=== PATIENT | female | born 1990 | race Caucasian/White ===

== ENCOUNTER → 2017-06-21 09:52 | Observation (INO) ==
[2017-06-20 16:28] LABS: Bilirubin,Urine Negative (Negative); Blood,Urine Negative (Negative); Clarity,Urine Clear (Clear); Color,Urine Yellow (Yellow); Glucose,Urine (UA) 100 mg/dL (Normal); Ketones,Urine Negative (Negative); Leukocyte Esterase,Urine Negative (Negative); Nitrite,Urine Negative (Negative); Protein,Urine Negative (Neg-Trace); Specific Gravity,Urine 1.022 (1.010-1.025); Urobilinogen,Urine Normal (Normal)
[2017-06-20 16:57] LABS: Basophils % 0.2 %; Eosinophils % 0.4 %; Hematocrit 35.7 % (35.3-44.9); Hemoglobin 12.6 g/dL (11.5-15.4); Immature Granulocytes % 0.8 % (0-4); Lymphocytes # 2.1 K/mcL (0.6-4.6); Lymphocytes % 21.2 %; Mean Corpuscular HGB Conc 35.3 g/dL (31.6-35.5); Mean Corpuscular Hemoglobin 32.1 pg (28.0-33.3); Mean Corpuscular Volume 90.8 fL (83.0-100.0); Mean Platelet Volume 10.8 fL (9.4-12.4); Monocytes # 0.5 K/mcL (0.0-1.3); Monocytes % 5.2 %; Neutrophils # 7.1 K/mcL (1.6-8.9); Platelet Count 186 K/mcL (140-400); Red Blood Count 3.93 M/mcL (3.82-4.97); Segmented Neutrophils % 72.2 %
--- NOTE | 2017-06-20 17:10 | OB/GYN History & Physical ---
Date of Encounter: 06/20/17 Time of Encounter: 16:58 Assessment and Plan (1) Headache in Current visit: Yes Status: Acute PIH labs - pending Serial blood pressures - pending, first blood pressure normal Qualifiers: Trimester: second trimester Qualified Code(s): O26.892 - Other specified related conditions, second trimester; R51 - Headache (2) CVA tenderness Current visit: Yes Status: Acute Urine - increased glucose (serum glucose pending) IV fluids - 1 liter LR (3) Vaginal discharge during Current visit: Yes Status: Acute Vaginosis panel pending Qualifiers: Trimester: second trimester Qualified Code(s): O26.892 - Other specified related conditions, second trimester; N89.8 - Other specified noninflammatory disorders of vagina (4) 27 weeks gestation of Current visit: Yes Status: Acute History of Present Illness Chief complaint: Back Pain HPI: Ms. Payne is a 26 year old at 27 weeks and 5 days that presents to labor and delivery triage with c/o vaginal discharge, back pain, and feeling like she has a "sledge hammer in my belly and its pushing everything out". She states positive movement. She admits to intercourse in the past 24 hours. She states she has had a headache for 24 hours and has elevated blood pressure previously in this (no documentation of this in her ) . She also states she felt feverish and had the sweats last night. She also complains that she just "doesn't feel right". Past Med Surg Social Fam HX - Past Medical History Medical history: asthma, other Psychiatric history: anxiety, depression, panic disorder - Social History Smoking Status: Never smoker Smokeless Tobacco Status: No Alcohol use: none Drug use: none - Family History Father Living Status: Still Living Hx Family Cardiac Disorders: Yes Obstetrical History - Pregnancies : 4 Para: 1 Term: 1 : 0 Ab's: 2 Livin Medications and Allergies Ondansetron [Zofran] 8 mg PO Q6HR PRN #15 tablet 10/16/15 [Rx] Albuterol Sulfate [Albuterol Inhaler] 1 puff IH 12/04/15 [History] Buspirone HCl [Buspar] 5 mg PO 12/04/15 [History] Citalopram [CeleXA] 20 mg PO DAILY 12/04/15 [History] Dextroamphetamine/Amphetamine [Adderall Xr 10 mg Capsule] 10 mg PO 12/04/15 [ History] Polymyxn-B/Trimeth Opth Drops [Polytrim Opth Drops] 2 drop RIGHT EYE QID #1 bottle 12/04/15 [Rx] Trazodone HCl [TraZODone] 100 mg PO 12/04/15 [History] Albuterol Sulfate [Proair Hfa] 1 puff IH Q4H #1 inh 01/20/16 [Rx] Azithromycin [Azithromycin 6-Tab Pack] 250 mg PO PER PKG DI #6 tab 01/20/16 [Rx] Benzonatate [Tessalon] 100 mg PO TID #30 capsule 01/20/16 [Rx] Promethazine/Codeine [Phenergan/Codeine] 5 ml PO Q4HR #240 ml 01/20/16 [Rx] Dicyclomine [Bentyl] 20 mg PO QID PRN #20 capsule 04/17/16 [Rx] Diphenoxylate/Atropine [Lomotil 2.5 mg/0.025 mg] 1 tab PO BID PRN #8 tablet 05/12 [Rx] Ondansetron [Zofran] 8 mg PO Q8HR PRN #10 tablet 12/03/16 [Rx] metroNIDAZOLE [Flagyl] 500 mg PO BID #14 tablet 01/29/17 [Rx] 3 Allergy/AdvReac Type Severity Reaction Status Date / Time Amoxicillin [From Augmentin] Allergy Diarrhea Verified 12/03/16 13:53 clavulanic acid Allergy Diarrhea Verified 12/03/16 13:53 [From Augmentin] latex Allergy Rash Verified 01/28/17 20:39 all cillins Allergy Rash Uncoded 12/04/15 07:52 Review of System OB All systems PM: reviewed and no additional remarkable complaints except as stated Exam - Constitutional Constitutional: well developed, well nourished, no acute distress, obese - HEENT HEENT: Normocephaly, Mucus Membranes Moist - Lungs Respiratory exam: CTAB - Cardiovascular Cardiovascular exam: RRR, +S1, +S2 - Breasts Breast: bilateral: normal - Abdomen Abdomen: Present: bowel sounds normal, gravid. Absent: non tender (left CVA tenderness) - Extremities Extremities exam: normal capillary refill, normal inspection, radial pulses palpable and symmetrical Deep Tendon Reflex Grade: 2+ Normal - Vulva Vulva: bilateral: normal - Vagina Vagina: Present: normal moisture - Cervix Dilation: 0 (FT) Effacement: 0 (Thick) Station: -3 - Uterus Uterus exam: Present: normal size, normal contour Results Abnormal lab results Urine Glucose (UA) 100 mg/dL (Normal) H 06/20/17 16:18 All other labs normal. - VTE Reasons for not Prescribing Prophylaxis: Treatment not Indicated - Low risk for VTE
[2017-06-20 17:13] LABS: Alanine Aminotransferase 11 Units/L (0-55); Aspartate Amino Transferase 10 Units/L (5-34); BUN/Creatinine Ratio 11 (6-26); Blood Urea Nitrogen 7 mg/dL (7-20); Lactate Dehydrogenase 160 Units/L (159-327); Uric Acid 4.4 mg/dL (2.6-6.0); eGFR For African Americans > 60 (> 60); eGFR For Non-African Americans > 60 (> 60)
[2017-06-20 17:47] LABS: Trichomonas DNA Not Detected (Not Detect)
[2017-06-20 17:48] LABS: Candida DNA Not Detected (Not Detect); Gardnerella DNA Not Detected (Not Detect)
[2017-06-20 18:10] LABS: Glucose 118 mg/dL (70-99)
[~2017-06-21 09:52] MED LIST: Ringers Solution, Lactated 1,000 ML IVC SCH; Ringers Solution, Lactated 1,000 ML ONE
== END | disposition home or self-care (01) ==
LOC: 1NENULAB
PROVIDERS: ADMIT Obstetrics & Gynecology; ATTEND Obstetrics & Gynecology

== ENCOUNTER → 2017-07-27 22:55 | Observation (INO) ==
[2017-07-27 21:02] LABS: Bilirubin,Urine Negative (Negative); Blood,Urine Negative (Negative); Clarity,Urine Cloudy (Clear); Color,Urine Yellow (Yellow); Glucose,Urine (UA) Normal (Normal); Ketones,Urine Negative (Negative); Leukocyte Esterase,Urine Negative (Negative); Nitrite,Urine Negative (Negative); Protein,Urine Negative (Neg-Trace); Urobilinogen,Urine Normal (Normal)
[2017-07-27 21:04] LABS: Amphetamine Screen,Urine Negative ng/mL (Cutoff=1000); Bacteria,Urine None Seen per hpf (None-Few); Barbiturate Screen,Urine Negative ng/mL (Cutoff=200); Benzodiazepines Screen,Urine Negative ng/mL (Cutoff=200); Cannabinoid Screen,Urine Negative ng/mL (Cutoff = 50); Cocaine Screen,Urine Negative ng/mL (Cutoff= 300); Hyaline Casts,Urine None Seen per lpf (None-Few); Opiate Screen,Urine Negative ng/mL (Cutoff=300); Phencyclidine Screen,Urine Negative ng/mL (Cutoff=25); Squamous Epithelial Cell,Urine Many per lpf (None-Few); WBC,Urine 0-3 per hpf (0-3)
[2017-07-27 21:12] LABS: Calcium Oxalate Crystals,Urine Present
--- NOTE | 2017-07-27 21:25 | OB/GYN Progress Note ---
Date of Encounter: 07/27/17 Time of Encounter: 21:22 - Assessment and Plan (1) 33 weeks gestation of Current Visit: Yes Status: Acute Bolus with 0.9 and obtain CBC. Normal urinalysis. (2) Headache in Current Visit: No Status: Acute Tylenol PO for cephalgia Qualifiers: Trimester: third trimester Qualified Code(s): O26.893 - Other specified related conditions, third trimester; R51 - Headache; R51 - Headache Subjective - Subjective Principal diagnosis: abdominal and suprapubic pain Interval history: 26 year old G4 P 1-0-2-1 at 33 0/7 weeks presents to labor and delivery with complaint of pain starting in her bilateral lower abdomen and radiating to her suprapubic area since after 5:30 pm. She is unable to states a frequency. She was also complaining of pelvic pressure and therefor was checked on arrival with gel. Following her cervical check she felt wet in her vaginal area. She denies any contractions or vaginal bleeding. She reports good movement. She also complains of a headache without visual changes. complicated by GDM> Antepartum ROS: movement normal, no vaginal bleeding Objective - Vital Signs Vital Signs: Intake and Output 07/27/17 07/27/17 07/27/17 07:59 15:59 23:59 Other: Weight 117.9 kg Patient Weight 07/27/17 23:59 Weight 117.9 kg - Exam FHR comments: baseline 132, reactive Uterus: Absent: tenderness Cervical dilation: 0 Cervix effacement: 0 Comments: Sepculum exam: negative pool, negative nitrazine, negative ferning - Labs Labs: Abnormal lab results Urine Clarity Cloudy (Clear) A 07/27/17 20:45 Urine Microscopic RBC 3-5 per hpf (0-3) H 07/27/17 20:45 Ur Squamous Epith Cells Many per lpf (None-Few) H 07/27/17 20:45
[2017-07-27 21:45] LABS: Basophils % 0.2 %; Eosinophils # 0.1 K/mcL (0.0-0.6); Hematocrit 38.2 % (35.3-44.9); Hemoglobin 13.5 g/dL (11.5-15.4); Immature Granulocytes % 0.6 % (0-4); Lymphocytes # 2.4 K/mcL (0.6-4.6); Mean Corpuscular HGB Conc 35.3 g/dL (31.6-35.5); Mean Corpuscular Hemoglobin 32.3 pg (28.0-33.3); Mean Corpuscular Volume 91.4 fL (83.0-100.0); Mean Platelet Volume 11.2 fL (9.4-12.4); Monocytes # 0.6 K/mcL (0.0-1.3); Monocytes % 6.5 %; Neutrophils # 6.4 K/mcL (1.6-8.9); Platelet Count 202 K/mcL (140-400); Red Blood Count 4.18 M/mcL (3.82-4.97); Red Cell Distribution Width 13.3 % (11.5-14.5); Segmented Neutrophils % 66.7 %
[~2017-07-27 22:55] MED LIST changes: +0.9 % Sodium Chloride 1,000 ML ONE; +0.9 % Sodium Chloride 500 ML IVC ONE; +Acetaminophen 325 MG TABLET PO ONE; -Ringers Solution, Lactated 1,000 ML IVC SCH; -Ringers Solution, Lactated 1,000 ML ONE
== END | disposition home or self-care (01) ==
LOC: 1NENULAB
PROVIDERS: ADMIT Obstetrics & Gynecology; ATTEND Obstetrics & Gynecology

== ENCOUNTER 2017-08-26 03:43 | Inpatient (IN) ==
[2017-08-26 02:57] LABS: Basophils % 0.2 %; Eosinophils # 0.1 K/mcL (0.0-0.6); Eosinophils % 0.6 %; Hematocrit 36.4 % (35.3-44.9); Hemoglobin 12.9 g/dL (11.5-15.4); Immature Granulocytes % 0.7 % (0-4); Immature Platelets 9.6 % (1.1-6.1); Lymphocytes # 2.2 K/mcL (0.6-4.6); Lymphocytes % 20.5 %; Mean Corpuscular HGB Conc 35.4 g/dL (31.6-35.5); Mean Corpuscular Hemoglobin 32.5 pg (28.0-33.3); Mean Corpuscular Volume 91.7 fL (83.0-100.0); Mean Platelet Volume 11.7 fL (9.4-12.4); Monocytes # 0.6 K/mcL (0.0-1.3); Monocytes % 5.8 %; Neutrophils # 7.8 K/mcL (1.6-8.9); Platelet Count 181 K/mcL (140-400); Red Blood Count 3.97 M/mcL (3.82-4.97); Red Cell Distribution Width 13.1 % (11.5-14.5); Segmented Neutrophils % 72.2 %
[2017-08-26 03:11] LABS: Alanine Aminotransferase 13 Units/L (0-55); Aspartate Amino Transferase 14 Units/L (5-34); BUN/Creatinine Ratio 16 (6-26); Blood Urea Nitrogen 10 mg/dL (7-20); Lactate Dehydrogenase 189 Units/L (159-327); Uric Acid 5.6 mg/dL (2.6-6.0); eGFR For African Americans > 60 (> 60); eGFR For Non-African Americans > 60 (> 60)
--- NOTE | 2017-08-26 03:36 | OB/GYN History & Physical ---
Date of Encounter: 08/26/17 Time of Encounter: 03:05 Assessment and Plan (1) 37 weeks gestation of Current visit: Yes Status: Acute admitted for delivery (2) SROM (spontaneous rupture of membranes) Current visit: Yes Status: Acute GBS: Negative (3) History of aortic stenosis Current visit: Yes Status: Acute Transfer of care from Midwives to OB physician Dr. Puckett notified (4) Elevated BP without diagnosis of hypertension Current visit: Yes Status: Acute PIH labs drawn (5) Gestational diabetes Current visit: Yes Status: Acute glucose level ordered Qualifiers: Gestational diabetes mellitus control: diet-controlled Trimester: third trimester Qualified Code(s): O24.410 - Gestational diabetes mellitus in , diet controlled History of Present Illness Chief complaint: labor HPI: Ms. Payne is a 27 year old female @ 37w2d presents to labor with complaints of contractions. Patient reports +FM. Denies headache dizziness and blurred vision or epigastric pain. After being on the unit patient reports she felt a "pop" and had a gush of fluid. Speculum exam: + pooling and + FERN test. It was also noted that patient had some elevated BP's. PIH panel and protein creat/ration was ordered. Patient was a patient of the midwives but due to HIGH RISK with history of Aortic Stenosis. Patient was seen by MFM echo complete. Mother cleared to deliver at [facility]. Patient's is also complicated by Gestational diabetes. Blood type: O Negative, Rubella: Immune, Hep B: Nonreactive GBS: Negative. Past Med Surg Social Fam HX - Past Medical History Medical history: asthma, other Psychiatric history: anxiety, depression - Social History Smoking Status: Never smoker Smokeless Tobacco Status: No Alcohol use: none Drug use: none - Family History Father Living Status: Still Living Hx Family Cardiac Disorders: Yes Obstetrical History - Pregnancies : 4 Para: 1 Term: 1 : 0 Ab's: 2 Livin - History/Complications History/Complications: Gestational DM-diet controlled Medications and Allergies Albuterol Sulfate [Proair Hfa] 1 puff IH Q4H #1 inh 01/20/16 [Rx] Vit/Iron Fumarate/FA [ Tablet] 08/26/17 [History] 3 Allergy/AdvReac Type Severity Reaction Status Date / Time Amoxicillin [From Augmentin] Allergy Diarrhea Verified 08/26/17 02:11 clavulanic acid Allergy Diarrhea Verified 08/26/17 02:11 [From Augmentin] latex Allergy Rash Verified 08/26/17 02:11 all cillins Allergy Rash Uncoded 12/04/15 07:52 Review of System OB - Constitutional Constitutional ROS IM: no chills, no fever(s), no headache(s) - Cardiovascular Cardiovascular: no chest pain, no edema, no lightheadedness, no palpitations, no rapid heart rate, no syncope - Respiratory Respiratory: no dyspnea - Gastrointestinal Gastrointestinal: no constipation, no cramping, no diarrhea, no heartburn, no nausea, no vomiting - Genitourinary Genitourinary: vaginal discharge, no abnormal vaginal bleeding, no dysuria, no flank pain, no urinary frequency, no urinary urgency, no vaginal odor, no vaginal pruritis Exam - Constitutional Constitutional: well developed, well nourished, no acute distress - HEENT HEENT: Normocephaly, Mucus Membranes Moist - Neck Neck exam: full ROM, supple - Lungs Respiratory exam: CTAB - Cardiovascular Cardiovascular exam: RRR, +S1, +S2 - Breasts Breast: bilateral: normal - Abdomen Abdomen: Present: bowel sounds normal, gravid, non tender - Extremities Extremities exam: full ROM, normal capillary refill Deep Tendon Reflex Grade: 2+ Normal - Cervix Dilation: 2 (per RN) Effacement: 80 Station: -2 - Comments Comments: FHR 135 bpm moderate variability +15x15 accels no decels noted. Cat. 1 tracing. Contractions 3-4 min apart. Results Result Diagrams: 08/26/17 02:49 Abnormal lab results Immature Plt Fraction 9.6 % (1.1-6.1) H 08/26/17 02:49 All other labs normal. - VTE Reasons for not Prescribing Prophylaxis: Treatment not Indicated - Low risk for VTE
[~2017-08-26 03:43] MED LIST changes: -0.9 % Sodium Chloride 1,000 ML ONE; -0.9 % Sodium Chloride 500 ML IVC ONE; -Acetaminophen 325 MG TABLET PO ONE; +Famotidine 20 MG/2 ML VIAL IVP PRN; +Naloxone 0.4 MG/ML INJ IVP PRN
[2017-08-26] MEDS ORDERED: Ringers Solution, Lactated 1,000 ML IVC SCH (03:45)
[2017-08-26] MEDS ORDERED: *HR* Ropivacaine/PF 0.2% 10 ML AMPUL ONE (05:10)
[2017-08-26] MEDS ORDERED: Epidural Premix (fent/bupiv) 110 ML EP ONE (05:10)
[2017-08-26] MEDS ORDERED: *HR* FentaNYL (PF) 100 MCG/2 ML VIAL ONE (05:10)
--- NOTE | 2017-08-26 05:42 | Anesthesia Evaluation PreOp ---
Date of Encounter: 08/26/17 Time of Encounter: 05:40 - Past History Planned Operation: joan Cardiac History: Other (PFO as a child) Pulmonary History: Asthma PSYCHIATRIC SPECIALIST History: Denies Any Significant HX Other Medical History: Denies Any Significant HX Anesthesia History: No Prior Anesthetic Complications, Past Anesthesia (tonsils , laparoscopy for endometriosis, ovarian cyst resection) : Yes Alcohol Use: none Drug use: none Medications and Allergies Albuterol Sulfate [Proair Hfa] 1 puff IH Q4H #1 inh 01/20/16 [Rx] Vit/Iron Fumarate/FA [ Tablet] 08/26/17 [History] 3 Allergy/AdvReac Type Severity Reaction Status Date / Time Amoxicillin [From Augmentin] Allergy Diarrhea Verified 08/26/17 02:11 clavulanic acid Allergy Diarrhea Verified 08/26/17 02:11 [From Augmentin] latex Allergy Rash Verified 08/26/17 02:11 all cillins Allergy Rash Uncoded 12/04/15 07:52 - Meds/Allergy Pre-op Review Medications Reviewed: Yes Allergies Reviewed: Yes Beta Blockers on Current Med List: No Anesthesia Results - Labs 08/26/17 02:49 08/26/17 02:49 Anesthesia Exam O2 Sat Height 1.7 m Weight 122.5 kg Weight: 122 - HEENT Pupil (Motor): Pupils equal Mallampati: III Teeth: Normal Oral Opening: Greater than 3 - PSYCHIATRIC SPECIALIST LOC: Oriented PSYCHIATRIC SPECIALIST Motor: Normal RUE, Normal LUE, Normal RLE, Normal LLE, Normal Face PSYCHIATRIC SPECIALIST Sensory: Normal: RUE, LUE, RLE, LLE, Face - Cardiac Rhythm: Regular Murmur: None JVD: No Carotid Bruit: No - Pulmonary Breath Sounds: bilateral Clear Respiratory Effort: Symmetrical Anesthesia Assess/Plan ASA Score: 3 Modified Panda Scale for Level of Consciousness: Cooperative, oriented, and tranquil Anesthetic Plan: Regional Monitoring Plan: Standard Monitors
--- NOTE | 2017-08-26 05:51 | Anesthesia Procedures ---
Date of Encounter: 08/26/17 Time of Encounter: 05:50 Procedures: Anesthesia - Epidural/Spinal Patient ID/Chart reviewed: Yes Patient examined: Yes OB Eval: Contractions: Non-stressed pattern Consent Obtained: Yes Supplemental Oxygen: None/Room Air Site Prep: Aseptic Technique Patient position: upright Local Anesthetic: Lidocaine 1% Amount of Local Anesthetic used: 3 Touhy Needle Gauge: 18 Touhy Needle Depth (cm): 8 Catheter Depth at Skin (cm): 15 Test Dose (1.5% Lido + Epi): Volume given (mls): 3 Test Dose Result: Negative Loading Dose: Fentanyl (mcg): 100 Loading Dose: Other: 5cc 0.2% ropivicaine, 3ml nss Loading Dose Administered: Thru Touhy Needle Infusion Rate (mls/hr): [address]: Tegaderm Interspace Used: L2-L3 Loss of Resistance (KAMLA): Yes Blood: No CSF: No Paresthesia: No
[2017-08-26] MEDS ORDERED: *HR* Phenylephrine 10 MG/ML VIAL ONE (05:57)
[2017-08-26] MEDS ORDERED: Chloroprocaine/PF 20 ML VIAL INFILT ONE (05:59)
[2017-08-26] MEDS ORDERED: Clindamycin 900 MG/50 ML 900 MG/50 ML IV.SOLN IVPB ONE (06:00)
[2017-08-26] MEDS ORDERED: *HR* Oxytocin 10 UNIT/ML VIAL IM ONE (06:00)
[2017-08-26] MEDS ORDERED: Ringers Solution, Lactated 1,000 ML ONE (06:19)
[2017-08-26] MEDS ORDERED: *HR* Morphine Sulfate/PF 5 MG/10 ML AMPUL ONE (06:23)
[2017-08-26] MEDS ORDERED: *HR* HYDROmorphone (PF) 1 MG/ML SYRINGE IVP PRN ×2 (06:35→10:12)
[2017-08-26] MEDS ORDERED: *HR* Promethazine 25 MG/ML VIAL IVP PRN (06:35)
--- NOTE | 2017-08-26 07:06 | OB/GYN Procedure Note ---
Section - Date of procedure: 08/26/17 Preop diagnosis: other ( at 37-2/7 weeks, spontaneous rupture membranes, gestational diabetic A1, category 3 strip, bradycardia) Post-op diagnosis: same Procedure: primary low transverse Surgeon: Sebastian Puckett Estimated blood loss (cc): 400 Anesthesiologist: Julius Kinsey Relay Dispatcher: Asif Palencia Anesthesia Type: Epidural section complications: none Disposition: L&D Recovery Room Specimens: Placenta, Cord blood, Cord gasses - (s) Infant A Infant Delivery Date: 08/26/17 Delivery Time: 06:21 Presentation: vertex Position: unknown Route of delivery: other ( section) Gender: Female Viability: Viable Pounds: 5 Ounces: 5 Gram Weight: 2.41 kg Shoulder Dystocia: not encountered Specimens collected: cord blood Placenta: spontaneous Cord: 3 umbilical vessels - Narrative Narrative: Patient is a 27-year-old 4 para 1 at 37-2/7 weeks who presented to labor and delivery complaining of contractions. Patient's blood pressure was slightly elevated in the process of getting blood work on her when she felt a pop and was noted to have spontaneous rupture membranes. Patient was grossly ruptured patient was progressing appropriately became uncomfortable and epidural was placed soon after this had bradycardia. heart tones were down in the 50s so returned back to 100 done without back to 70 to 80s. Patient was only 6 cm and then emergency was called. Procedure: Patient was taken operating room where epidural anesthesia was found be adequate. She was placed in dorsal supine position prepped and draped in usual fashion. Timeout was then obtained. Pfannenstiel incision was made with a scalpel and carried down through the underlying tissue to the fascia was identified. Fascia was nicked in midline and extended laterally with Dave scissors. The superior and inferior edges of the fascia were grasped tented up and dissected off the rectus muscles. Rectus muscles were in midline parietal peritoneum was identified tented up and entered sharply. This was extended superiorly and inferiorly with Metzenbaum scissors. The bladder blade was inserted. Vesicouterine peritoneum was identified tented up and entered sharply. This was extended laterally the bladder flap created digitally. The lower uterine segment was incised with a scalpel extended laterally with digital manipulation. The infant's head was then disengaged from the pelvis. After the incision infant was delivered cord was clamped and cut infant was handed off to waiting pediatric team. Cord blood and gases were collected and placenta was then spontaneously delivered. A self-retaining retractor Wolfgang was placed into the abdomen and then the uterus was cleaned of all clots and debris then the lower segment was closed using 0 Vicryl in a running locking stitch by 2 layer closure. Good hemostasis was noted it was copiously irrigated no active bleeding noted retractor was removed and the fascia was then closed using a #1 stratafix In a running stitch then the subcutaneous tissue was closed using an 0 chromic and then the skin was closed using a 4-0 Vicryl in a subcuticular manner. All needles lap sponge counts were correct 3. We did not do the sponge count oral instrument count at the beginning of the case so x-ray was obtained x-ray revealed nothing in the abdomen. A yosi dressing was then applied to the abdomen and the patient was taken to the recovery room in stable condition. All needles lap sponge counts again were correct she did receive preoperative antibiotics.
[2017-08-26] MEDS ORDERED: Oxytocin 20 units/ LR 1000 mL 20 UNIT/1,000 ML BAG IVC ONE (07:24)
[2017-08-26 08:58] LABS: Amphetamine Screen,Urine Negative ng/mL (Cutoff=1000); Barbiturate Screen,Urine Negative ng/mL (Cutoff=200); Benzodiazepines Screen,Urine Negative ng/mL (Cutoff=200); Cannabinoid Screen,Urine Negative ng/mL (Cutoff = 50); Cocaine Screen,Urine Negative ng/mL (Cutoff= 300); Opiate Screen,Urine Negative ng/mL (Cutoff=300); Phencyclidine Screen,Urine Negative ng/mL (Cutoff=25)
[2017-08-26] MEDS ORDERED: Simethicone 80 MG TAB.CHEW PO PRN (10:07)
[2017-08-26] MEDS ORDERED: Rho Immune Globulin 1,500 UNIT SYRINGE IM ONE (10:07)
[2017-08-26] MEDS ORDERED: Ondansetron 4 MG/2 ML VIAL IVP PRN (10:07)
[2017-08-26] MEDS ORDERED: 0.9 % Sodium Chloride 1,000 ML IVC SCH (10:07)
[2017-08-26] MEDS ORDERED: Sennosides 8.6 MG TABLET PO PRN (10:07)
[2017-08-26] MEDS ORDERED: Metoclopramide 10 MG/2 ML VIAL IVP PRN (10:07)
[2017-08-26] MEDS ORDERED: *HR* OxyCODONE/APAP 10/325 TABLET PO PRN (10:07)
[2017-08-26] MEDS ORDERED: Naloxone 0.4 MG/ML INJ IVP PRN (10:12)
[2017-08-26] MEDS ORDERED: *HR* Morphine 2 MG/ML SYRINGE IVP PRN (10:12)
--- NOTE | 2017-08-26 10:14 | Anesthesia Evaluation Post Op ---
Date of Encounter: 08/26/17 Time of Encounter: 09:50 - Lungs Lungs: Clear Ascult./Percussion - Airway Airway: Non-obstructed - Cardiovascular Regular Rate - Mental Status Mental Status: Alert & Oriented, Answers Appropriately - Pain Pain Scale: 7 Pain Scale used: Numeric (1 - 10) - Nausea Vomiting Nausea Vomiting: Not Present - Hydration Hydration: Ice chips - Discharge PostOp Status: Transfer Patient to floor Attestation: Patient alert and communicative. MOEx4. Meets criteria for floor transfer.
[2017-08-26] MEDS: Oxytocin 20 units/ LR 1000 mL 20 UNIT/1,000 ML BAG IVC SCH (15:51)
[2017-08-26] MEDS: Ibuprofen 600 MG TABLET PO PRN (20:43)
[2017-08-27] MEDS: Oxytocin 20 units/ LR 1000 mL 20 UNIT/1,000 ML BAG IVC SCH (00:11)
[2017-08-27 05:13] LABS: Basophils % 0.1 %; Eosinophils # 0.1 K/mcL (0.0-0.6); Eosinophils % 0.8 %; Hematocrit 32.6 % (35.3-44.9); Immature Granulocytes % 0.7 % (0-4); Lymphocytes # 1.9 K/mcL (0.6-4.6); Lymphocytes % 17.4 %; Mean Corpuscular HGB Conc 34.7 g/dL (31.6-35.5); Mean Corpuscular Hemoglobin 32.2 pg (28.0-33.3); Mean Corpuscular Volume 92.9 fL (83.0-100.0); Mean Platelet Volume 12.1 fL (9.4-12.4); Monocytes # 0.7 K/mcL (0.0-1.3); Monocytes % 6.2 %; Platelet Count 146 K/mcL (140-400); Red Blood Count 3.51 M/mcL (3.82-4.97); Red Cell Distribution Width 13.5 % (11.5-14.5); Segmented Neutrophils % 74.8 %
[2017-08-27 05:14] LABS: Hemoglobin 11.3 g/dL (11.5-15.4)
[2017-08-27] MEDS: Ibuprofen 600 MG TABLET PO PRN ×3 (08:43→22:05)
[2017-08-27] MEDS: Prenatal Vit/FA 1 EACH TABLET PO SCH (08:44)
--- NOTE | 2017-08-27 09:07 | OB/GYN Progress Note ---
Date of Encounter: 08/27/17 Time of Encounter: 09:05 - Assessment and Plan (1) S/P section Current Visit: Yes Status: Acute Meeting all post-op milestones. Continue to monitor. Anticipate discharge home POD 2-3. (2) Mother currently breast-feeding Current Visit: Yes Status: Acute Pt currently pumping. to see pt today. (3) Elevated BP without diagnosis of hypertension Current Visit: Yes Status: Acute BP normal at this time. Continue to monitor. (4) Gestational diabetes Current Visit: Yes Status: Acute Pt will need 2 hour GTT in 6 weeks. Qualifiers: Gestational diabetes mellitus control: diet-controlled Trimester: third trimester Qualified Code(s): O24.410 - Gestational diabetes mellitus in , diet controlled Subjective - Subjective Patient reports: appetite normal, voiding normally, pain well controlled, ambulating normally : in NICU (on oxygen) Objective - Vital Signs Latest vital signs: Vital Signs Temp Pulse Resp BP Pulse Ox 08/27/17 08:32 16 99 08/27/17 08:27 98.2 F 93 16 136/83 98 08/27/17 04:47 16 98 08/27/17 00:39 17 96 08/27/17 00:15 97.8 F 95 16 110/82 95 08/26/17 20:15 98.0 F 101 16 120/75 98 08/26/17 13:00 98.0 F 83 16 122/74 97 08/26/17 12:00 98.7 F 88 16 120/68 98 08/26/17 11:00 98.2 F 88 16 121/70 98 08/26/17 10:30 98.1 F 78 16 127/71 96 08/26/17 10:00 98.0 F 81 16 125/71 96 Intake and Output 08/26/17 08/27/17 08/27/17 23:59 07:59 15:59 Intake Total 1500 / 1500 1000 / 1000 1000 / 1000 Output Total 800 / 800 300 / 300 Balance 700 / 700 1000 / 1000 700 / 700 Intake: IV Fluids 1000 / 1000 1000 / 1000 Pitocin 20 unit In 1,000 ml @ 1000 / 1000 1000 / 1000 125 mls/hr IVC .Q8H ALETHA Rx#: [id number] Oral 500 / 500 1000 / 1000 Output: Urine 300 / 300 Catheter 800 / 800 Other: # Voids 1 Weight 123.462 kg Patient Weight 08/27/17 23:59 Weight 123.462 kg - Exam Lungs: bilateral: normal Chest: Normal S1, Normal S2 Extremities: Present: normal, edema (mild bilaterally) Abdomen: Present: soft Incision: Present: dressed (CANDICE dry and intact) Uterus: Present: firm Fundal Height: 1 (U/1) - Labs Labs: Laboratory Results - last 24 hr 08/26/17 08/27/17 14:50 04:35 WBC 10.8 RBC 3.51 L Hgb 11.3 L D Hct 32.6 L MCV 92.9 MCH 32.2 MCHC 34.7 RDW 13.5 Plt Count 146 MPV 12.1 Immature Gran % 0.7 Seg Neutrophils % 74.8 Lymphocytes % 17.4 Monocytes % 6.2 Eosinophils % 0.8 Basophils % 0.1 Neutrophils # 8.0 Lymphocytes # 1.9 Monocytes # 0.7 Eosinophils # 0.1 Basophils # 0.0 Screen NEGATIVE Baby's Blood Type B RH POSITIVE Mother's Blood Type O RH NEGATIVE Rhogam Indicated YES Rhogam Req for Mother 1
[2017-08-27] MEDS: *HR* OxyCODONE/APAP 5/325 TABLET PO PRN (22:04)
[2017-08-28] MEDS: *HR* OxyCODONE/APAP 5/325 TABLET PO PRN ×4 (06:38→23:06)
[2017-08-28] MEDS: Ibuprofen 600 MG TABLET PO PRN ×2 (06:38→21:42)
[2017-08-28] MEDS: Prenatal Vit/FA 1 EACH TABLET PO SCH (08:26)
--- NOTE | 2017-08-28 09:52 | Discharge Summary ---
Date of Encounter: 08/28/17 Time of Encounter: 09:30 - Discharge Diagnosis (1) S/P section Priority: Primary Status: Acute Comments: Pain well managed on po pain medication, pumping breast milk, in nursery on oxygen, desires discharge to guest status (2) 37 weeks gestation of Priority: Primary Status: Resolved - Discharge Medications Prescriptions: Ibuprofen [Motrin] 600 mg PO Q6HR PRN #60 tablet PRN Reason: Cramping OxyCODONE/APAP 5/325 [Percocet 5/325 MG] 1 each PO Q6HR PRN #20 tablet PRN Reason: Moderate pain 4-6 Breast Pump [BREAST PUMP] 1 each .ROUTE AD #1 each Docusate [Colace] 100 mg PO BID #30 capsule Home Medications: Albuterol Sulfate [Proair Hfa] 1 puff IH Q4H #1 inh 01/20/16 [Rx] Vit/Iron Fumarate/FA [ Tablet] 08/26/17 [History] Breast Pump [BREAST PUMP] 1 each .ROUTE AD #1 each 08/28/17 [Rx] Docusate [Colace] 100 mg PO BID #30 capsule 08/28/17 [Rx] Ibuprofen [Motrin] 600 mg PO Q6HR PRN #60 tablet 08/28/17 [Rx] OxyCODONE/APAP 5/325 [Percocet 5/325 MG] 1 each PO Q6HR PRN #20 tablet 08/28/17 [Rx] Allergies/Adverse Reactions: 3 Allergy/AdvReac Type Severity Reaction Status Date / Time Amoxicillin [From Augmentin] Allergy Diarrhea Verified 08/26/17 02:11 clavulanic acid Allergy Diarrhea Verified 08/26/17 02:11 [From Augmentin] latex Allergy Rash Verified 08/26/17 02:11 all cillins Allergy Rash Uncoded 12/04/15 07:52 Data Procedures and tests throughout hospitalization: Laboratory Tests 08/26/17 08/26/17 08/26/17 02:20 02:49 02:49 WBC 10.8 RBC 3.97 Hgb 12.9 Hct 36.4 MCV 91.7 MCH 32.5 MCHC 35.4 RDW 13.1 Plt Count 181 MPV 11.7 Immature Gran % 0.7 Seg Neutrophils % 72.2 Lymphocytes % 20.5 Monocytes % 5.8 Eosinophils % 0.6 Basophils % 0.2 Neutrophils # 7.8 Lymphocytes # 2.2 Monocytes # 0.6 Eosinophils # 0.1 Basophils # 0.0 Immature Plt Fraction 9.6 H BUN 10 Creatinine 0.64 Est GFR ( Amer) > 60 Est GFR (Non-Af Amer) > 60 BUN/Creatinine Ratio 16 Glucose Uric Acid 5.6 AST 14 ALT 13 Lactate Dehydrogenase 189 Urine Opiates Screen Negative Ur Barbiturates Screen Negative Ur Phencyclidine Scrn Negative Ur Amphetamines Screen Negative U Benzodiazepines Scrn Negative Urine Cocaine Screen Negative U Marijuana (THC) Screen Negative Screen Baby's Blood Type Mother's Blood Type Rhogam Indicated Rhogam Req for Mother 08/26/17 08/26/17 08/27/17 02:49 14:50 04:35 WBC 10.8 RBC 3.51 L Hgb 11.3 L D Hct 32.6 L MCV 92.9 MCH 32.2 MCHC 34.7 RDW 13.5 Plt Count 146 MPV 12.1 Immature Gran % 0.7 Seg Neutrophils % 74.8 Lymphocytes % 17.4 Monocytes % 6.2 Eosinophils % 0.8 Basophils % 0.1 Neutrophils # 8.0 Lymphocytes # 1.9 Monocytes # 0.7 Eosinophils # 0.1 Basophils # 0.0 Immature Plt Fraction BUN Creatinine Est GFR ( Amer) Est GFR (Non-Af Amer) BUN/Creatinine Ratio Glucose 86 Uric Acid AST ALT Lactate Dehydrogenase Urine Opiates Screen Ur Barbiturates Screen Ur Phencyclidine Scrn Ur Amphetamines Screen U Benzodiazepines Scrn Urine Cocaine Screen U Marijuana (THC) Screen Screen NEGATIVE Baby's Blood Type B RH POSITIVE Mother's Blood Type O RH NEGATIVE Rhogam Indicated YES Rhogam Req for Mother 1 - Impressions ITS Impressions KUB X-Ray 08/26/17 00:00 IMPRESSION: No retained foreign bodies are seen to the visualized abdomen. D/ / 08/26/2017 07:26:34 Lasha Anne MD / sheyla Interpreting Provider: Lasha Anne MD Date of admission: 08/26/17 03:43 Primary care physician: José Antonio Palacios MD Discharging clinician: Casey Alvarez Anticipated date of discharge: 08/28/17 - Patient Status Disposition: Home, Self-Care Condition: Good Functional capacity at discharge: independent ambulation Overall status at discharge: patient is progressing back to baseline - Discharge Instructions - Diet and Activity Activity: resume usual activities as tolerated Diet: regular diet Hospital Course Reason for admission: rupture of membranes, IUP at term Delivery: section Episiotomy: none Laceration: none Other procedures: none complications: none Discharge diagnosis: IUP at term delivered baby: female Hospital course: Ms. Payne is a 27 year old female at 37w2d presented to labor with complaints of contractions. Patient reported +FM. Denied headache dizziness and blurred vision or epigastric pain. Was a patient of the midwives but due to HIGH RISK with history of Aortic Stenosis patient was seen by M echo complete. Mother was cleared to deliver at [facility]. Patient's was also complicated by Gestational diabetes. After being on the unit patient reported she felt a "pop" and had a gush of fluid. Speculum exam revealed + pooling and + FERN test. Patient was grossly ruptured and was progressing appropriately but became uncomfortable and epidural was placed soon after she had bradycardia. heart tones were down in the 50s so returned back to 100 done without back to 70 to 80s. Patient was only 6 cm and then emergency was called. Patient was taken operating room where epidural anesthesia was found be adequate. She was placed in dorsal supine position prepped and draped in usual fashion. Timeout was then obtained. Pfannenstiel incision was made with a scalpel and carried down through the underlying tissue to the fascia was identified. Fascia was nicked in midline and extended laterally with Dave scissors. The superior and inferior edges of the fascia were grasped tented up and dissected off the rectus muscles. Rectus muscles were in midline parietal peritoneum was identified tented up and entered sharply. This was extended superiorly and inferiorly with Metzenbaum scissors. The bladder blade was inserted. Vesicouterine peritoneum was identified tented up and entered sharply. This was extended laterally the bladder flap created digitally. The lower uterine segment was incised with a scalpel extended laterally with digital manipulation. The infant's head was then disengaged from the pelvis. After the incision was delivered cord was clamped and cut infant was handed off to waiting pediatric team. Cord blood and gases were collected and placenta was then spontaneously delivered. A self-retaining retractor Wolfgang was placed into the abdomen and then the uterus was cleaned of all clots and debris then the lower segment was closed using 0 Vicryl in a running locking stitch by 2 layer closure. Good hemostasis was noted it was copiously irrigated no active bleeding noted retractor was removed and the fascia was then closed using a #1 stratafix In a running stitch then the subcutaneous tissue was closed using an 0 chromic and then the skin was closed using a 4-0 Vicryl in a subcuticular manner. All needles lap sponge counts were correct 3. We did not do the sponge count oral instrument count at the beginning of the case so x-ray was obtained x-ray revealed nothing in the abdomen. A yosi dressing was then applied to the abdomen and the patient was taken to the recovery room in stable condition. All needles lap sponge counts again were correct she did receive preoperative antibiotics. When seen today, patient says she is doing well and is in good mood. Her baby is currently in the nursery and is on oxygen. She has been using the breast- pump to feed her baby due to difficulty latching on and in nursery. She says her vaginal bleeding is light and has been improving since the delivery. She rates her abdominal cramping at about a 5/10. She has been able to void and have a bowel movement. She has been able to ambulate independently. She denies any headaches, vision changes, nausea, vomiting, chest, fever, or chills. Patient does admit to some shortness of breath but she has a history of asthma. She is also complaining of a new onset swelling in both her legs. She says it gets worse when she walks or stands for a while. She was encouraged to keep walking. We will monitor her swelling. She has a follow-up appointment with Dr. Puckett on 09/10/17. - Date of procedure: 08/26/17 Preop diagnosis: other ( at 37-2/7 weeks, spontaneous rupture membranes, gestational diabetic A1, category 3 strip, bradycardia) Post-op diagnosis: same Procedure: primary low transverse Surgeon: Sebastian Puckett Estimated blood loss (cc): 400 Anesthesiologist: Julius Kinsey Validation Scientist: Asif Palencia Anesthesia Type: Epidural section complications: none Disposition: L&D Recovery Room Specimens: Placenta, Cord blood, Cord gasses - (s) Infant A Infant Delivery Date: 08/26/17 Delivery Time: 06:21 Presentation: vertex Position: unknown Route of delivery: other ( section) Gender: Female Viability: Viable Pounds: 5 Ounces: 5 Gram Weight: 2.41 kg Shoulder Dystocia: not encountered Specimens collected: cord blood Placenta: spontaneous Cord: 3 umbilical vessels Time Attestation: Total time spent providing and/or coordinating discharge services: Time Spent: Less than 30 minutes - VTE Reasons for not Prescribing Prophylaxis: Treatment not Indicated - Low risk for VTE Documentation of Mechanical Device: Intermittent pneumatic compression device Exam - Constitutional Vitals: Temp Pulse Resp BP Pulse Ox 97.8 F 84 16 122/80 98 08/28/17 09:12 08/28/17 09:12 08/28/17 09:12 08/28/17 09:12 08/28/17 04:19 General appearance IM: A&O X 3, pleasant, no acute distress, answers questions appropriately - Respiratory Respiratory exam: Present: CTAB. Absent: rales, rhonchi, wheezes - Cardiovascular Cardiovascular exam IM: Present: RRR, +S1, +S2 - GI/Abdominal GI/Abdominal exam IM: normal bowel sounds, soft, tenderness Incision: normal, dry, dressed - Uterine Tone: Firm Uterus Position: At Umbilicus - Extremities Exam Extremities exam IM: Present: calf tenderness (Bilateral. Right worse than left. swelling equal bilaterally, no warmth noted. ), full ROM, normal capillary refill, pedal edema (+1 bilateral pitting edema), tenderness ( Tenderness in both legs and feet. ) - Neurological Exam Neurological exam: reflexes normal, no focal deficits
[2017-08-29] MEDS: *HR* OxyCODONE/APAP 5/325 TABLET PO PRN ×2 (06:12→09:42)
[2017-08-29] MEDS: Ibuprofen 600 MG TABLET PO PRN (06:12)
[2017-08-29 09:17] VITALS: BP 143/90
[2017-08-29] MEDS: Prenatal Vit/FA 1 EACH TABLET PO SCH (09:41)
--- NOTE | 2017-08-29 10:04 | Discharge Summary ---
Date of Encounter: 08/29/17 Time of Encounter: 10:02 - Discharge Diagnosis (1) Elevated BP without diagnosis of hypertension Priority: Secondary Status: Acute Comments: Continue routine monitoring of vital signs. (2) Breast feeding status of mother Priority: Secondary Status: Acute Comments: support prn (3) S/P section Priority: Primary Status: Acute Comments: Routine care Discharge home today - Discharge Medications Prescriptions: Ibuprofen [Motrin] 600 mg PO Q6HR PRN #60 tablet PRN Reason: Cramping OxyCODONE/APAP 5/325 [Percocet 5/325 MG] 1 each PO Q6HR PRN #20 tablet PRN Reason: Moderate pain 4-6 Breast Pump [BREAST PUMP] 1 each .ROUTE AD #1 each Docusate [Colace] 100 mg PO BID #30 capsule Home Medications: Albuterol Sulfate [Proair Hfa] 1 puff IH Q4H #1 inh 01/20/16 [Rx] Vit/Iron Fumarate/FA [ Tablet] 08/26/17 [History] Breast Pump [BREAST PUMP] 1 each .ROUTE AD #1 each 08/28/17 [Rx] Docusate [Colace] 100 mg PO BID #30 capsule 08/28/17 [Rx] Ibuprofen [Motrin] 600 mg PO Q6HR PRN #60 tablet 08/28/17 [Rx] OxyCODONE/APAP 5/325 [Percocet 5/325 MG] 1 each PO Q6HR PRN #20 tablet 08/28/17 [Rx] Allergies/Adverse Reactions: 3 Allergy/AdvReac Type Severity Reaction Status Date / Time Amoxicillin [From Augmentin] Allergy Diarrhea Verified 08/26/17 02:11 clavulanic acid Allergy Diarrhea Verified 08/26/17 02:11 [From Augmentin] latex Allergy Rash Verified 08/26/17 02:11 all cillins Allergy Rash Uncoded 12/04/15 07:52 Data Procedures and tests throughout hospitalization: Laboratory Tests 08/26/17 08/26/17 08/26/17 02:20 02:49 02:49 WBC 10.8 RBC 3.97 Hgb 12.9 Hct 36.4 MCV 91.7 MCH 32.5 MCHC 35.4 RDW 13.1 Plt Count 181 MPV 11.7 Immature Gran % 0.7 Seg Neutrophils % 72.2 Lymphocytes % 20.5 Monocytes % 5.8 Eosinophils % 0.6 Basophils % 0.2 Neutrophils # 7.8 Lymphocytes # 2.2 Monocytes # 0.6 Eosinophils # 0.1 Basophils # 0.0 Immature Plt Fraction 9.6 H BUN 10 Creatinine 0.64 Est GFR ( Amer) > 60 Est GFR (Non-Af Amer) > 60 BUN/Creatinine Ratio 16 Glucose Uric Acid 5.6 AST 14 ALT 13 Lactate Dehydrogenase 189 Urine Opiates Screen Negative Ur Barbiturates Screen Negative Ur Phencyclidine Scrn Negative Ur Amphetamines Screen Negative U Benzodiazepines Scrn Negative Urine Cocaine Screen Negative U Marijuana (THC) Screen Negative Screen Baby's Blood Type Mother's Blood Type Rhogam Indicated Rhogam Req for Mother 08/26/17 08/26/17 08/27/17 02:49 14:50 04:35 WBC 10.8 RBC 3.51 L Hgb 11.3 L D Hct 32.6 L MCV 92.9 MCH 32.2 MCHC 34.7 RDW 13.5 Plt Count 146 MPV 12.1 Immature Gran % 0.7 Seg Neutrophils % 74.8 Lymphocytes % 17.4 Monocytes % 6.2 Eosinophils % 0.8 Basophils % 0.1 Neutrophils # 8.0 Lymphocytes # 1.9 Monocytes # 0.7 Eosinophils # 0.1 Basophils # 0.0 Immature Plt Fraction BUN Creatinine Est GFR ( Amer) Est GFR (Non-Af Amer) BUN/Creatinine Ratio Glucose 86 Uric Acid AST ALT Lactate Dehydrogenase Urine Opiates Screen Ur Barbiturates Screen Ur Phencyclidine Scrn Ur Amphetamines Screen U Benzodiazepines Scrn Urine Cocaine Screen U Marijuana (THC) Screen Screen NEGATIVE Baby's Blood Type B RH POSITIVE Mother's Blood Type O RH NEGATIVE Rhogam Indicated YES Rhogam Req for Mother 1 - Impressions ITS Impressions KUB X-Ray 08/26/17 00:00 IMPRESSION: No retained foreign bodies are seen to the visualized abdomen. D/ / 08/26/2017 07:26:34 Lasha Anne MD / sheyla Interpreting Provider: Lasha Anne MD Date of admission: 08/26/17 03:43 Primary care physician: José Antonio Palacios MD Discharging clinician: Miriam Pedroza Anticipated date of discharge: 08/29/17 - Patient Status Disposition: Home, Self-Care Condition: Good Functional capacity at discharge: independent ambulation - Discharge Instructions Follow Up With: José Antonio Palacios MD [Primary Care Provider] - Sebastian Puckett DO [Partnered Physician] - - Diet and Activity Activity: resume usual activities as tolerated Diet: regular diet Hospital Course Reason for admission: rupture of membranes Delivery: section Episiotomy: none Laceration: none Other procedures: none complications: none Discharge diagnosis: IUP at term delivered baby: female Time Attestation: Total time spent providing and/or coordinating discharge services: Time Spent: Less than 30 minutes - VTE Reasons for not Prescribing Prophylaxis: Treatment not Indicated - Low risk for VTE Documentation of Mechanical Device: Intermittent pneumatic compression device Exam - Constitutional Vitals: Temp Pulse Resp BP Pulse Ox 98.0 F 97 18 143/90 100 08/29/17 07:30 08/29/17 07:30 08/29/17 07:30 08/29/17 07:30 08/28/17 21:45 General appearance IM: A&O X 3, pleasant, no acute distress, answers questions appropriately - Respiratory Respiratory exam: Present: CTAB - Cardiovascular Cardiovascular exam IM: Present: RRR, +S1, +S2 - GI/Abdominal GI/Abdominal exam IM: normal bowel sounds, soft Incision: dressed (CANDICE dressing in place) - Rectal Rectal exam: deferred - Uterine Tone: Firm Uterus Position: 1 Finger Below Umbilicus, Midline - Extremities Exam Extremities exam IM: Present: full ROM, normal capillary refill, normal inspection - Neurological Exam Neurological exam: alert, oriented X3
== END 2017-08-29 10:22 | disposition home or self-care (01) | DRG 765 ==
LOC: 1NENULAB → 1NENUOBS 10:33
PROVIDERS: ADMIT Advanced Practice Midwife; ATTEND Advanced Practice Midwife

== ENCOUNTER 2017-08-31 14:32 | Inpatient (IN) ==
[2017-08-31] MEDS ORDERED: Piperacillin/Tazobactam 3.375 GM in D5% in Water (Mini-Bag+) 100 ML IVPB ONE (15:05)
[2017-08-31] MEDS ORDERED: 0.9 % Sodium Chloride 1,000 ML IVC ONE (15:05)
[2017-08-31] MEDS ORDERED: Vancomycin 1,750 MG in D5% in Water 250 ML IVPB ONE (15:05)
[2017-08-31] MEDS ORDERED: Ipratropium/Albuterol Neb 3 ML IH ONE (15:10)
[2017-08-31] MEDS ORDERED: Levofloxacin 750 MG/150 ML 750 MG/150 ML BAG IVPB ONE (15:11)
[2017-08-31] MEDS ORDERED: MetroNIDAZOLE 500 MG/100 ML 500 MG/100 ML BAG IVPB ONE (15:11)
[2017-08-31] MEDS ORDERED: Vancomycin 1,750 MG in D5% in Water 500 ML IVPB ONE (15:14)
[2017-08-31] MEDS ORDERED: Piperacillin/Tazobactam 3.375 GM in D5% in Water 50 ML IVPB ONE (15:17)
[2017-08-31 15:18] LABS: Basophils % 0.1 %; Eosinophils % 0.3 %; Hematocrit 33.9 % (35.3-44.9); Hemoglobin 11.9 g/dL (11.5-15.4); Immature Granulocytes % 0.7 % (0-4); Lymphocytes # 0.6 K/mcL (0.6-4.6); Lymphocytes % 5.8 %; Mean Corpuscular HGB Conc 35.1 g/dL (31.6-35.5); Mean Corpuscular Hemoglobin 32.2 pg (28.0-33.3); Mean Corpuscular Volume 91.9 fL (83.0-100.0); Monocytes # 0.4 K/mcL (0.0-1.3); Monocytes % 4.6 %; Neutrophils # 8.4 K/mcL (1.6-8.9); Platelet Count 205 K/mcL (140-400); Red Blood Count 3.69 M/mcL (3.82-4.97); Red Cell Distribution Width 12.8 % (11.5-14.5); Segmented Neutrophils % 88.5 %
[2017-08-31 15:24] LABS: INR 1.1; Prothrombin Time 12.4 Seconds (9.4-12.1)
--- NOTE | 2017-08-31 15:24 | Emergency Department Note ---
Disposition Clinical Impression: Pleural effusion, Elevated troponin I level, Exertional dyspnea Disposition: Admitted As Inpatient Condition: Fair Time of Disposition: 17:43 General Adult HPI - General Chief complaint: ED Wound/Laceration Stated complaint: Incision infection, fever, PAU Time Seen by Provider: 08/31/17 14:57 Source: patient, family Limitations: no limitations Nursing Notes Reviewed: Yes Vital Signs Reviewed: Yes - History of Present Illness HPI Narrative: Vannessa Payne is a 27yo F in room 21 with pmhx of asthma who presents to ED today with complaint of incisional abdominal pain and SOB. She recently underwent an emergent on 08/26/17 and has a wound vac in place. She states yesterday she started having burning pain at incision site that has gotten progressively worse and been constant. She also complains of drainage at edges of wound vac. She states the SOB came on today and is worse when she is up moving or laying flat. She also complains of subjective f/c, nausea, and burning pain with urination. She denies any history of blood clots and says the swelling in her legs is dependent and worse in the evening. Denies any chest pain, problems with BMs. Patient states she has had a prior heart attack secondary to stress induced. Onset (ago): day(s) Location: abdomen Radiation: non-radiation Pain Severity: severe Pain Scale: 9 Quality: aching Consistency: constant Improves with: nothing Worsens with: nothing Associated symptoms: Reports: fever/chills, nausea/vomiting, shortness of breath Treatments Prior to Arrival: none - Related Data Home Medications Medication Instructions Recorded Confirmed Vit/Iron Fumarate/FA 1 tab PO DAILY 08/26/17 08/31/17 [ Tablet] Albuterol Sulfate [Proair Hfa] 2 puff IH Q4H PRN 08/31/17 08/31/17 Previous Rx's Medication Instructions Recorded Ibuprofen [Motrin] 600 mg PO Q6HR PRN #60 tablet 08/28/17 OxyCODONE/APAP 5/325 [Percocet 1 each PO Q6HR PRN #20 tablet 08/28/17 5/325 MG] Allergies Allergy/AdvReac Type Severity Reaction Status Date / Time Amoxicillin [From Augmentin] Allergy Diarrhea Verified 08/31/17 14:46 clavulanic acid Allergy Diarrhea Verified 08/31/17 14:46 [From Augmentin] latex Allergy Rash Verified 08/31/17 14:46 all cillins Allergy Rash Uncoded 12/04/15 07:52 All systems ED: reviewed and negative except as stated. Past Medical History - Past Medical History Attestation: Yes The following information was validated with the patient. Source: patient Medical history: Reports: asthma, other Psychiatric history: Reports: anxiety, depression [facility] history: Reports: endometriosis - Social History Smoking Status: Never smoker Smokeless Tobacco Status: No Alcohol use: Reports: none Drug use: Reports: none Physical Exam - General Limitations: no limitations General appearance: alert, other - Head Head exam: atraumatic, normocephalic, normal inspection - Eye Eye exam: Present: normal appearance, EOMI - ENT ENT exam: normal exam, normal oropharynx, mucous membranes moist - Neck Neck exam: Present: normal inspection, full ROM, trachea midline - Chest Chest inspection: Present: normal inspection, symmetric chest wall rise - Respiratory Respiratory exam: Present: normal lung sounds bilaterally - Cardiovascular Cardiovascular exam: Present: normal rhythm, tachycardia - Abdominal Exam Abdominal exam: Present: soft, tenderness, diminished bowel sounds Abdominal tenderness: Present: suprapubic, diffuse, severe - Extremities Exam Extremities exam: Present: normal inspection, full ROM, pedal edema (2+). Absent: tenderness - Back Exam Back exam: Present: normal inspection, full ROM. Absent: tenderness - Neurological Exam Neurological exam: Present: alert, oriented X3 - Psychiatric Psychiatric exam: Present: normal affect, normal mood - Skin Skin exam: Present: warm, dry, intact, normal color Course Course Narrative: Patient seen and examined. Generalized abdominal pain over the region of her C- section. She has a wound VAC in place. No surrounding erythema around the wound VAC. I do not appreciate any leakage of fluid around it. She is very tender to palpation. Patient is tachycardic in the 130s and feels short of breath. Her lung sounds are clear bilaterally though she states her difficulty breathing is worse with exertion and worse when laying down. No prior history of heart problems. Concern for possible pulmonary embolus. We will get sepsis/ critical care workup, CTA of the chest to rule out pulmonary embolus, CT with IV contrast of the abdomen and pelvis to evaluate surgical area. We will go ahead and start vancomycin, Levaquin, Flagyl. We will give a liter of IV fluids as her blood pressure is 98 over 60s. - Reevaluation(s) Reevaluation #1: Lab called with a critical troponin of 0.24. Patient CTA scan shows bilateral pleural effusions. No pulmonary embolus. The patient's fluids had already finished secondary to us initially working her up for possible sepsis. Her lab work does not show any signs of a leukocytosis and she is afebrile here. Since she appears to be more fluid overloaded, we will give her a dose of 40 mg IV Lasix. I discussed the case with dropper tank storage Dr. Fields who will consult on the patient tomorrow. States they will do an echocardiogram tomorrow to assess for possible cardiomyopathy. States this can cause an elevation in the troponin. We will also go ahead and give a dose of aspirin. Patient's abdominal CT just shows normal postoperative changes. No signs of an intra- abdominal abscess. I discussed with [facility] Dr. Puckett who states they can consult if the hospitalist would like them to. Will admit to hospitalist for concern for congestive heart failure/post cardiomyopathy/elevated troponin. Awaiting call back. Time: 17:24 Vital Signs Temperature 98.4 F 08/31/17 14:41 Pulse Rate 136 08/31/17 14:41 Respiratory Rate 22 08/31/17 14:41 Blood Pressure 95/57 08/31/17 14:41 O2 Sat by Pulse Oximetry 95 08/31/17 14:41 Temperature 98.4 F 08/31/17 14:41 Pulse Rate 107 08/31/17 17:56 Respiratory Rate 18 08/31/17 17:56 Blood Pressure 137/87 08/31/17 17:56 O2 Sat by Pulse Oximetry 96 08/31/17 17:56 Oxygen Delivery Oxygen Delivery Nasal Cannula Medical Decision Making - Medical Records Medical records reviewed: Yes I reviewed the patient's medical records. - Lab Data Lab results reviewed: Yes I reviewed the patient's lab results. Result diagrams: 08/31/17 14:55 08/31/17 14:55 Lab Results 08/31/17 08/31/17 08/31/17 Range/Units 14:55 14:55 14:55 WBC 9.5 (4.3-11.1) K/mcL RBC 3.69 L (3.82-4.97) M/mcL Hgb 11.9 (11.5-15.4) g/dL Hct 33.9 L (35.3-44.9) % MCV 91.9 (83.0-100.0) fL MCH 32.2 (28.0-33.3) pg MCHC 35.1 (31.6-35.5) g/dL RDW 12.8 (11.5-14.5) % Plt Count 205 (140-400) K/mcL MPV 11.0 (9.4-12.4) fL Immature Gran % 0.7 (0-4) % Seg Neutrophils % 88.5 % Lymphocytes % 5.8 % Monocytes % 4.6 % Eosinophils % 0.3 % Basophils % 0.1 % Neutrophils # 8.4 (1.6-8.9) K/mcL Lymphocytes # 0.6 (0.6-4.6) K/mcL Monocytes # 0.4 (0.0-1.3) K/mcL Eosinophils # 0.0 (0.0-0.6) K/mcL Basophils # 0.0 (0.0-0.2) K/mcL PT 12.4 H (9.4-12.1) Seconds INR 1.1 APTT 21.1 L (26.0-36.0) Seconds VBG pH (7.32-7.42) pH Units VBG pCO2 (41-51) mmHg VBG pO2 (25-50) mmHg VBG HCO3 (21-27) mEq/L Sodium 138 (136-145) mEq/L Potassium 3.9 (3.5-4.5) mEq/L Chloride 107 (98-109) mEq/L Carbon Dioxide 19 (19-29) mEq/L BUN 14 (7-20) mg/dL Creatinine 0.68 (0.57-1.11) mg/dL Est GFR ( Amer) > 60 (> 60) Est GFR (Non-Af Amer) > 60 (> 60) BUN/Creatinine Ratio 21 (6-26) Glucose 90 (70-99) mg/dL Calculated Osmolality 286 (280-300) Lactic Acid (0.5-2.2) mmol/L Calcium 8.1 L (8.6-10.8) mg/dL Phosphorus 3.2 (2.3-4.7) mg/dL Magnesium 1.6 (1.6-2.6) mg/dL Total Bilirubin 0.7 (0.2-1.2) mg/dL Direct Bilirubin 0.3 (0.0-0.5) mg/dL Indirect Bilirubin 0.4 (0.0-1.2) mg/dL AST 22 (5-34) Units/L ALT 20 (0-55) Units/L Alkaline Phosphatase 112 (38-126) Units/L Troponin I (0-0.03) ng/mL B-Natriuretic Peptide (0-100) pg/mL Serum Total Protein 5.8 L (6.0-8.3) g/dL Albumin 2.6 L (3.5-5.0) g/dL Globulin 3.2 (2.4-3.5) g/dL Albumin/Globulin Ratio 0.8 L (1.1-2.2) Urine Color (Yellow) Urine Clarity (Clear) Urine pH (5.0-8.0) pH Units Ur Specific [place] (1.010-1.025) Urine Protein (Neg-Trace) mg/dL Urine Glucose (UA) (Normal) mg/dL Urine Ketones (Negative) mg/dL Urine Blood (Negative) Urine Nitrite (Negative) Urine Bilirubin (Negative) Urine Urobilinogen (Normal) mg/dL Ur Leukocyte Esterase (Negative) Urine Microscopic RBC (0-3) per hpf Urine Microscopic WBC (0-3) per hpf Ur Squamous Epith Cells (None-Few) per lpf Ur Renal Epithelial Cell (None-Few) per hpf Urine Bacteria (None-Few) per hpf Urine Mucus (Few) Ur Culture Indicated? (NO) 08/31/17 08/31/17 08/31/17 Range/Units 14:55 14:55 14:55 WBC (4.3-11.1) K/mcL RBC (3.82-4.97) M/mcL Hgb (11.5-15.4) g/dL Hct (35.3-44.9) % MCV (83.0-100.0) fL MCH (28.0-33.3) pg MCHC (31.6-35.5) g/dL RDW (11.5-14.5) % Plt Count (140-400) K/mcL MPV (9.4-12.4) fL Immature Gran % (0-4) % Seg Neutrophils % % Lymphocytes % % Monocytes % % Eosinophils % % Basophils % % Neutrophils # (1.6-8.9) K/mcL Lymphocytes # (0.6-4.6) K/mcL Monocytes # (0.0-1.3) K/mcL Eosinophils # (0.0-0.6) K/mcL Basophils # (0.0-0.2) K/mcL PT (9.4-12.1) Seconds INR APTT (26.0-36.0) Seconds VBG pH (7.32-7.42) pH Units VBG pCO2 (41-51) mmHg VBG pO2 (25-50) mmHg VBG HCO3 (21-27) mEq/L Sodium (136-145) mEq/L Potassium (3.5-4.5) mEq/L Chloride (98-109) mEq/L Carbon Dioxide (19-29) mEq/L BUN (7-20) mg/dL Creatinine (0.57-1.11) mg/dL Est GFR ( Amer) (> 60) Est GFR (Non-Af Amer) (> 60) BUN/Creatinine Ratio (6-26) Glucose (70-99) mg/dL Calculated Osmolality (280-300) Lactic Acid 1.0 (0.5-2.2) mmol/L Calcium (8.6-10.8) mg/dL Phosphorus (2.3-4.7) mg/dL Magnesium (1.6-2.6) mg/dL Total Bilirubin (0.2-1.2) mg/dL Direct Bilirubin (0.0-0.5) mg/dL Indirect Bilirubin (0.0-1.2) mg/dL AST (5-34) Units/L ALT (0-55) Units/L Alkaline Phosphatase (38-126) Units/L Troponin I 0.24 H* (0-0.03) ng/mL B-Natriuretic Peptide 157 H (0-100) pg/mL Serum Total Protein (6.0-8.3) g/dL Albumin (3.5-5.0) g/dL Globulin (2.4-3.5) g/dL Albumin/Globulin Ratio (1.1-2.2) Urine Color (Yellow) Urine Clarity (Clear) Urine pH (5.0-8.0) pH Units Ur Specific [place] (1.010-1.025) Urine Protein (Neg-Trace) mg/dL Urine Glucose (UA) (Normal) mg/dL Urine Ketones (Negative) mg/dL Urine Blood (Negative) Urine Nitrite (Negative) Urine Bilirubin (Negative) Urine Urobilinogen (Normal) mg/dL Ur Leukocyte Esterase (Negative) Urine Microscopic RBC (0-3) per hpf Urine Microscopic WBC (0-3) per hpf Ur Squamous Epith Cells (None-Few) per lpf Ur Renal Epithelial Cell (None-Few) per hpf Urine Bacteria (None-Few) per hpf Urine Mucus (Few) Ur Culture Indicated? (NO) 08/31/17 08/31/17 Range/Units 15:15 15:54 WBC (4.3-11.1) K/mcL RBC (3.82-4.97) M/mcL Hgb (11.5-15.4) g/dL Hct (35.3-44.9) % MCV (83.0-100.0) fL MCH (28.0-33.3) pg MCHC (31.6-35.5) g/dL RDW (11.5-14.5) % Plt Count (140-400) K/mcL MPV (9.4-12.4) fL Immature Gran % (0-4) % Seg Neutrophils % % Lymphocytes % % Monocytes % % Eosinophils % % Basophils % % Neutrophils # (1.6-8.9) K/mcL Lymphocytes # (0.6-4.6) K/mcL Monocytes # (0.0-1.3) K/mcL Eosinophils # (0.0-0.6) K/mcL Basophils # (0.0-0.2) K/mcL PT (9.4-12.1) Seconds INR APTT (26.0-36.0) Seconds VBG pH 7.37 (7.32-7.42) pH Units VBG pCO2 39 L (41-51) mmHg VBG pO2 64 H (25-50) mmHg VBG HCO3 22 (21-27) mEq/L Sodium (136-145) mEq/L Potassium (3.5-4.5) mEq/L Chloride (98-109) mEq/L Carbon Dioxide (19-29) mEq/L BUN (7-20) mg/dL Creatinine (0.57-1.11) mg/dL Est GFR ( Amer) (> 60) Est GFR (Non-Af Amer) (> 60) BUN/Creatinine Ratio (6-26) Glucose (70-99) mg/dL Calculated Osmolality (280-300) Lactic Acid (0.5-2.2) mmol/L Calcium (8.6-10.8) mg/dL Phosphorus (2.3-4.7) mg/dL Magnesium (1.6-2.6) mg/dL Total Bilirubin (0.2-1.2) mg/dL Direct Bilirubin (0.0-0.5) mg/dL Indirect Bilirubin (0.0-1.2) mg/dL AST (5-34) Units/L ALT (0-55) Units/L Alkaline Phosphatase (38-126) Units/L Troponin I (0-0.03) ng/mL B-Natriuretic Peptide (0-100) pg/mL Serum Total Protein (6.0-8.3) g/dL Albumin (3.5-5.0) g/dL Globulin (2.4-3.5) g/dL Albumin/Globulin Ratio (1.1-2.2) Urine Color Dark Yellow (Yellow) Urine Clarity Clear (Clear) Urine pH 7.0 (5.0-8.0) pH Units Ur Specific [place] > 1.030 H (1.010-1.025) Urine Protein 100 H (Neg-Trace) mg/dL Urine Glucose (UA) Normal (Normal) mg/dL Urine Ketones 80 H (Negative) mg/dL Urine Blood Negative (Negative) Urine Nitrite Negative (Negative) Urine Bilirubin Small H (Negative) Urine Urobilinogen Normal (Normal) mg/dL Ur Leukocyte Esterase Negative (Negative) Urine Microscopic RBC 3-5 H (0-3) per hpf Urine Microscopic WBC 5-15 H (0-3) per hpf Ur Squamous Epith Cells Many H (None-Few) per lpf Ur Renal Epithelial Cell Few (None-Few) per hpf Urine Bacteria Few (None-Few) per hpf Urine Mucus Many H (Few) Ur Culture Indicated? NO (NO) - Radiology Data Radiology results reviewed: Yes I reviewed the patient's radiology results. Abdomen/Pelvis CT 08/31/17 15:07 IMPRESSION: Postsurgical changes in the anterior lower abdominal wall and pelvis. Tiny bilateral pleural effusions well as bilateral lower lung interlobular septal thickening. Correlation for mild edema is recommended. D/ / Swapan Dixon Cha, MD / Swapna Dixon Cha, MD Interpreting Provider: Swapna Dixon Cha, MD Chest CTA 08/31/17 15:07 IMPRESSION: 1. No evidence of pulmonary embolus. 2. Mild pulmonary edema with trace layering bilateral pleural effusions. Superimposed atypical infection is conceivable if the patient has fever or leukocytosis. D/ / Lasha Garrett MD / Lasha Garrett MD Interpreting Provider: Lasha Garrett MD - EKG Data EKG #1 EKG attestation: Yes I reviewed and interpreted this EKG. EKG results narrative: EKG done at 1528 shows sinus tachycardia with a rate of [address] elevation or depression. Normal axis. Unchanged from prior EKG done 2012. Critical Care Time Critical Care Time: Yes Total Critical Care Time: 35 Attestation: Care time 35 minutes. Attestation Statement - Attestation Attestation: Patient was seen with resident physician. I reviewed the history, physical, assessment and plan, and agree with the findings. I also personally evaluated this patient and had [id number] time with this patient. 27-year-old female presents to the emergency department with chief complaint of abdominal pain and fevers. Patient is about 5-6 days status post was relatively speaking uncomplicated. She has a wound VAC in place. She said that 2 things happened relatively recently 1 is the abdominal pain that she had went from being postoperative pain and feeling more like a burning or searing sensation this occurred in the last day simultaneously the patient noticed that she has had increased shortness of breath worse than what her asthma has been, and also some dysuria and fevers. On examination vital signs demonstrate tachycardia with some mild hypotension which resolved spontaneously while in the emergency department. ENT shows no acute abnormalities. Chest patient has diffuse wheezing worse on the left than on the right. Heart was regular rhythm but tachycardic. Abdomen is tender around the incision with no guarding or rigidity. There is no obvious signs of cellulitic changes. Extremities patient has 2+ edema in the lower extremities bilaterally which she says is improved from her . Neurologically there are no focal neurologic deficits. ED course patient essentially sepsis criteria when she came in to see us. We aggressively started hydration and other therapies. The other concern was for possible PE or other emboli and or abdominal abscess. A thorough workup to look for all of the potential causes of her fever and tachycardia and shortness of breath were started. Her troponin came back positive. CT scan of the chest did not reveal PE but possible atypical pneumonia with some CHF. CT scan of the abdomen did not reveal any abscess or acute pathology other than postsurgical changes. We discussed the case with cardiology. Patient was started on antibiotic therapy. We spoke with the hospitalist service as well as [facility] to coordinate care. Patient will be admitted to the hospitalist service for additional evaluation and treatment. Patient will be admitted to the hospital for further evaluation and treatment. Critical care time 35 minutes.
[2017-08-31 15:27] LABS: Activated Partial Thrombo Time 21.1 Seconds (26.0-36.0)
[2017-08-31 15:28] LABS: Bilirubin,Urine Small (Negative); Blood,Urine Negative (Negative); Clarity,Urine Clear (Clear); Color,Urine Dark Yellow (Yellow); Glucose,Urine (UA) Normal (Normal); Ketones,Urine 80 mg/dL (Negative); Leukocyte Esterase,Urine Negative (Negative); Nitrite,Urine Negative (Negative); Protein,Urine 100 mg/dL (Neg-Trace); Specific Gravity,Urine > 1.030 (1.010-1.025); Urobilinogen,Urine Normal (Normal)
[2017-08-31 15:31] LABS: Squamous Epithelial Cell,Urine Many per lpf (None-Few)
[2017-08-31 15:33] LABS: Alanine Aminotransferase 20 Units/L (0-55); Albumin 2.6 g/dL (3.5-5.0); Albumin/Globulin Ratio 0.8 (1.1-2.2); Alkaline Phosphatase 112 Units/L (38-126); Aspartate Amino Transferase 22 Units/L (5-34); BUN/Creatinine Ratio 21 (6-26); Bilirubin,Direct 0.3 mg/dL (0.0-0.5); Bilirubin,Indirect 0.4 mg/dL (0.0-1.2); Bilirubin,Total 0.7 mg/dL (0.2-1.2); Blood Urea Nitrogen 14 mg/dL (7-20); Calcium 8.1 mg/dL (8.6-10.8); Carbon Dioxide 19 mEq/L (19-29); Chloride 107 mEq/L (98-109); Globulin 3.2 g/dL (2.4-3.5); Glucose 90 mg/dL (70-99); Magnesium 1.6 mg/dL (1.6-2.6); Osmolality,Calculated 286 (280-300); Phosphorous 3.2 mg/dL (2.3-4.7); Potassium 3.9 mEq/L (3.5-4.5); Sodium 138 mEq/L (136-145); Total Protein 5.8 g/dL (6.0-8.3); eGFR For African Americans > 60 (> 60); eGFR For Non-African Americans > 60 (> 60)
[2017-08-31] MEDS ORDERED: *HR* Heparin 5,000 UNIT/ML VIAL IVP PRN ×2 (15:41)
[2017-08-31] MEDS ORDERED: *HR* Heparin 5,000 UNIT/ML VIAL IVP ONE (15:41)
[2017-08-31 15:45] LABS: Mucus,Urine Many (Few)
[2017-08-31] MEDS ORDERED: Heparin 25,000 UNIT/500 ML D5W 25,000 UNIT/500 ML MLS IVC SCH (15:45)
[2017-08-31 15:46] LABS: Renal Epithelial Cells,Urine Few per hpf (None-Few)
[2017-08-31 15:48] LABS: Bacteria,Urine Few per hpf (None-Few)
[2017-08-31 15:58] LABS: VBG HCO3 22 mEq/L (21-27); VBG PCO2 39 mmHg (41-51); VBG PH 7.37 pH Units (7.32-7.42); VBG PO2 64 mmHg (25-50)
[2017-08-31] MEDS ORDERED: Furosemide 40 MG/4 ML VIAL IVP ONE (16:41)
[2017-08-31] MEDS ORDERED: Ondansetron 4 MG/2 ML VIAL IVP ONE ×2 (16:52→17:25)
[2017-08-31] MEDS ORDERED: *HR* HYDROmorphone (PF) 1 MG/ML SYRINGE IVP ONE ×2 (16:52→17:25)
[2017-08-31] MEDS ORDERED: Aspirin 81 MG TAB.CHEW PO STA (17:07)
[2017-08-31] MEDS ORDERED: Naloxone 0.4 MG/ML INJ IVP PRN (20:00)
[2017-08-31] MEDS ORDERED: Ondansetron 4 MG/2 ML VIAL IVP PRN (20:00)
[2017-08-31] MEDS ORDERED: Acetaminophen 325 MG TABLET PO PRN (20:00)
[2017-08-31] MEDS ORDERED: Ibuprofen 400 MG TABLET PO PRN (20:00)
--- NOTE | 2017-08-31 20:47 | Internal Med History&Physical ---
Date of Encounter: 08/31/17 Time of Encounter: 19:30 Assessment and Plan (1) cardiomyopathy Current visit: Yes Status: Suspected 1. Will start beta saleem -- low dose. 2. Will diurese with IV lasix and place on fluid restriction of 1500 ml per day. 3. Will trend troponins, EKG's, and order ECHO for the morning. 4. Consult Cardiology for assistance in work-up and long-term management. 5. Mother encouraged to continue breast pumping but to dispose of breast milk for now. (2) Wound infection following section, Current visit: Yes Status: Acute 1. Will place on IV Vancomycin, Flagyl, and Levaquin to cover hospital acquired valente and /GI valente. 2. Blood cultures drawn in ER. 3. Consult OB and ID to assist in evaluation and management. I spoke with OB ( Dr. Lavern rodas). (3) Asthma Current visit: Yes Status: Chronic 1. Continue home MDI as needed. 2. Oxygen as needed. 3. No active wheezing presently. Qualifiers: Asthma severity: mild Asthma persistence: intermittent Asthma complication type: uncomplicated Qualified Code(s): J45.20 - Mild intermittent asthma, uncomplicated (4) DVT prophylaxis Current visit: Yes Status: Acute 1. Heparin SQ. Internal Medicine - H&P: HPI Chief complaint: SOB; wound drainage Admitted From: Emergency Dept Plans for Post Hospital Care: Home History of present illness: Ms. Payne is a 27 year old female who presents with a 2 day history of SOB, increasing LE edema, subjective fevers, and chills. She is 5 days post- and delivered by . She was just discharged 2 days ago from OB. She has a Wound Vac to her wound and notes that she has some purulent material draining from her wound. She had some vague chest pain as well prior to admission. Work-up in ER included a CTA chest -- negative for PE but did show vascular congestion and pleural effusion. She denies any problems during and, other than obesity, denies any chronic health issues. Presently, she is breathing more easily now after having received some Lasix in the ER. She denies any chest pain presently. Patient is breast feeding and pumping her breasts for milk now. I advised her for now to "pump and dump" her breast milk (not to feed her baby the breast milk) until we can decipher her condition and the safety of breast feeding with the medications we prescribe. I informed her and her that I'm concerned she has CHF from post- cardiomyopathy but that remains to be confirmed by ECHO and cardiology consultation. I'm also concerned about wound infection and/or systemic respiratory infection. Therefore, for the safety of her baby, I advised them to continue breast pumping, but to dispose of the current breast milk for now. Hopefully, in the next few days, she can safely breast feed her baby. Past Med Surg Social Fam HX - Past Medical History Attestation: Yes The following information was validated with the patient. Source: patient, old records reviewed Medical history: asthma Psychiatric history: anxiety, depression - Past Surgical History Surgical History: (5 days ago) - Social History Smoking Status: Never smoker Smokeless Tobacco Status: No Alcohol use: none Drug use: none Current living situation: Home, With Family Activity Level: Independent ambulation - Family History Father Living Status: Still Living Hx Family Cardiac Disorders: Yes (no CHF) Mother Hx Family Cardiac Disorders: No (no CHF) Internal Medicine - H&P: Meds Vit/Iron Fumarate/FA [ Tablet] 1 tab PO DAILY 08/26/17 [History ] Ibuprofen [Motrin] 600 mg PO Q6HR PRN #60 tablet 08/28/17 [Rx] OxyCODONE/APAP 5/325 [Percocet 5/325 MG] 1 each PO Q6HR PRN #20 tablet 08/28/17 [Rx] Albuterol Sulfate [Proair Hfa] 2 puff IH Q4H PRN 08/31/17 [History] 3 Allergy/AdvReac Type Severity Reaction Status Date / Time Amoxicillin [From Augmentin] Allergy Diarrhea Verified 08/31/17 14:46 clavulanic acid Allergy Diarrhea Verified 08/31/17 14:46 [From Augmentin] latex Allergy Rash Verified 08/31/17 14:46 all cillins Allergy Rash Uncoded 12/04/15 07:52 - Constitutional Constitutional: chills, fever(s), no night sweats - EENT Eyes: no blurry vision, no change in vision Ears: no ear pain, no tinnitus Nose, mouth and throat: nasal congestion, post-nasal drip, no sinus pressure, no sore throat - Cardiovascular Cardiovascular ROS IM: chest pain, dyspnea, dyspnea on exertion, edema, orthopnea, paroxysmal nocturnal dyspnea, no diaphoresis, no lightheadedness, no syncope - Respiratory Respiratory: cough, dyspnea, chest congestion, no hemoptysis, no excessive phlegm production, no change in phlegm color - Gastrointestinal Gastrointestinal: no abdominal pain, no dyspepsia, no hematemesis, no hematochezia, no melena, no vomiting - Genitourinary Genitourinary: no dysuria, no flank pain, no hematuria - Musculoskeletal Musculoskeletal ROS IM: no arthralgias, no back pain - Integumentary Integumentary IM: no rash, no jaundice Additional comments: wound vac in place on wound -- notes some purulent discharge - Neurological Neurological ROS: no confusion, no focal weakness, no frequent falls, no headache(s) - Psychiatric Psychiatric: no anxiety, no depression - Endocrine Endocrine IM: no polydipsia, no polyuria - Hematologic/Lymphatic Hematologic/Lymphatic: no easy bruising, no lymphadenopathy - Allergic/Immunologic Allergic/Immunologic: no GI upset with certain foods - Constitutional Vitals: Temp Pulse Resp BP Pulse Ox 98 F 102 22 120/75 99 08/31/17 19:00 08/31/17 19:00 08/31/17 19:00 08/31/17 19:00 08/31/17 19:00 General appearance: Present: cooperative, A&O X 3, morbidly obese, pleasant, no acute distress, answers questions appropriately - Head Head exam: Present: atraumatic, normal inspection - Eye Eye exam: Present: EOMI, normal appearance, PERRL. Absent: scleral icterus Pupils: Present: normal accommodation - ENT ENT exam: Present: mucous membranes moist, normal exam, normal oropharynx - Neck Neck exam general surgery: Present: full ROM, supple. Absent: lymphadenopathy, tenderness, nuchal rigidity, thyromegaly - Expanded Neck Exam Neck exam: Present: carotid bruit - Respiratory Respiratory exam: Present: accessory muscle use (mild), decreased breath sounds (both bases), rales, respiratory distress (mild ), rhonchi. Absent: chest wall tenderness, CTAB, prolonged expiratory phase, wheezes - Cardiovascular Cardiovascular exam: Present: distant heart sounds, RRR, +S1, +S2, tachycardia ( HR 102). Absent: diastolic murmur, JVD, systolic murmur - GI/Abdominal GI/Abdominal exam: Present: normal bowel sounds, soft, no peritoneal signs. Absent: guarding, hepatomegaly, rebound, splenomegaly, tenderness Additional comments: unable to visualize/inspect wound - Extremities Exam Extremities exam: Present: normal capillary refill, pedal edema (2+ ), warm, radial pulses palpable and symmetrical. Absent: calf tenderness, tenderness - Back Exam Back exam: Absent: CVA tenderness (L), CVA tenderness (R) - Neurological Exam Neurological exam: Present: alert, CN II-XII intact, oriented X3, no focal deficits - Psychiatric Psychiatric exam: Present: normal affect, normal mood - Skin Skin exam: Present: dry, warm. Absent: rash Internal Med - H&P Results - Labs CBC & Chem 7: 08/31/17 14:55 08/31/17 14:55 - EKG Data -: EKG Interpreted by Myself EKG shows normal: sinus rhythm Rate: tachycardia - EKG Data Prior EKG available for review: yes EKG comments: 08/31/17 21:14 Sinus tachycardia; otherwise no acute changes - Diagnostic Studies CT scan - chest Status: image reviewed by me (No PE; pulmonary edema)
--- NOTE | 2017-08-31 20:59 | OB/GYN Consult Note ---
Date of Encounter: 09/01/17 Time of Encounter: 20:35 Assessment and Plan (1) Wound infection following section, Current Visit: Yes Status: Acute Abdominal incision site dressed and dry. No visible signs of drainage, bleeding , or pus from dressing. Patient is afebrile. WBC count within normal range. Borderline tachycardia (HR 102). - On IV Vancomycin, Levaquin, and Flagyl. - Blood cultures pending. (2) Chest pain Current Visit: Yes Status: Acute Atypical chest pain symptoms. EKG in ER showed sinus tachy with no acute ST elevation or depression. Chest CTA shows no signs of pulmonary embolus. - Suspected cardiomyopathy. Cardiology consulted for assistance. - Per primary manage team, patient will be on a low dose beta saleem, IV lasix , and fluid restrictions. - Troponins will be trended and planned echo tomorrow. Qualifiers: Chest pain type: unspecified Qualified Code(s): R07.9 - Chest pain, unspecified (3) Elevated troponin level Current Visit: Yes Status: Acute History of Present Illness Consult date: 08/31/17 Requesting physician: Glen Morales Reason for consult: other (Post- wound assessment) Chief complaint: Abdominal pain/shortness of breath/chest pain History of present illness: Patient is a 27 YO female with a PMH of a congenital heart disease that presented 37 2/7 weeks gestation on 08/26/17 for labor and delivery. She had an emergent done that day due to bradycardia. She is currently POD# 5. Patient presented today to the ER complaining of incisional abdominal pain that started yesterday. She is also complaining of SOB which started yesterday evening. She states that it occurs while at laying down, sitting, or walking. She is also complaining of chest pain that started this morning. She describes it being located on her L side, constant, pressure like with radiation to left arm along with numbness/tingling. She rates it as a 3/10 in pain scale and says that she was able to sleep through the pain a few times throughout the day. She was given ASA in the ER, which she says helped with the pain. She admits to nausea earlier today while sitting up, but denies any vomiting. She admits to palpitations, OLGUIN, and vision blurriness. She still has some vaginal bleeding, but it has been light. She admits to some dysuria, but she denies any fever. Denies diarrhea. Chest CTA done in the ER showed no signs of PE, but did show bilateral pleural effusions. Pelvic CT showed post-surgical changes in the anterior lower abdominal wall and pelvis. She had an elevated troponin of 0.24 in the ER. She was started on Lasix due to being fluid overloaded. She was also started on vancomycin, levaquin, and flagyl in the ER. Past Med Surg Social Fam HX - Past Medical History Medical history: asthma, other Psychiatric history: anxiety, depression - Social History Smoking Status: Never smoker Smokeless Tobacco Status: No Alcohol use: none Drug use: none - Family History Father Living Status: Still Living Hx Family Cardiac Disorders: Yes Mother Adopted: No Twin of Family Member: Yes, Identical Living Status: Age at : 37 Cause of : spinal meningitis Hx Family Cardiac Disorders: Yes (grandfather) Hx Family Respiratory Disorders: Yes (copd grandmother) Hx Family Cancer: Yes (aunts, breast cancer) Hx Family GI Disorders: No Hx Family Genitourinary Disorders: No Hx Family Endocrine Disorder: No Hx Family Musculoskeletal Disorders: No Hx Family Neuromuscular Disorders: No Hx Family Neurologic Disorders: No Hx Family HEENT Disorders: No Hx Family Autoimmune Disorders: No Hx Family Reproductive Disorders: No Hx Family Psychosocial Disorders: No Hx Family Medical Disorders: No Medications and Allergies Vit/Iron Fumarate/FA [ Tablet] 1 tab PO DAILY 08/26/17 [History ] Ibuprofen [Motrin] 600 mg PO Q6HR PRN #60 tablet 08/28/17 [Rx] OxyCODONE/APAP 5/325 [Percocet 5/325 MG] 1 each PO Q6HR PRN #20 tablet 08/28/17 [Rx] Albuterol Sulfate [Proair Hfa] 2 puff IH Q4H PRN 08/31/17 [History] 3 Allergy/AdvReac Type Severity Reaction Status Date / Time Amoxicillin [From Augmentin] Allergy Diarrhea Verified 08/31/17 14:46 clavulanic acid Allergy Diarrhea Verified 08/31/17 14:46 [From Augmentin] latex Allergy Rash Verified 08/31/17 14:46 all cillins Allergy Rash Uncoded 12/04/15 07:52 Exam - Vital Signs Vital signs: Initial Vital Signs Temp Pulse Resp BP Pulse Ox 98.4 F 136 22 95/57 95 08/31/17 14:41 08/31/17 14:41 08/31/17 14:41 08/31/17 14:41 08/31/17 14:41 - Constitutional Constitutional: well developed, well nourished, obese - Lungs Respiratory exam: CTAB - Cardiovascular Cardiovascular exam: RRR, +S1, +S2 - Abdomen Abdomen: Present: bowel sounds normal, diffuse tenderness (Moderate tenderness with light palpation. ). Absent: guarding noted - Extremities Extremities exam: normal capillary refill, pedal edema (+1 B/L pitting edema ), tenderness (B/L lower extremity tenderness. R worse than L. ), radial pulses palpable and symmetrical - Comments Comments: Abdomen: Abdominal incision site was dressed and dry. No signs of drainage or bleeding from dressing. Results Result Diagrams: 09/01/17 04:22 09/01/17 04:22 Abnormal lab results RBC 3.69 M/mcL (3.82-4.97) L 08/31/17 14:55 Hct 33.9 % (35.3-44.9) L 08/31/17 14:55 PT 12.4 Seconds (9.4-12.1) H 08/31/17 14:55 APTT 21.1 Seconds (26.0-36.0) L 08/31/17 14:55 VBG pCO2 39 mmHg (41-51) L 08/31/17 15:54 VBG pO2 64 mmHg (25-50) H 08/31/17 15:54 Calcium 8.1 mg/dL (8.6-10.8) L 08/31/17 14:55 Troponin I 0.24 ng/mL (0-0.03) H* 08/31/17 14:55 B-Natriuretic Peptide 157 pg/mL (0-100) H 08/31/17 14:55 Serum Total Protein 5.8 g/dL (6.0-8.3) L 08/31/17 14:55 Albumin 2.6 g/dL (3.5-5.0) L 08/31/17 14:55 Albumin/Globulin Ratio 0.8 (1.1-2.2) L 08/31/17 14:55 Ur Specific [place] > 1.030 (1.010-1.025) H 08/31/17 15:15 Urine Protein 100 mg/dL (Neg-Trace) H 08/31/17 15:15 Urine Ketones 80 mg/dL (Negative) H 08/31/17 15:15 Urine Bilirubin Small (Negative) H 08/31/17 15:15 Urine Microscopic RBC 3-5 per hpf (0-3) H 08/31/17 15:15 Urine Microscopic WBC 5-15 per hpf (0-3) H 08/31/17 15:15 Ur Squamous Epith Cells Many per lpf (None-Few) H 08/31/17 15:15 Urine Mucus Many (Few) H 08/31/17 15:15 All other labs normal. Consult Discharge Plan - Plan Referrals: [facility] – [place],José Antonio Quiroz MD [Primary Care Provider] - - Attending Attestation I examined this patient and my medical decision-making was reviewed with the Resident Physician. I agree with the documented findings, disposition and treatment plan as described except to the extent set forth below. Gabriele Puckett DO
[2017-08-31] MEDS: *HR* OxyCODONE/APAP 5/325 TABLET PO PRN (22:32)
[2017-08-31] MEDS: *HR* Heparin 5,000 UNIT/ML VIAL SQ SCH (22:33)
[2017-08-31] MEDS: MetroNIDAZOLE 500 MG/100 ML 500 MG/100 ML BAG IVPB SCH (22:35)
[2017-08-31] MEDS: Vancomycin 1,750 MG in D5% in Water 500 ML IVPB SCH (22:35)
[2017-09-01 05:00] LABS: Basophils % 0.1 %; Eosinophils % 0.4 %; Hematocrit 31.6 % (35.3-44.9); Hemoglobin 10.7 g/dL (11.5-15.4); Immature Granulocytes % 0.7 % (0-4); Lymphocytes % 10.5 %; Mean Corpuscular HGB Conc 33.9 g/dL (31.6-35.5); Mean Corpuscular Hemoglobin 31.8 pg (28.0-33.3); Mean Platelet Volume 10.9 fL (9.4-12.4); Monocytes # 0.7 K/mcL (0.0-1.3); Monocytes % 7.4 %; Nucleated Red Blood Cells 0.2 /100 WBC (0); Platelet Count 207 K/mcL (140-400); Red Blood Count 3.36 M/mcL (3.82-4.97); Red Cell Distribution Width 12.9 % (11.5-14.5); Segmented Neutrophils % 80.9 %
[2017-09-01 05:07] LABS: INR 1.3; Prothrombin Time 14.6 Seconds (9.4-12.1)
[2017-09-01 05:10] LABS: Activated Partial Thrombo Time 26.3 Seconds (26.0-36.0)
[2017-09-01] MEDS: *HR* OxyCODONE/APAP 5/325 TABLET PO PRN ×3 (05:11→22:02)
[2017-09-01] MEDS: *HR* Heparin 5,000 UNIT/ML VIAL SQ SCH ×3 (05:12→21:24)
[2017-09-01] MEDS: MetroNIDAZOLE 500 MG/100 ML 500 MG/100 ML BAG IVPB SCH ×3 (05:12→21:22)
[2017-09-01 05:20] LABS: Alanine Aminotransferase 17 Units/L (0-55); Albumin/Globulin Ratio 0.5 (1.1-2.2); Alkaline Phosphatase 99 Units/L (38-126); Aspartate Amino Transferase 16 Units/L (5-34); BUN/Creatinine Ratio 17 (6-26); Bilirubin,Total 0.5 mg/dL (0.2-1.2); Blood Urea Nitrogen 12 mg/dL (7-20); Carbon Dioxide 22 mEq/L (19-29); Chloride 107 mEq/L (98-109); Chol/HDL Ratio 5.7 (0-4.9); Cholesterol 195 mg/dL (< 200); Globulin 3.7 g/dL (2.4-3.5); Glucose 101 mg/dL (70-99); HDL Cholesterol 34 mg/dL (40-59); LDL Cholesterol,Calculated 128 mg/dL (0-99); Magnesium 1.4 mg/dL (1.6-2.6); Osmolality,Calculated 290 (280-300); Potassium 3.6 mEq/L (3.5-4.5); Sodium 140 mEq/L (136-145); Total Protein 5.7 g/dL (6.0-8.3); Triglycerides 167 mg/dL (< 150); eGFR For African Americans > 60 (> 60); eGFR For Non-African Americans > 60 (> 60)
[2017-09-01] MEDS: Aspirin 81 MG TAB.CHEW PO SCH (09:36)
[2017-09-01] MEDS: Furosemide 40 MG/4 ML VIAL IVP SCH ×2 (09:37→16:15)
[2017-09-01] MEDS: Vancomycin 1,750 MG in D5% in Water 500 ML IVPB SCH ×2 (09:39→21:23)
--- NOTE | 2017-09-01 09:40 | Cardiology Consult Note ---
Date of Encounter: 09/01/17 Time of Encounter: 09:33 Assessment and Plan (1) Pulmonary edema Current Visit: Yes Status: Acute Possible mild pulmonary edema seen on CT. Also c/o SOB, orthopnea, and BLE edema since 08/26/17. Concern for possible induced CMP. TTE pending. TTE 06/2017- EF 60-65%, mild IA. Agree with IV lasix. Low sodium diet. Strict I&O and daily weight. Qualifiers: Qualified Code(s): J81.0 - Acute pulmonary edema (2) Elevated troponin I level Current Visit: Yes Status: Acute Mild troponin elevation in the setting of pulmonary edema. Likely demand ischemia. Check TTE. EKG with no acute ST changes. Further recommendation to follow. Discussion w patient/family: The assessment and plan as outlined above was discussed with the patient and/or family members who expressed understanding and agreement. All questions were answered. Thank you for involving us in the care of your patient. Please call with any questions. History of Present Illness Consult date: 09/01/17 Requesting physician: Glen Morales Consult reason: Possible new cardiomyopathy Chief complaint: SOB, BLE edema. History of present illness: Ms. Payne is a 27 year old female with a history of recent and c- section on 08/26/17, HTN during , gestational diabetes, and congenital heart defect who presented with incisional pain, increasing SOB, fever and chills over the past 4 days. She c/o BLE edema up to her thighs and orthopnea. Admits to mild chest tightness. Admits to non-productive cough. She is diagnosed with incisional wound infection. Cardiology consulted for concern for induced CMP. She reports history of heart murmur since she was a child and she has yearly echocardiogram. She previously saw [facility] to establish for h/o congenital heart defect, possible VSD repair as an . 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 TTE completed in June 2017 showed EF 60-65%, mild pulmonic regurgitation, no PFO. Past Med Surg Social Fam HX - Past Medical History Medical history: asthma, hypertension, other (congenital heart defect) Psychiatric history: anxiety, depression - Past Surgical History Surgical History: (5 days ago) - Social History Smoking Status: Never smoker Smokeless Tobacco Status: No Alcohol use: none Drug use: none - Family History Father Living Status: Still Living Hx Family Cardiac Disorders: Yes Mother Adopted: No Twin of Family Member: Yes, Identical Living Status: Age at : 37 Cause of : spinal meningitis Hx Family Cardiac Disorders: Yes (grandfather) Hx Family Respiratory Disorders: Yes (copd grandmother) Hx Family Cancer: Yes (aunts, breast cancer) Hx Family GI Disorders: No Hx Family Genitourinary Disorders: No Hx Family Endocrine Disorder: No Hx Family Musculoskeletal Disorders: No Hx Family Neuromuscular Disorders: No Hx Family Neurologic Disorders: No Hx Family HEENT Disorders: No Hx Family Autoimmune Disorders: No Hx Family Reproductive Disorders: No Hx Family Psychosocial Disorders: No Hx Family Medical Disorders: No Medications and Allergies Vit/Iron Fumarate/FA [ Tablet] 1 tab PO DAILY 08/26/17 [History ] Ibuprofen [Motrin] 600 mg PO Q6HR PRN #60 tablet 08/28/17 [Rx] OxyCODONE/APAP 5/325 [Percocet 5/325 MG] 1 each PO Q6HR PRN #20 tablet 08/28/17 [Rx] Albuterol Sulfate [Proair Hfa] 2 puff IH Q4H PRN 08/31/17 [History] 3 Allergy/AdvReac Type Severity Reaction Status Date / Time Amoxicillin [From Augmentin] Allergy Diarrhea Verified 08/31/17 14:46 clavulanic acid Allergy Diarrhea Verified 08/31/17 14:46 [From Augmentin] latex Allergy Rash Verified 08/31/17 14:46 all cillins Allergy Rash Uncoded 12/04/15 07:52 All Systems Review: A 10-system review of systems was performed and is negative for pertinent findings except as documented above in the HPI. Physical Examination Vital Signs, Last 4 Hours Temp Pulse Resp BP Pulse Ox 09/01/17 07:00 98.1 F 126 16 129/75 98 09/01/17 05:46 98.8 F 119 22 125/81 95 General: Conversant, No Apparent Distress HEENT: Atraumatic, Normocephaly, Mucus Membranes Moist Neck: No JVD, Normal carotid pulses Cardiac: Reg Rate and Rhythm, Normal S1 and S2, No Murmur Lungs: Normal Breath Sounds, No Wheeze, Rales, Rhonchi, Other (Respirations labored) Neuro: Alert and responsive, No focal deficits noted Abdomen: Soft, Non-Tender Skin: No rashes noted on visualized skin Musculoskeletal: No Chest Wall Tenderness Extremities: No Clubbing, No Cyanosis, Normal Pulses, Other (!= BLE up to her knees) Results 09/01/17 04:22 09/01/17 04:22 Lab Results 08/31/17 09/01/17 09/01/17 21:49 04:22 04:22 WBC 9.9 Hgb 10.7 L Hct 31.6 L Plt Count 207 INR APTT Sodium Potassium Chloride Carbon Dioxide BUN Creatinine Glucose Calcium Magnesium Total Bilirubin AST ALT Alkaline Phosphatase Troponin I 0.17 H* 0.13 H* TSH 09/01/17 09/01/17 09/01/17 04:22 04:22 04:22 WBC Hgb Hct Plt Count INR 1.3 APTT 26.3 Sodium 140 Potassium 3.6 Chloride 107 Carbon Dioxide 22 BUN 12 Creatinine 0.71 Glucose 101 H Calcium 8.0 L Magnesium 1.4 L Total Bilirubin 0.5 AST 16 ALT 17 Alkaline Phosphatase 99 Troponin I TSH 0.607 - Imaging and Cardiology Echo: report reviewed - EKG Interpretation EKG results cardiology: personally reviewed (sinus tachycardia) Consult Discharge Plan - Plan Referrals: José Antonio Palacios MD [Primary Care Provider] -
--- NOTE | 2017-09-01 09:45 | OB/GYN Consult Note ---
Date of Encounter: 09/01/17 Time of Encounter: 09:42 Assessment and Plan (1) Wound infection following section, Current Visit: Yes Status: Acute Abdominal incision site dressed and dry, CANDICE drain in place. No visible signs of drainage, erythema, induration, or crepitance. -No leukocytosis, Tachycardia resolved. -Day 2 of IV Vanc, flagyl, and levquin. -FU blood cultures (2) Chest pain Current Visit: Yes Status: Acute Follow cardiology recommendations and primary team management. -suspected cardiomyopathy with resultant troponin leak. -Per primary team, continue treatment with beta saleem, IV lasix, and fluid restrictions. -FU echo scheduled for today. Qualifiers: Chest pain type: unspecified Qualified Code(s): R07.9 - Chest pain, unspecified History of Present Illness Consult date: 09/01/17 Requesting physician: Glen Morales Reason for consult: other (Post- wound assessment) Chief complaint: Abdominal Pain/SOB/CP History of present illness: Ms. Payne is a 27 yo female POD#6 section. Ms. Payne presented to labor and delivery at 37 2/7 weeks gestation on 08-26-2017 for labor and delivery. Patient received an emergent for bradycardia. Patient presented with abdominal pain around her incision in addition to dull , radiating chest pain as well as shortness of breath and bilateral pedal edema. Patient has a history of congenital heart disease and surgical repair as an . Patient was admitted to medicine after being found to have positive troponins. Her abdominopelvic CT scan showed abdominal changes consisent with recent surgery. She was found to have bilateral pleural effusions. A CTA of her chest was negative for PE. OBGYN was consulted for management of potential c- section wound. Broad spectrum antibiotics were ordered after obtaining blood cultures. Past Med Surg Social Fam HX - Past Medical History Medical history: asthma, other (congenital heart disease as an infant) Psychiatric history: anxiety, depression - Past Surgical History Surgical History: (5 days ago) - Social History Smoking Status: Never smoker Smokeless Tobacco Status: No Alcohol use: none Drug use: none - Family History Father Living Status: Still Living Hx Family Cardiac Disorders: Yes Mother Adopted: No Twin of Family Member: Yes, Identical Living Status: Age at : 37 Cause of : spinal meningitis Hx Family Cardiac Disorders: Yes (grandfather) Hx Family Respiratory Disorders: Yes (copd grandmother) Hx Family Cancer: Yes (aunts, breast cancer) Hx Family GI Disorders: No Hx Family Genitourinary Disorders: No Hx Family Endocrine Disorder: No Hx Family Musculoskeletal Disorders: No Hx Family Neuromuscular Disorders: No Hx Family Neurologic Disorders: No Hx Family HEENT Disorders: No Hx Family Autoimmune Disorders: No Hx Family Reproductive Disorders: No Hx Family Psychosocial Disorders: No Hx Family Medical Disorders: No Medications and Allergies Vit/Iron Fumarate/FA [ Tablet] 1 tab PO DAILY 08/26/17 [History ] Ibuprofen [Motrin] 600 mg PO Q6HR PRN #60 tablet 08/28/17 [Rx] OxyCODONE/APAP 5/325 [Percocet 5/325 MG] 1 each PO Q6HR PRN #20 tablet 08/28/17 [Rx] Albuterol Sulfate [Proair Hfa] 2 puff IH Q4H PRN 08/31/17 [History] 3 Allergy/AdvReac Type Severity Reaction Status Date / Time Amoxicillin [From Augmentin] Allergy Diarrhea Verified 08/31/17 14:46 clavulanic acid Allergy Diarrhea Verified 08/31/17 14:46 [From Augmentin] latex Allergy Rash Verified 08/31/17 14:46 all cillins Allergy Rash Uncoded 12/04/15 07:52 Review of Systems All Systems: reviewed and no additional remarkable complaints except as stated Constitutional: chills, fever(s), no headache(s) Nose, mouth and throat: as per HPI Cardiovascular: as per HPI, dyspnea, leg edema (bilateral 1+), no chest pain, no palpitations Respiratory: as per HPI, dyspnea, no cough, no wheezing, no stridor, no chest congestion, no excessive phlegm production Gastrointestinal: abdominal pain (surrounding the area of surgical incision), no change in bowel habits Genitourinary Female: as per HPI Musculoskeletal: as per HPI Exam - Vital Signs Vital signs: Initial Vital Signs Temp Pulse Resp BP Pulse Ox 98.4 F 136 22 95/57 95 08/31/17 14:41 08/31/17 14:41 08/31/17 14:41 08/31/17 14:41 08/31/17 14:41 - Constitutional Constitutional: well developed, no acute distress, obese - HEENT HEENT: Mucus Membranes Moist - Lungs Respiratory exam: CTAB - Cardiovascular Cardiovascular exam: +S1, +S2, +S4 - Abdomen Abdomen: Present: bowel sounds normal (with mild TTP surrounding surgical incision. No erythema, induration, crepitance, or streaking noted around CANDICE drain.) - Extremities Extremities exam: normal capillary refill, pedal edema (1+ bilaterally), radial pulses palpable and symmetrical - Comments Comments: PICOT dressing remains in place over incision without redness and drainage Results Result Diagrams: 09/01/17 04:22 09/01/17 04:22 Abnormal lab results RBC 3.36 M/mcL (3.82-4.97) L 09/01/17 04:22 Hgb 10.7 g/dL (11.5-15.4) L 09/01/17 04:22 Hct 31.6 % (35.3-44.9) L 09/01/17 04:22 Nucleated RBCs/100 WBC 0.2 /100 WBC (0) H 09/01/17 04:22 PT 14.6 Seconds (9.4-12.1) H 09/01/17 04:22 VBG pCO2 39 mmHg (41-51) L 08/31/17 15:54 VBG pO2 64 mmHg (25-50) H 08/31/17 15:54 Glucose 101 mg/dL (70-99) H 09/01/17 04:22 Calcium 8.0 mg/dL (8.6-10.8) L 09/01/17 04:22 Magnesium 1.4 mg/dL (1.6-2.6) L 09/01/17 04:22 Troponin I 0.13 ng/mL (0-0.03) H* 09/01/17 04:22 B-Natriuretic Peptide 157 pg/mL (0-100) H 08/31/17 14:55 Serum Total Protein 5.7 g/dL (6.0-8.3) L 09/01/17 04:22 Albumin 2.0 g/dL (3.5-5.0) L D 09/01/17 04:22 Globulin 3.7 g/dL (2.4-3.5) H 09/01/17 04:22 Albumin/Globulin Ratio 0.5 (1.1-2.2) L 09/01/17 04:22 Triglycerides 167 mg/dL (< 150) H 09/01/17 04:22 LDL Cholesterol, Calc 128 mg/dL (0-99) H 09/01/17 04:22 VLDL Cholesterol, Calc 33 mg/dL (< 31) H 09/01/17 04:22 HDL Cholesterol 34 mg/dL (40-59) L 09/01/17 04:22 Cholesterol/HDL Ratio 5.7 (0-4.9) H 09/01/17 04:22 Ur Specific [place] > 1.030 (1.010-1.025) H 08/31/17 15:15 Urine Protein 100 mg/dL (Neg-Trace) H 08/31/17 15:15 Urine Ketones 80 mg/dL (Negative) H 08/31/17 15:15 Urine Bilirubin Small (Negative) H 08/31/17 15:15 Urine Microscopic RBC 3-5 per hpf (0-3) H 08/31/17 15:15 Urine Microscopic WBC 5-15 per hpf (0-3) H 08/31/17 15:15 Ur Squamous Epith Cells Many per lpf (None-Few) H 08/31/17 15:15 Urine Mucus Many (Few) H 08/31/17 15:15 All other labs normal. Consult Discharge Plan - Plan Referrals: José Antonio Palacios MD [Primary Care Provider] -
--- NOTE | 2017-09-01 11:39 | Internal Med Progress Note ---
<Feroz Iraheta - Last Filed: 09/01/17 13:51> Date of Encounter: 09/01/17 Time of Encounter: 08:45 - Assessment and plan (1) cardiomyopathy Current Visit: Yes Status: Suspected Assessment and plan: Patient had 6 days ago and had been developing shortness of breath with walking, orthopnea, and chest heaviness over the couple days prior to presentation to the hospital. Patient reports she has history of stress- induced cardiomyopathy and also has an unknown congenital heart defect. Concerned that the degree patient anemia, Rales, pulmonary edema seen on chest x -ray, and orthopnea patient has cardiomyopathy. Patient has had consistent tachycardia since admission, concerned this is not necessarily related entirely to cardiomyopathy Could possibly represent compensatory mechanism for infection. Will treat infection as below. We will continue to monitor closely Echo has been ordered wafer results and reassess Cardiology consult appreciated recommendations for continuing management/care PHARMACY OPERATIONS COORDINATOR has been consulted and appreciate recommendations for daily management/ care Continue IV Lasix Continue to monitor electrolytes daily labs (2) Wound infection following section, Current Visit: Yes Status: Acute Assessment and plan: Patient had 6 days ago. Patient noted burning sensation as well as purulent drainage around sites of wound VAC today prior to presentation to the hospital. Patient started on Vancomycin, Flagyl, and Levaquin at admission. PHARMACY OPERATIONS COORDINATOR consulted and appreciate recommendations Continue empiric antibiotics for now, plan to de-escalate in future if improvement in patient's status seen Concern for elevated heart rate represents reaction to infection, will refer results of echocardiogram and reassess (3) Breast feeding status of mother Current Visit: No Status: Acute Assessment and plan: Patient currently breast-feeding but to "pump and dump" her milk at the time of admission. This was due to concern of the various medications that she will be receiving while inpatient as well as until further assessment of her heart. Recommend continued pumping of breastmilk, but not feeding it to her (4) Asthma Current Visit: Yes Status: Chronic Assessment and plan: Currently stable Continue home albuterol Qualifiers: Asthma severity: mild Asthma persistence: intermittent Asthma complication type: uncomplicated Qualified Code(s): J45.20 - Mild intermittent asthma, uncomplicated (5) DVT prophylaxis Current Visit: Yes Status: Acute Assessment and plan: 5000 units heparin subcutaneous 3 times a day - Subjective Interval history: Patient reports she is continuing to have orthopnea and chest heaviness, but is not have any concerns/complaints while sitting. She denies fever/chills and nausea/vomiting. She reports having continued pain around the site of her C- section and currently has negative pressure dressing placed. - Constitutional Vitals: Temp Pulse Resp BP Pulse Ox 98.1 F 126 16 129/75 98 09/01/17 07:00 09/01/17 07:00 09/01/17 07:00 09/01/17 07:00 09/01/17 07:00 General appearance: Present: cooperative, A&O X 3, morbidly obese, pleasant, no acute distress, answers questions appropriately Exam: General: Cooperative, pleasant, no acute distress, alert and oriented 3, answers questions appropriately HEENT: Normocephalic, atraumatic, Conjunctiva pink, sclera anicteric, oral mucosa moist, no orophargeal erythema or exudates Respiratory: No accessory muscle usage, slight bibasilar rales on auscultation Cardiovascular: Tachycardia, S1 and S2 present, no murmurs/rubs/gallops/clicks appreciated GI/abdominal: Nondistended, tenderness in lower abdomen around site of C- section dressing, soft, normal bowel sounds, no peritoneal signs Extremities: No calf tenderness, noncyanotic, 1-2+ pedal edema up to the knee, warm, lower extremity pulses palpable and symmetrical Neurological: Alert and oriented 3, no facial droop, no focal deficits Skin: Dry, intact, normal color Internal Medicine: Result - Labs CBC & Chem 7: 09/01/17 04:22 09/01/17 04:22 Labs: Short CBC 09/01/17 Range/Units 04:22 WBC 9.9 (4.3-11.1) K/mcL Hgb 10.7 L (11.5-15.4) g/dL Hct 31.6 L (35.3-44.9) % Plt Count 207 (140-400) K/mcL Neutrophils # 8.0 (1.6-8.9) K/mcL BMP 09/01/17 04:22 Sodium 140 Potassium 3.6 Chloride 107 Carbon Dioxide 22 BUN 12 Creatinine 0.71 Glucose 101 H Calcium 8.0 L Cardiac Enzymes 08/31/17 09/01/17 Range/Units 21:49 04:22 Troponin I 0.17 H* 0.13 H* (0-0.03) ng/mL Liver Function 09/01/17 Range/Units 04:22 Total Bilirubin 0.5 (0.2-1.2) mg/dL AST 16 (5-34) Units/L ALT 17 (0-55) Units/L Alkaline Phosphatase 99 (38-126) Units/L Albumin 2.0 L D (3.5-5.0) g/dL - ABG Interpretation ABG results: PT/INR, D-dimer PT 14.6 Seconds (9.4-12.1) H 09/01/17 04:22 Consult Discharge Plan - Plan [facility]: [facility] [place] [Primary Care Provider] - <Cam Valles - Last Filed: 09/01/17 18:25> Date of Encounter: 09/01/17 - Assessment and plan (1) Sepsis Current Visit: Yes Status: Acute Assessment and plan: Pt remains tachycardic. Cultures negative thus far. Ultrasound ordered. Qualifiers: Sepsis type: sepsis due to unspecified organism Qualified Code(s): A41.9 - Sepsis, unspecified organism (2) cardiomyopathy Current Visit: Yes Status: Suspected (3) Morbid obesity with BMI of 40.0-44.9, adult Current Visit: Yes Status: Chronic - Constitutional Vitals: Temp Pulse Resp BP Pulse Ox 98.1 F 106 15 141/80 96 09/01/17 07:00 09/01/17 15:00 09/01/17 15:00 09/01/17 15:00 09/01/17 15:00 Internal Medicine: Result - Labs CBC & Chem 7: 09/01/17 04:22 09/01/17 04:22 Labs: Short CBC 09/01/17 Range/Units 04:22 WBC 9.9 (4.3-11.1) K/mcL Hgb 10.7 L (11.5-15.4) g/dL Hct 31.6 L (35.3-44.9) % Plt Count 207 (140-400) K/mcL Neutrophils # 8.0 (1.6-8.9) K/mcL BMP 09/01/17 04:22 Sodium 140 Potassium 3.6 Chloride 107 Carbon Dioxide 22 BUN 12 Creatinine 0.71 Glucose 101 H Calcium 8.0 L Cardiac Enzymes 08/31/17 09/01/17 Range/Units 21:49 04:22 Troponin I 0.17 H* 0.13 H* (0-0.03) ng/mL Liver Function 09/01/17 Range/Units 04:22 Total Bilirubin 0.5 (0.2-1.2) mg/dL AST 16 (5-34) Units/L ALT 17 (0-55) Units/L Alkaline Phosphatase 99 (38-126) Units/L Albumin 2.0 L D (3.5-5.0) g/dL - ABG Interpretation ABG results: PT/INR, D-dimer PT 14.6 Seconds (9.4-12.1) H 09/01/17 04:22 - Impressions Impressions Echocardiogram 09/01/17 13:00 Impressions: LVEF 60-65%. Sinus tachycardia. Normal left ventricular diastolic function. RV is not well evaluated. No significant valvular dysfunction. No pulmonary hypertension. Left Ventricular Wall Motion: Rest Echo Findings All wall segments showed normal motion. Findings: Study Quality * Technically somewhat challenging exam - angulated views. ECG Findings * Sinus tachycardia. Left Ventricle * Normal left ventricular diastolic function. * LVEF 60-65%. * Normal LV size and wall thickness. Right Ventricle * RV is not well evaluated. Left Atrium * Normal left atrial size. Right Atrium * Normal right atrial size. Aortic Valve * No aortic regurgitation. * Trileaflet aortic valve. * No aortic stenosis. Mitral Valve * Normal mitral valve structure. * No mitral regurgitation. * No mitral stenosis. Tricuspid Valve * Tricuspid valve not well visualized. * Trace tricuspid regurgitation. Pulmonic Valve * Pulmonic valve is not well visualized. * No pulmonic stenosis. * No pulmonic regurgitation. Pulmonary Artery * Pulmonary artery not well visualized. Aorta * Normally sized aortic root. Pericardium * There is no pericardial effusion present. Interatrial Septum * Interatrial septum not well evaluated. IVC * The IVC is not well evaluated. - Attending Attestation I examined this patient and my medical decision-making was reviewed with the Resident Physician on 09/01/17. I agree with the documented findings, disposition and treatment plan as described except to the extent set forth below. Ms Payne is currently admitted for presumed acute cardiomyopathy. She remains high risk due to potential for worsening cardiac status. Ms Payne is having pain with the wound. Still with some dyspnea. No fever or chills. No drainage. Still with edema Exam Alert. Mod distress due to pain. Heart tachy and regular Lungs with some rales Abd soft - no drainage from wound Edema present I/P 1. Probable sepsis due to wound infection vs other - on IV abx. Check pelvic ultrasound tonight. Supportive care 2. Possible PPCM - echo with EF of 60% Hold Lasix Further diagnoses and plan as above.
[2017-09-01] MEDS: Prenatal Vit/FA 1 EACH TABLET PO SCH (11:51)
[2017-09-01] MEDS: Levofloxacin 750 MG/150 ML 750 MG/150 ML BAG IVPB SCH (16:16)
[2017-09-01] MEDS: Magnesium Oxide 400 MG TABLET PO SCH (16:17)
--- NOTE | 2017-09-01 16:42 | Electrocardiograph Report ---
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
[2017-09-01] MEDS ORDERED: *HR* Morphine 2 MG/ML SYRINGE IVP STA (16:55)
[2017-09-01] MEDS ORDERED: *HR* Morphine 2 MG/ML SYRINGE ONE (16:57)
--- NOTE | 2017-09-02 00:46 | OB/GYN Consult Note ---
Date of Encounter: 09/02/17 Time of Encounter: 00:35 Assessment and Plan (1) Wound infection following section, Current Visit: Yes Status: Acute PICOT dressing removed, periwound area with slight redness, firm and warm to touch. Scant amount of yellow drainage noted. Medicine managing IV ATB. Pelvic US shows Extremely limited pelvic ultrasound as outlined above. Question of small amount of fluid in the lower endometrial canal. Otherwise no significant abnormality. Pt states only needs to change peripad with each void. No clotting noted. (2) Chest pain Current Visit: Yes Status: Acute Qualifiers: Chest pain type: unspecified Qualified Code(s): R07.9 - Chest pain, unspecified Past Med Surg Social Fam HX - Past Medical History Medical history: asthma, other (congenital heart disease as an infant) Psychiatric history: anxiety, depression - Past Surgical History Surgical History: (5 days ago) - Social History Smoking Status: Never smoker Smokeless Tobacco Status: No Alcohol use: none Drug use: none - Family History Father Living Status: Still Living Hx Family Cardiac Disorders: Yes Mother Adopted: No Twin of Family Member: Yes, Identical Living Status: Age at : 37 Cause of : spinal meningitis Hx Family Cardiac Disorders: Yes (grandfather) Hx Family Respiratory Disorders: Yes (copd grandmother) Hx Family Cancer: Yes (aunts, breast cancer) Hx Family GI Disorders: No Hx Family Genitourinary Disorders: No Hx Family Endocrine Disorder: No Hx Family Musculoskeletal Disorders: No Hx Family Neuromuscular Disorders: No Hx Family Neurologic Disorders: No Hx Family HEENT Disorders: No Hx Family Autoimmune Disorders: No Hx Family Reproductive Disorders: No Hx Family Psychosocial Disorders: No Hx Family Medical Disorders: No Medications and Allergies Vit/Iron Fumarate/FA [ Tablet] 1 tab PO DAILY 08/26/17 [History ] Ibuprofen [Motrin] 600 mg PO Q6HR PRN #60 tablet 08/28/17 [Rx] OxyCODONE/APAP 5/325 [Percocet 5/325 MG] 1 each PO Q6HR PRN #20 tablet 08/28/17 [Rx] Albuterol Sulfate [Proair Hfa] 2 puff IH Q4H PRN 08/31/17 [History] 3 Allergy/AdvReac Type Severity Reaction Status Date / Time Amoxicillin [From Augmentin] Allergy Diarrhea Verified 08/31/17 14:46 clavulanic acid Allergy Diarrhea Verified 08/31/17 14:46 [From Augmentin] latex Allergy Rash Verified 08/31/17 14:46 all cillins Allergy Rash Uncoded 12/04/15 07:52 Exam - Vital Signs Vital signs: Initial Vital Signs Temp Pulse Resp BP Pulse Ox 98.4 F 136 22 95/57 95 08/31/17 14:41 08/31/17 14:41 08/31/17 14:41 08/31/17 14:41 08/31/17 14:41 Results Result Diagrams: 09/01/17 04:22 09/01/17 04:22 Abnormal lab results RBC 3.36 M/mcL (3.82-4.97) L 09/01/17 04:22 Hgb 10.7 g/dL (11.5-15.4) L 09/01/17 04:22 Hct 31.6 % (35.3-44.9) L 09/01/17 04:22 Nucleated RBCs/100 WBC 0.2 /100 WBC (0) H 09/01/17 04:22 PT 14.6 Seconds (9.4-12.1) H 09/01/17 04:22 VBG pCO2 39 mmHg (41-51) L 08/31/17 15:54 VBG pO2 64 mmHg (25-50) H 08/31/17 15:54 Glucose 101 mg/dL (70-99) H 09/01/17 04:22 Calcium 8.0 mg/dL (8.6-10.8) L 09/01/17 04:22 Magnesium 1.4 mg/dL (1.6-2.6) L 09/01/17 04:22 Troponin I 0.13 ng/mL (0-0.03) H* 09/01/17 04:22 B-Natriuretic Peptide 157 pg/mL (0-100) H 08/31/17 14:55 Serum Total Protein 5.7 g/dL (6.0-8.3) L 09/01/17 04:22 Albumin 2.0 g/dL (3.5-5.0) L D 09/01/17 04:22 Globulin 3.7 g/dL (2.4-3.5) H 09/01/17 04:22 Albumin/Globulin Ratio 0.5 (1.1-2.2) L 09/01/17 04:22 Triglycerides 167 mg/dL (< 150) H 09/01/17 04:22 LDL Cholesterol, Calc 128 mg/dL (0-99) H 09/01/17 04:22 VLDL Cholesterol, Calc 33 mg/dL (< 31) H 09/01/17 04:22 HDL Cholesterol 34 mg/dL (40-59) L 09/01/17 04:22 Cholesterol/HDL Ratio 5.7 (0-4.9) H 09/01/17 04:22 Ur Specific [place] > 1.030 (1.010-1.025) H 08/31/17 15:15 Urine Protein 100 mg/dL (Neg-Trace) H 08/31/17 15:15 Urine Ketones 80 mg/dL (Negative) H 08/31/17 15:15 Urine Bilirubin Small (Negative) H 08/31/17 15:15 Urine Microscopic RBC 3-5 per hpf (0-3) H 08/31/17 15:15 Urine Microscopic WBC 5-15 per hpf (0-3) H 08/31/17 15:15 Ur Squamous Epith Cells Many per lpf (None-Few) H 08/31/17 15:15 Urine Mucus Many (Few) H 08/31/17 15:15 All other labs normal. Consult Discharge Plan - Plan Referrals: José Antonio Palacios MD [Primary Care Provider] -
[2017-09-02] MEDS: *HR* Heparin 5,000 UNIT/ML VIAL SQ SCH ×3 (05:10→21:15)
[2017-09-02] MEDS: MetroNIDAZOLE 500 MG/100 ML 500 MG/100 ML BAG IVPB SCH ×3 (05:11→21:00)
[2017-09-02 05:59] LABS: Basophils % 0.2 %; Eosinophils # 0.1 K/mcL (0.0-0.6); Eosinophils % 0.7 %; Hematocrit 31.2 % (35.3-44.9); Hemoglobin 10.5 g/dL (11.5-15.4); Immature Granulocytes % 0.8 % (0-4); Lymphocytes # 1.5 K/mcL (0.6-4.6); Lymphocytes % 12.4 %; Mean Corpuscular HGB Conc 33.7 g/dL (31.6-35.5); Mean Corpuscular Hemoglobin 31.3 pg (28.0-33.3); Mean Corpuscular Volume 93.1 fL (83.0-100.0); Mean Platelet Volume 10.4 fL (9.4-12.4); Monocytes # 0.8 K/mcL (0.0-1.3); Monocytes % 6.5 %; Neutrophils # 9.4 K/mcL (1.6-8.9); Platelet Count 213 K/mcL (140-400); Red Blood Count 3.35 M/mcL (3.82-4.97); Red Cell Distribution Width 12.8 % (11.5-14.5); Segmented Neutrophils % 79.4 %
[2017-09-02 06:21] LABS: BUN/Creatinine Ratio 18 (6-26); Blood Urea Nitrogen 12 mg/dL (7-20); Calcium 8.2 mg/dL (8.6-10.8); Carbon Dioxide 23 mEq/L (19-29); Chloride 102 mEq/L (98-109); Glucose 92 mg/dL (70-99); Magnesium 1.5 mg/dL (1.6-2.6); Osmolality,Calculated 281 (280-300); Potassium 3.4 mEq/L (3.5-4.5); Sodium 136 mEq/L (136-145); eGFR For African Americans > 60 (> 60); eGFR For Non-African Americans > 60 (> 60)
[2017-09-02] MEDS: Prenatal Vit/FA 1 EACH TABLET PO SCH (09:20)
[2017-09-02] MEDS: Magnesium Oxide 400 MG TABLET PO SCH (09:21)
[2017-09-02] MEDS: Vancomycin 1,750 MG in D5% in Water 500 ML IVPB SCH ×2 (09:21→21:02)
[2017-09-02] MEDS: Aspirin 81 MG TAB.CHEW PO SCH (09:21)
[2017-09-02] MEDS: *HR* OxyCODONE/APAP 5/325 TABLET PO PRN ×2 (09:46→21:00)
--- NOTE | 2017-09-02 10:51 | OB/GYN Consult Note ---
Date of Encounter: 09/02/17 Time of Encounter: 10:50 Assessment and Plan (1) Wound infection following section, Current Visit: Yes Status: Acute Abdominal wound with visible signs of drainage, erythema, induration (right border), and crepitance (left border) as per physican exam. -Tachycardia resolved, mild leukocytosis overnight from 9.9 to 11.9 -Day 3 of IV Vanc, flagyl, and levquin. -Blood cultures negative -FU wound cultures -Consult wound management for application of wound vac. -Will order a repeat transvaginal US to rule out retained products of conception as first pelvic US was limited secondary to pain. (2) Chest pain Current Visit: Yes Status: Acute Follow cardiology recommendations and primary team management. 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 -Cardiology suggesting likely stress induced demand ischemia -Per primary team, continue treatment with beta saleem, IV lasix, and fluid restrictions. Qualifiers: Chest pain type: unspecified Qualified Code(s): R07.9 - Chest pain, unspecified History of Present Illness Consult date: 09/02/17 Requesting physician: Glen Morales Reason for consult: other ( section wound infection) Chief complaint: chest pain/SOB/abdominal pain History of present illness: Ms. Payne is a 27 yo female POD#6 section. Ms. Payne presented to labor and delivery at 37 2/7 weeks gestation on 08-26-2017 for labor and delivery. Patient received an emergent for bradycardia. Patient presented with abdominal pain around her incision in addition to dull , radiating chest pain as well as shortness of breath and bilateral pedal edema. Patient has a history of congenital heart disease and surgical repair as an infant. Patient was admitted to medicine after being found to have positive troponins. Her abdominopelvic CT scan showed abdominal changes consisent with recent surgery. She was found to have bilateral pleural effusions. A CTA of her chest was negative for PE. OBGYN was consulted for management of potential c- section wound. Patient is resting comfortably today. She states she is able to breath better since receiving lasix. She denies heavy vaginal bleeding. She denies fever. She does complain of a faulty breast pump, and she strongly desires to see her baby. Past Med Surg Social Fam HX - Past Medical History Attestation: Yes The following information was validated with the patient. Source: patient Medical history: asthma, other (congenital heart disease as an ) Psychiatric history: anxiety, depression - Past Surgical History Surgical History: (5 days ago) - Social History Smoking Status: Never smoker Smokeless Tobacco Status: No Alcohol use: none Drug use: none - Family History Father Living Status: Still Living Hx Family Cardiac Disorders: Yes Mother Adopted: No Twin of Family Member: Yes, Identical Living Status: Age at : 37 Cause of : spinal meningitis Hx Family Cardiac Disorders: Yes (grandfather) Hx Family Respiratory Disorders: Yes (copd grandmother) Hx Family Cancer: Yes (aunts, breast cancer) Hx Family GI Disorders: No Hx Family Genitourinary Disorders: No Hx Family Endocrine Disorder: No Hx Family Musculoskeletal Disorders: No Hx Family Neuromuscular Disorders: No Hx Family Neurologic Disorders: No Hx Family HEENT Disorders: No Hx Family Autoimmune Disorders: No Hx Family Reproductive Disorders: No Hx Family Psychosocial Disorders: No Hx Family Medical Disorders: No Medications and Allergies Vit/Iron Fumarate/FA [ Tablet] 1 tab PO DAILY 08/26/17 [History ] Ibuprofen [Motrin] 600 mg PO Q6HR PRN #60 tablet 08/28/17 [Rx] OxyCODONE/APAP 5/325 [Percocet 5/325 MG] 1 each PO Q6HR PRN #20 tablet 08/28/17 [Rx] Albuterol Sulfate [Proair Hfa] 2 puff IH Q4H PRN 08/31/17 [History] 3 Allergy/AdvReac Type Severity Reaction Status Date / Time Amoxicillin [From Augmentin] Allergy Diarrhea Verified 08/31/17 14:46 clavulanic acid Allergy Diarrhea Verified 08/31/17 14:46 [From Augmentin] latex Allergy Rash Verified 08/31/17 14:46 all cillins Allergy Rash Uncoded 12/04/15 07:52 Review of Systems All Systems: reviewed and no additional remarkable complaints except as stated Constitutional: no fever(s), no headache(s), no night sweats Nose, mouth and throat: no dizziness Cardiovascular: no chest pain, no chest pain at rest, no chest pain with activity, no lightheadedness, no orthopnea, no palpitations Respiratory: no cough, no dyspnea, no wheezing, no pain on inspiration Gastrointestinal: abdominal pain Psychiatric: no depression Exam - Vital Signs Vital signs: Initial Vital Signs Temp Pulse Resp BP Pulse Ox 98.4 F 136 22 95/57 95 08/31/17 14:41 08/31/17 14:41 08/31/17 14:41 08/31/17 14:41 08/31/17 14:41 - Constitutional Constitutional: well developed, well nourished, no acute distress - HEENT HEENT: Normocephaly, Mucus Membranes Moist - Lungs Respiratory exam: CTAB - Cardiovascular Cardiovascular exam: RRR, +S1, +S2 - Abdomen Abdomen: Present: bowel sounds normal. Absent: non tender (tenderness around wound incision. Wound with induration and warmth along the right border. There is a .5 cm area of dehiscence on the left border of the wound with sero-purulent discharge. There is surround erythema, warmth and fluctuance. ) - Extremities Extremities exam: radial pulses palpable and symmetrical Results Result Diagrams: 09/02/17 05:31 09/02/17 05:31 Abnormal lab results WBC 11.9 K/mcL (4.3-11.1) H 09/02/17 05:31 RBC 3.35 M/mcL (3.82-4.97) L 09/02/17 05:31 Hgb 10.5 g/dL (11.5-15.4) L 09/02/17 05:31 Hct 31.2 % (35.3-44.9) L 09/02/17 05:31 Neutrophils # 9.4 K/mcL (1.6-8.9) H 09/02/17 05:31 Nucleated RBCs/100 WBC 0.2 /100 WBC (0) H 09/01/17 04:22 PT 14.6 Seconds (9.4-12.1) H 09/01/17 04:22 VBG pCO2 39 mmHg (41-51) L 08/31/17 15:54 VBG pO2 64 mmHg (25-50) H 08/31/17 15:54 Potassium 3.4 mEq/L (3.5-4.5) L 09/02/17 05:31 Calcium 8.2 mg/dL (8.6-10.8) L 09/02/17 05:31 Magnesium 1.5 mg/dL (1.6-2.6) L 09/02/17 05:31 Troponin I 0.13 ng/mL (0-0.03) H* 09/01/17 04:22 B-Natriuretic Peptide 157 pg/mL (0-100) H 08/31/17 14:55 Serum Total Protein 5.7 g/dL (6.0-8.3) L 09/01/17 04:22 Albumin 2.0 g/dL (3.5-5.0) L D 09/01/17 04:22 Globulin 3.7 g/dL (2.4-3.5) H 09/01/17 04:22 Albumin/Globulin Ratio 0.5 (1.1-2.2) L 09/01/17 04:22 Triglycerides 167 mg/dL (< 150) H 09/01/17 04:22 LDL Cholesterol, Calc 128 mg/dL (0-99) H 09/01/17 04:22 VLDL Cholesterol, Calc 33 mg/dL (< 31) H 09/01/17 04:22 HDL Cholesterol 34 mg/dL (40-59) L 09/01/17 04:22 Cholesterol/HDL Ratio 5.7 (0-4.9) H 09/01/17 04:22 Ur Specific [place] > 1.030 (1.010-1.025) H 08/31/17 15:15 Urine Protein 100 mg/dL (Neg-Trace) H 08/31/17 15:15 Urine Ketones 80 mg/dL (Negative) H 08/31/17 15:15 Urine Bilirubin Small (Negative) H 08/31/17 15:15 Urine Microscopic RBC 3-5 per hpf (0-3) H 08/31/17 15:15 Urine Microscopic WBC 5-15 per hpf (0-3) H 08/31/17 15:15 Ur Squamous Epith Cells Many per lpf (None-Few) H 08/31/17 15:15 Urine Mucus Many (Few) H 08/31/17 15:15 Vancomycin Trough 4.8 mcg/mL (10-20) L 09/02/17 07:55 All other labs normal. Consult Discharge Plan - Plan Referrals: [facility] – [place],José Antonio Quiroz MD [Primary Care Provider] - - Attending Attestation I examined this patient and my medical decision-making was reviewed with the Resident Physician. I agree with the documented findings, disposition and treatment plan as described. POC per consult with Dr Monk. Nicki Bingham CNM
--- NOTE | 2017-09-02 11:05 | Cardiology Progress Note ---
Date of Encounter: 09/02/17 Time of Encounter: 10:55 Assessment and Plan (1) Pulmonary edema Current Visit: Yes Status: Acute Possible mild pulmonary edema seen on CT. Also c/o SOB, orthopnea, and BLE edema since 08/26/17. TTE 06/2017- EF 60-65%, mild LA. TTE completed this admission shows normal systolic and diastolic function. Pulmonary edema may be related to recent and . No indication for further cardiac testing at this time. Continue IV lasix as needed. Symptoms improved. Out-pt f/u will be coordinated by [facility] in 2-3 weeks. Cardiology will sign off. Call with questions. Qualifiers: Qualified Code(s): J81.0 - Acute pulmonary edema (2) Elevated troponin I level Current Visit: Yes Status: Acute Mild troponin elevation in the setting of pulmonary edema. Likely demand ischemia. EKG with no acute ST changes. TTE shows preserved LV function. No indication for further testing. Discussion w patient/family: The assessment and plan as outlined above was discussed with the patient and/or family members who expressed understanding and agreement. All questions were answered. Thank you for involving us in the care of your patient. Please call with any questions. Subjective Principal diagnosis: Pulmonary edema Interval history: Patient reports she is doing better. She is breathing better. BLE improved. Denies chest pain. Objective General: Conversant, No Apparent Distress HEENT: Atraumatic, Normocephaly, Mucus Membranes Moist Neck: No JVD, Normal carotid pulses Cardiac: Reg Rate and Rhythm, Normal S1 and S2, No Murmur Lungs: Normal Breath Sounds, No Wheeze, Rales, Rhonchi Neuro: Alert and responsive, No focal deficits noted Abdomen: Soft, Non-Tender Skin: No rashes noted on visualized skin Musculoskeletal: No Chest Wall Tenderness Extremities: No Clubbing, No Cyanosis, No Edema, Normal Pulses, Other (Trace edema bilateral feet.) Results 09/02/17 05:31 09/02/17 05:31 Lab Results 09/02/17 09/02/17 05:31 05:31 WBC 11.9 H Hgb 10.5 L Hct 31.2 L Plt Count 213 Sodium 136 Potassium 3.4 L Chloride 102 Carbon Dioxide 23 BUN 12 Creatinine 0.65 Glucose 92 Calcium 8.2 L Magnesium 1.5 L - Imaging and Cardiology Echo: report reviewed Consult Discharge Plan - Plan Referrals: José Antonio Palacios MD [Primary Care Provider] -
--- NOTE | 2017-09-02 15:14 | Internal Med Progress Note ---
<Feroz Iraheta - Last Filed: 09/02/17 15:10> Date of Encounter: 09/02/17 Time of Encounter: 08:40 - Assessment and plan (1) Sepsis Current Visit: Yes Status: Acute Assessment and plan: Sepsis 2/2 wound infection from her site. She continues to have tachycardia, though this is improving. 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 Her current symptoms are likely due to her wound infection. Significant amounts of purulent discharge was present this morning and was sent for culture. Her apparent fluid status is likely due to the amount of fluids she received during her . Pelvic antransvaginal US show that she has post- changes, small amount of fluid, endometrial thickening (without vascular flow), whether from blood or retained products. Tachycardia, leukocytosis, tachypnea. The patient's RN does report that the antibiotic pumps have been stopped multiple times by her visitors and she has not been receiving her scheduled antibiotics. I have spoken with OBGYN who are aware and the images will be evaluated FILLING AND PACKING SUPERVISOR has been consulted and appreciate recommendations for daily management/ care Stopped IV lasix yesterday evening as this appears to be more sepsis than cardiomyopathy Continue antibiotics of vancomycin, flagyl, and levaquin day 3 Continue to monitor electrolytes with daily labs Qualifiers: Sepsis type: sepsis due to unspecified organism Qualified Code(s): A41.9 - Sepsis, unspecified organism (2) Wound infection following section, Current Visit: Yes Status: Acute Assessment and plan: Patient had 6 days ago. Patient noted burning sensation as well as purulent drainage around sites of wound VAC today prior to presentation to the hospital. Patient started on Vancomycin, Flagyl, and Levaquin at admission. FILLING AND PACKING SUPERVISOR consulted and appreciate recommendations Continue empiric antibiotics for now, plan to de-escalate in future if improvement in patient's status seen Concern for elevated heart rate represents reaction to infection Plan as above (3) Breast feeding status of mother Current Visit: No Status: Acute Assessment and plan: Patient currently breast-feeding but to "pump and dump" her milk at the time of admission. This was due to concern of the various medications that she will be receiving while inpatient as well as until further assessment of her heart. Recommend continued pumping of breastmilk, but not feeding it to her (4) Asthma Current Visit: Yes Status: Chronic Assessment and plan: Currently stable Continue home albuterol Qualifiers: Asthma severity: mild Asthma persistence: intermittent Asthma complication type: uncomplicated Qualified Code(s): J45.20 - Mild intermittent asthma, uncomplicated (5) DVT prophylaxis Current Visit: Yes Status: Acute Assessment and plan: 5000 units heparin subcutaneous 3 times a day - Subjective Interval history: Patient reports having improvement of her abdominal discomfort from yesterday, though still reports significant pain in her lower abdomen around site of her C- section scar. She denies having any fever/chills, she denies any weakness or chest pain. - Constitutional Vitals: Temp Pulse Resp BP Pulse Ox 98.3 F 99 16 144/94 99 09/02/17 07:00 09/02/17 07:00 09/02/17 07:00 09/02/17 07:00 09/02/17 07:00 General appearance: Present: cooperative, A&O X 3, morbidly obese, pleasant, no acute distress, answers questions appropriately Exam: General: Cooperative, pleasant, no acute distress, alert and oriented 3, answers questions appropriately HEENT: Normocephalic, atraumatic, Conjunctiva pink, sclera anicteric Respiratory: No accessory muscle usage, clear to auscultation bilaterally, no wheezes/rhonchi/rales appreciated Cardiovascular: Tachycardia, S1 and S2 present, no murmurs/rubs/gallops/clicks appreciated GI/abdominal: Nondistended, tenderness and erythema in lower abdomen around c- section scar, area of induration and erythema has extended beyond the margins of the skin marker, when pannus lifted there was copious amount of purulent drainage from the middle of her incision, normal bowel sounds, no peritoneal signs Extremities: No calf tenderness, noncyanotic, mild pedal edema appreciated, warm , lower extremity pulses palpable and symmetrical Neurological: Alert and oriented 3, no facial droop, no focal deficits Skin: Dry, intact, normal color Internal Medicine: Result - Labs CBC & Chem 7: 09/02/17 05:31 09/02/17 05:31 Labs: Short CBC 09/02/17 Range/Units 05:31 WBC 11.9 H (4.3-11.1) K/mcL Hgb 10.5 L (11.5-15.4) g/dL Hct 31.2 L (35.3-44.9) % Plt Count 213 (140-400) K/mcL Neutrophils # 9.4 H (1.6-8.9) K/mcL BMP 09/02/17 05:31 Sodium 136 Potassium 3.4 L Chloride 102 Carbon Dioxide 23 BUN 12 Creatinine 0.65 Glucose 92 Calcium 8.2 L - ABG Interpretation ABG results: PT/INR, D-dimer PT 14.6 Seconds (9.4-12.1) H 09/01/17 04:22 - Impressions Impressions Echocardiogram 09/01/17 13:00 Impressions: LVEF 60-65%. Sinus tachycardia. Normal left ventricular diastolic function. RV is not well evaluated. No significant valvular dysfunction. No pulmonary hypertension. Left Ventricular Wall Motion: Rest Echo Findings All wall segments showed normal motion. Findings: Study Quality * Technically somewhat challenging exam - angulated views. ECG Findings * Sinus tachycardia. Left Ventricle * Normal left ventricular diastolic function. * LVEF 60-65%. * Normal LV size and wall thickness. Right Ventricle * RV is not well evaluated. Left Atrium * Normal left atrial size. Right Atrium * Normal right atrial size. Aortic Valve * No aortic regurgitation. * Trileaflet aortic valve. * No aortic stenosis. Mitral Valve * Normal mitral valve structure. * No mitral regurgitation. * No mitral stenosis. Tricuspid Valve * Tricuspid valve not well visualized. * Trace tricuspid regurgitation. Pulmonic Valve * Pulmonic valve is not well visualized. * No pulmonic stenosis. * No pulmonic regurgitation. Pulmonary Artery * Pulmonary artery not well visualized. Aorta * Normally sized aortic root. Pericardium * There is no pericardial effusion present. Interatrial Septum * Interatrial septum not well evaluated. IVC * The IVC is not well evaluated. Pelvis Ultrasound 09/01/17 20:00 IMPRESSION: Extremely limited pelvic ultrasound as outlined above. Question of small amount of fluid in the lower endometrial canal. Otherwise no significant abnormality. D/ /01/2017 21:08:41 Tyron Coleman MD / [facility] Interpreting Provider: Tyron Coleman MD Transvaginal US 09/02/17 11:00 IMPRESSION: changes in the uterus. Small amount of fluid at the section site in the lower uterine segment. Endometrial thickening up to 24 mm. No vascular flow in the endometrium. Findings could be due to blood products or retained products of conception. Ovaries not visualized. D/ / 09/02/2017 12:17:05 Rell Alarcon MD / [facility] Interpreting Provider: Rell Alarcon MD Consult Discharge Plan - Plan Referrals: José Antonio Palacios MD [Primary Care Provider] - <Seth Peterson - Last Filed: 09/02/17 16:55> Date of Encounter: 09/02/17 - Constitutional Vitals: Temp Pulse Resp BP Pulse Ox 98.2 F 91 17 135/82 97 09/02/17 15:00 09/02/17 15:00 09/02/17 15:00 09/02/17 15:00 09/02/17 15:00 Internal Medicine: Result - Labs CBC & Chem 7: 09/02/17 05:31 09/02/17 05:31 Labs: Short CBC 09/02/17 Range/Units 05:31 WBC 11.9 H (4.3-11.1) K/mcL Hgb 10.5 L (11.5-15.4) g/dL Hct 31.2 L (35.3-44.9) % Plt Count 213 (140-400) K/mcL Neutrophils # 9.4 H (1.6-8.9) K/mcL BMP 09/02/17 05:31 Sodium 136 Potassium 3.4 L Chloride 102 Carbon Dioxide 23 BUN 12 Creatinine 0.65 Glucose 92 Calcium 8.2 L - ABG Interpretation ABG results: PT/INR, D-dimer PT 14.6 Seconds (9.4-12.1) H 09/01/17 04:22 - Impressions Impressions Pelvis Ultrasound 09/01/17 20:00 IMPRESSION: Extremely limited pelvic ultrasound as outlined above. Question of small amount of fluid in the lower endometrial canal. Otherwise no significant abnormality. D/ / 09/01/2017 21:08:41 Tyron Coleman MD / [facility] Interpreting Provider: Tyron Coleman MD Transvaginal US 09/02/17 11:00 IMPRESSION: changes in the uterus. Small amount of fluid at the section site in the lower uterine segment. Endometrial thickening up to 24 mm. No vascular flow in the endometrium. Findings could be due to blood products or retained products of conception. Ovaries not visualized. D/ / 09/02/2017 12:17:05 Rell Alarcon MD / [facility] Interpreting Provider: Rell Alarcon MD - Attending Attestation I have seen and examined the patient independently. I have discussed with resident physician Dr Iraheta regarding the management plan. Agree with the documentation. Patient still has drainage from the wound. Need to change dressings frequently. No fever. Vital signs stable. Will continue antibiotic with vancomycin, Levaquin, and the Flagyl at this point. Follow-up wound culture. FILLING AND PACKING SUPERVISOR on case for wound care and care.
[2017-09-02] MEDS: Levofloxacin 750 MG/150 ML 750 MG/150 ML BAG IVPB SCH (15:43)
[2017-09-03 04:35] LABS: Basophils % 0.3 %; Eosinophils # 0.2 K/mcL (0.0-0.6); Eosinophils % 2.5 %; Immature Granulocytes % 1.1 % (0-4); Lymphocytes # 1.3 K/mcL (0.6-4.6); Lymphocytes % 18.3 %; Mean Corpuscular HGB Conc 34.5 g/dL (31.6-35.5); Mean Corpuscular Hemoglobin 31.5 pg (28.0-33.3); Mean Corpuscular Volume 91.5 fL (83.0-100.0); Monocytes # 0.4 K/mcL (0.0-1.3); Monocytes % 5.4 %; Neutrophils # 5.2 K/mcL (1.6-8.9); Platelet Count 221 K/mcL (140-400); Red Blood Count 3.17 M/mcL (3.82-4.97); Red Cell Distribution Width 12.6 % (11.5-14.5); Segmented Neutrophils % 72.4 %
[2017-09-03 04:42] LABS: BUN/Creatinine Ratio 19 (6-26); Blood Urea Nitrogen 12 mg/dL (7-20); Calcium 8.2 mg/dL (8.6-10.8); Carbon Dioxide 21 mEq/L (19-29); Chloride 109 mEq/L (98-109); Glucose 133 mg/dL (70-99); Magnesium 1.7 mg/dL (1.6-2.6); Osmolality,Calculated 294 (280-300); Potassium 3.4 mEq/L (3.5-4.5); Sodium 141 mEq/L (136-145); eGFR For African Americans > 60 (> 60); eGFR For Non-African Americans > 60 (> 60)
[2017-09-03] MEDS: *HR* Heparin 5,000 UNIT/ML VIAL SQ SCH ×3 (05:18→22:11)
[2017-09-03] MEDS: *HR* OxyCODONE/APAP 5/325 TABLET PO PRN ×2 (05:35→22:15)
[2017-09-03 05:45] LABS: Platelet Estimate Normal (Normal)
--- NOTE | 2017-09-03 09:43 | Internal Med Progress Note ---
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 Pelvic antransvaginal US show that she has post- changes, small amount of fluid, endometrial thickening (without vascular flow), whether from blood or retained products. The patient's RN does report that the antibiotic pumps have been stopped multiple times by her visitors and she has not been receiving her scheduled antibiotics. I have spoken with OBGYN who are aware of the US results and not immediately worries and state that the images will be evaluated by the OBGYN NURSE CARE MANAGER has been consulted and appreciate recommendations for daily management/ care Stopped IV lasix 09/01/17 evening as this appears to be more sepsis than cardiomyopathy Continue antibiotics of vancomycin, flagyl, and levaquin day 4, unsure how much she has been receiving as there is concern with her IVs ceasing to function and her IV pumps being found off with half of her AB still in the bag EPIV placed this morning Continue to monitor electrolytes with daily labs Qualifiers: Sepsis type: sepsis due to unspecified organism Qualified Code(s): A41.9 - Sepsis, unspecified organism (2) Wound infection following section, Current Visit: Yes Status: Acute Assessment and plan: Patient had 7 days ago Patient noted burning sensation as well as purulent drainage around sites of C- section wound VAC today prior to presentation to the hospital Patient started on Vancomycin, Flagyl, and Levaquin at admission Transvaginal US showed thickened endometrium w/o vascular flow, could be blood products or retained products of conception Area of erythema and induration growing past skin marking NURSE CARE MANAGER consulted and appreciate recommendations Continue empiric antibiotics for now, plan to de-escalate in future if improvement in patient's status seen Concern for elevated heart rate represents reaction to infection Plan as above (3) Breast feeding status of mother Current Visit: No Status: Acute Assessment and plan: Patient currently breast-feeding but to "pump and dump" her milk at the time of admission. This was due to concern of the various medications that she will be receiving while inpatient as well as until further assessment of her heart. Recommend continued pumping of breastmilk, but not feeding it to her (4) Asthma Current Visit: Yes Status: Chronic Assessment and plan: Currently stable Continue home albuterol Qualifiers: Asthma severity: mild Asthma persistence: intermittent Asthma complication type: uncomplicated Qualified Code(s): J45.20 - Mild intermittent asthma, uncomplicated (5) DVT prophylaxis Current Visit: Yes Status: Acute Assessment and plan: 5000 units heparin subcutaneous 3 times a day - Subjective Interval history: Patient reports worsening abdominal pain to the touch since yesterday. She is concerned that the area of erythema and warmth has grown beyond the skin markings. There has been continued drainage from her scar. She denies having any fever/chills at this time. No difficulty breathing or nausea/ vomiting. She does report that she has had decreased appetite. - Constitutional Vitals: Temp Pulse Resp BP Pulse Ox 98.1 F 85 16 135/84 98 09/03/17 07:55 09/03/17 07:55 09/03/17 07:55 09/03/17 07:55 09/03/17 07:55 General appearance: Present: cooperative, A&O X 3, morbidly obese, pleasant, no acute distress, answers questions appropriately Exam: General: Cooperative, pleasant, no acute distress, alert and oriented 3, answers questions appropriately HEENT: Normocephalic, atraumatic, Conjunctiva pink, sclera anicteric Respiratory: No accessory muscle usage, clear to auscultation bilaterally, no wheezes/rhonchi/rales appreciated Cardiovascular: Tachycardia, S1 and S2 present, no murmurs/rubs/gallops/clicks appreciated GI/abdominal: Nondistended, tenderness and erythema in lower abdomen around c- section scar, area of induration and erythema has extended beyond the margins of the skin marker, no observed fluid discharged today, normal bowel sounds, no peritoneal signs Extremities: No calf tenderness, noncyanotic, mild pedal edema appreciated ( improving), warm, lower extremity pulses palpable and symmetrical Neurological: Alert and oriented 3, no facial droop, no focal deficits Skin: Dry, intact, normal color Internal Medicine: Result - Labs CBC & Chem 7: 09/03/17 04:06 09/03/17 04:06 Labs: Short CBC 09/03/17 Range/Units 04:06 WBC 7.2 (4.3-11.1) K/mcL Hgb 10.0 L (11.5-15.4) g/dL Hct 29.0 L (35.3-44.9) % Plt Count 221 (140-400) K/mcL Neutrophils # 5.2 (1.6-8.9) K/mcL BMP 09/03/17 04:06 Sodium 141 Potassium 3.4 L Chloride 109 Carbon Dioxide 21 BUN 12 Creatinine 0.63 Glucose 133 H Calcium 8.2 L - ABG Interpretation ABG results: PT/INR, D-dimer PT 14.6 Seconds (9.4-12.1) H 09/01/17 04:22 - Impressions Impressions Transvaginal US 09/02/17 11:00 IMPRESSION: changes in the uterus. Small amount of fluid at the section site in the lower uterine segment. Endometrial thickening up to 24 mm. No vascular flow in the endometrium. Findings could be due to blood products or retained products of conception. Ovaries not visualized. D/ / 09/02/2017 12:17:05 Rell Alarcon MD / [facility] Interpreting Provider: Rell Alarcon MD Consult Discharge Plan - Plan Referrals: José Antonio Palacios MD [Primary Care Provider] - <Seth Peterson - Last Filed: 09/03/17 16:49> Date of Encounter: 09/03/17 - Constitutional Vitals: Temp Pulse Resp BP Pulse Ox 97.8 F 83 16 128/84 98 09/03/17 15:59 09/03/17 15:59 09/03/17 15:59 09/03/17 15:59 09/03/17 15:59 Internal Medicine: Result - Labs CBC & Chem 7: 09/03/17 04:06 09/03/17 04:06 Labs: Short CBC 09/03/17 Range/Units 04:06 WBC 7.2 (4.3-11.1) K/mcL Hgb 10.0 L (11.5-15.4) g/dL Hct 29.0 L (35.3-44.9) % Plt Count 221 (140-400) K/mcL Neutrophils # 5.2 (1.6-8.9) K/mcL BMP 09/03/17 04:06 Sodium 141 Potassium 3.4 L Chloride 109 Carbon Dioxide 21 BUN 12 Creatinine 0.63 Glucose 133 H Calcium 8.2 L - ABG Interpretation ABG results: PT/INR, D-dimer PT 14.6 Seconds (9.4-12.1) H 09/01/17 04:22 - Impressions Impressions Transvaginal US 09/02/17 11:00 IMPRESSION: changes in the uterus. Small amount of fluid at the section site in the lower uterine segment. Endometrial thickening up to 24 mm. No vascular flow in the endometrium. Findings could be due to blood products or retained products of conception. Ovaries not visualized. D/ / 09/02/2017 12:17:05 Rell Alarcon MD / [facility] Interpreting Provider: Rell Alarcon MD - Attending Attestation I have seen and examined the patient independently. I have discussed with resident physician Dr Iraheta regarding the management plan. Agree with the documentation. Patient has no fever. WBC get down. Abdominal wall redness has extended. Still has C section incision discharge. Will continue Vanco, Levaquin, and Flagyl. NURSE CARE MANAGER consult on case.
[2017-09-03] MEDS ORDERED: Aminoglycoside Consult 1 EACH MC ONE (10:14)
[2017-09-03] MEDS: Aspirin 81 MG TAB.CHEW PO SCH (10:55)
[2017-09-03] MEDS: Magnesium Oxide 400 MG TABLET PO SCH (10:55)
[2017-09-03] MEDS: Prenatal Vit/FA 1 EACH TABLET PO SCH (10:55)
[2017-09-03] MEDS: MetroNIDAZOLE 500 MG/100 ML 500 MG/100 ML BAG IVPB SCH ×3 (10:55→22:11)
[2017-09-03] MEDS ORDERED: Vancomycin 1,750 MG in D5% in Water 250 ML IVPB SCH (11:00)
[2017-09-03] MEDS: Vancomycin 1,750 MG in D5% in Water 500 ML IVPB SCH (12:19)
[2017-09-03] MEDS: Levofloxacin 750 MG/150 ML 750 MG/150 ML BAG IVPB SCH (14:38)
--- NOTE | 2017-09-03 15:57 | OB/GYN Consult Note ---
Date of Encounter: 09/03/17 Time of Encounter: 15:55 Assessment and Plan (1) Wound infection following section, Current Visit: Yes Status: Acute Incision clean and dry. Erythema and warmth improving. Pt is afebrile with improving leukocytosis. Continue current antibiotic regimen. (2) Morbid obesity with BMI of 40.0-44.9, adult Current Visit: Yes Status: Chronic (3) Gestational diabetes Current Visit: No Status: Acute Will get accucheck this evening 2 hours after dinner and fasting in AM. Would consider sliding scale if elevations noted. Qualifiers: Gestational diabetes mellitus control: diet-controlled Trimester: third trimester Qualified Code(s): O24.410 - Gestational diabetes mellitus in , diet controlled (4) Mother currently breast-feeding Current Visit: No Status: Acute Pt informed of benefits vs risks associated with giving breastmilk to baby while on current medications. All current medications are category L2 which are considered reasonably safe and compatible with . History of Present Illness Consult date: 09/03/17 Requesting physician: Feroz Iraheta Chief complaint: wound infection History of present illness: Ms. Payne is a 27 yo female POD#7 section. Ms. Payne received an emergent for bradycardia. She presented on 08/31 with abdominal pain around her incision in addition to dull, radiating chest pain as well as shortness of breath and bilateral pedal edema. Patient has a history of congenital heart disease and surgical repair as an . Patient was admitted to medicine after being found to have positive troponins. Her abdominopelvic CT scan showed abdominal changes consistent with recent surgery. She was found to have bilateral pleural effusions. A CTA of her chest was negative for PE. OBGYN was consulted for management of potential wound infection. Patient is resting comfortably today. She states she is able to breathe better since receiving lasix. She denies heavy vaginal bleeding. She denies fevers or chills. She reports some discomfort in her stretch ochoa on both sides at her hips due to edema. She feels that her abdominal pain has improved. Per the nursing staff, the erythema and induration around her incision have significantly improved when compared to yesterday. She did have significant drainage from the midline of her incision yesterday and this am. No active draining currently. Past Med Surg Social Fam HX - Past Medical History Attestation: Yes The following information was validated with the patient. Source: patient Medical history: asthma, other (congenital heart disease as an ) Psychiatric history: anxiety, depression - Past Surgical History Surgical History: (5 days ago) - Social History Smoking Status: Never smoker Smokeless Tobacco Status: No Alcohol use: none Drug use: none - Family History Father Living Status: Still Living Hx Family Cardiac Disorders: Yes Mother Adopted: No Twin of Family Member: Yes, Identical Living Status: Age at : 37 Cause of : spinal meningitis Hx Family Cardiac Disorders: Yes (grandfather) Hx Family Respiratory Disorders: Yes (copd grandmother) Hx Family Cancer: Yes (aunts, breast cancer) Hx Family GI Disorders: No Hx Family Genitourinary Disorders: No Hx Family Endocrine Disorder: No Hx Family Musculoskeletal Disorders: No Hx Family Neuromuscular Disorders: No Hx Family Neurologic Disorders: No Hx Family HEENT Disorders: No Hx Family Autoimmune Disorders: No Hx Family Reproductive Disorders: No Hx Family Psychosocial Disorders: No Hx Family Medical Disorders: No Medications and Allergies Vit/Iron Fumarate/FA [ Tablet] 1 tab PO DAILY 08/26/17 [History ] Ibuprofen [Motrin] 600 mg PO Q6HR PRN #60 tablet 08/28/17 [Rx] OxyCODONE/APAP 5/325 [Percocet 5/325 MG] 1 each PO Q6HR PRN #20 tablet 08/28/17 [Rx] Albuterol Sulfate [Proair Hfa] 2 puff IH Q4H PRN 08/31/17 [History] 3 Allergy/AdvReac Type Severity Reaction Status Date / Time Amoxicillin [From Augmentin] Allergy Diarrhea Verified 08/31/17 14:46 clavulanic acid Allergy Diarrhea Verified 08/31/17 14:46 [From Augmentin] latex Allergy Rash Verified 08/31/17 14:46 all cillins Allergy Rash Uncoded 12/04/15 07:52 Review of Systems Constitutional: no chills, no fever(s), no headache(s) Eyes: bilateral: blurred vision (denies any vision changes) Breasts: other (pumping breastmilk without problems) Cardiovascular: no chest pain, no dyspnea Gastrointestinal: abdominal pain (well managed with PO medications) Genitourinary Female: other (lochia red, changed pad twice today) Integumentary: as per HPI Psychiatric: no suicidal ideation Endocrine: other (gestational diabetes diet controlled) Exam - Vital Signs Vital signs: Initial Vital Signs Temp Pulse Resp BP Pulse Ox 98.4 F 136 22 95/57 95 08/31/17 14:41 08/31/17 14:41 08/31/17 14:41 08/31/17 14:41 08/31/17 14:41 - Constitutional Constitutional: no acute distress, morbidly obese - HEENT HEENT: Mucus Membranes Moist - Lungs Respiratory exam: CTAB - Cardiovascular Cardiovascular exam: RRR - Abdomen Abdomen: Present: bowel sounds normal (erythema noted to umbilicus, mild induration around incision, no drainage, abdomen soft and appropriately tender, fundus U/1 and firm, lochia light) - Extremities Extremities exam: pedal edema (1+ bilaterally, no erythema or warmth) - Vulva Vulva: bilateral: normal Results Result Diagrams: 09/03/17 04:06 09/03/17 04:06 Abnormal lab results RBC 3.17 M/mcL (3.82-4.97) L 09/03/17 04:06 Hgb 10.0 g/dL (11.5-15.4) L 09/03/17 04:06 Hct 29.0 % (35.3-44.9) L 09/03/17 04:06 Nucleated RBCs/100 WBC 0.2 /100 WBC (0) H 09/01/17 04:22 PT 14.6 Seconds (9.4-12.1) H 09/01/17 04:22 VBG pCO2 39 mmHg (41-51) L 08/31/17 15:54 VBG pO2 64 mmHg (25-50) H 08/31/17 15:54 Potassium 3.4 mEq/L (3.5-4.5) L 09/03/17 04:06 Glucose 133 mg/dL (70-99) H 09/03/17 04:06 Calcium 8.2 mg/dL (8.6-10.8) L 09/03/17 04:06 Troponin I 0.13 ng/mL (0-0.03) H* 09/01/17 04:22 B-Natriuretic Peptide 157 pg/mL (0-100) H 08/31/17 14:55 Serum Total Protein 5.7 g/dL (6.0-8.3) L 09/01/17 04:22 Albumin 2.0 g/dL (3.5-5.0) L D 09/01/17 04:22 Globulin 3.7 g/dL (2.4-3.5) H 09/01/17 04:22 Albumin/Globulin Ratio 0.5 (1.1-2.2) L 09/01/17 04:22 Triglycerides 167 mg/dL (< 150) H 09/01/17 04:22 LDL Cholesterol, Calc 128 mg/dL (0-99) H 09/01/17 04:22 VLDL Cholesterol, Calc 33 mg/dL (< 31) H 09/01/17 04:22 HDL Cholesterol 34 mg/dL (40-59) L 09/01/17 04:22 Cholesterol/HDL Ratio 5.7 (0-4.9) H 09/01/17 04:22 Ur Specific [place] > 1.030 (1.010-1.025) H 08/31/17 15:15 Urine Protein 100 mg/dL (Neg-Trace) H 08/31/17 15:15 Urine Ketones 80 mg/dL (Negative) H 08/31/17 15:15 Urine Bilirubin Small (Negative) H 08/31/17 15:15 Urine Microscopic RBC 3-5 per hpf (0-3) H 08/31/17 15:15 Urine Microscopic WBC 5-15 per hpf (0-3) H 08/31/17 15:15 Ur Squamous Epith Cells Many per lpf (None-Few) H 08/31/17 15:15 Urine Mucus Many (Few) H 08/31/17 15:15 Vancomycin Trough 4.8 mcg/mL (10-20) L 09/02/17 07:55 All other labs normal. Consult Discharge Plan - Plan Referrals: José Antonio Palacios MD [Primary Care Provider] -
[2017-09-03] MEDS ORDERED: metroNIDAZOLE 500 MG TABLET PO ONE (23:20)
[2017-09-04] MEDS: Vancomycin 1,750 MG in D5% in Water 500 ML IVPB SCH (00:31)
[2017-09-04] MEDS: MetroNIDAZOLE 500 MG/100 ML 500 MG/100 ML BAG IVPB SCH ×4 (00:40→21:28)
[2017-09-04 05:40] LABS: Basophils % 0.5 %; Eosinophils # 0.3 K/mcL (0.0-0.6); Eosinophils % 5.1 %; Hemoglobin 9.8 g/dL (11.5-15.4); Immature Granulocytes % 2.5 % (0-4); Lymphocytes # 1.8 K/mcL (0.6-4.6); Lymphocytes % 29.2 %; Mean Corpuscular HGB Conc 33.8 g/dL (31.6-35.5); Mean Corpuscular Hemoglobin 31.3 pg (28.0-33.3); Mean Corpuscular Volume 92.7 fL (83.0-100.0); Mean Platelet Volume 10.5 fL (9.4-12.4); Monocytes # 0.4 K/mcL (0.0-1.3); Monocytes % 6.4 %; Neutrophils # 3.4 K/mcL (1.6-8.9); Platelet Count 254 K/mcL (140-400); Red Blood Count 3.13 M/mcL (3.82-4.97); Red Cell Distribution Width 12.8 % (11.5-14.5); Segmented Neutrophils % 56.3 %
[2017-09-04 06:04] LABS: BUN/Creatinine Ratio 18 (6-26); Blood Urea Nitrogen 11 mg/dL (7-20); Calcium 8.5 mg/dL (8.6-10.8); Carbon Dioxide 21 mEq/L (19-29); Chloride 113 mEq/L (98-109); Glucose 77 mg/dL (70-99); Magnesium 1.6 mg/dL (1.6-2.6); Osmolality,Calculated 296 (280-300); Sodium 144 mEq/L (136-145); eGFR For African Americans > 60 (> 60); eGFR For Non-African Americans > 60 (> 60)
[2017-09-04 06:10] LABS: Potassium 3.9 mEq/L (3.5-4.5)
[2017-09-04] MEDS: *HR* Heparin 5,000 UNIT/ML VIAL SQ SCH ×3 (06:29→21:29)
[2017-09-04] MEDS: *HR* OxyCODONE/APAP 5/325 TABLET PO PRN ×2 (06:32→16:15)
[2017-09-04] MEDS: Prenatal Vit/FA 1 EACH TABLET PO SCH (09:18)
[2017-09-04] MEDS: Magnesium Oxide 400 MG TABLET PO SCH (09:18)
[2017-09-04] MEDS: Aspirin 81 MG TAB.CHEW PO SCH (09:19)
--- NOTE | 2017-09-04 09:22 | Internal Med Progress Note ---
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 Pelvic and transvaginal US show that she has post- changes, small amount of fluid, endometrial thickening (without vascular flow), whether from blood or retained products. Area of erythema much improved today Continued warmth around area of previous cellulitis Continued pain to palpation and some firmness Patient complains of whole body aches and itching today Continue difficulty having IV access today OBGYN are aware of the US results and not immediately worries and state that the images will be evaluated by the OBGYN LABORER CONSTRUCTION OR [employer] informed the RN that they will sign off Stopped IV lasix 09/01/17 evening as this appears to be more sepsis than cardiomyopathy Continue antibiotics of flagyl and levaquin day 5, unsure how much she has been receiving as there is concern with her IVs ceasing to function and her IV pumps being found off and continued problems ith her IV Will stop vancomycin today Continue to monitor electrolytes with daily labs Qualifiers: Sepsis type: sepsis due to unspecified organism Qualified Code(s): A41.9 - Sepsis, unspecified organism (2) Wound infection following section, Current Visit: Yes Status: Acute Assessment and plan: Patient had 8 days ago Patient noted burning sensation as well as purulent drainage around sites of C- section wound VAC today prior to presentation to the hospital Patient started on Vancomycin, Flagyl, and Levaquin at admission Transvaginal US showed thickened endometrium w/o vascular flow, could be blood products or retained products of conception Area of erythema and induration improved today Plan as above (3) Breast feeding status of mother Current Visit: No Status: Acute Assessment and plan: Patient currently breast-feeding but to "pump and dump" her milk at the time of admission. This was due to concern of the various medications that she will be receiving while inpatient as well as until further assessment of her heart. Her current medications were individually evaluated by OBGYN and deemed safe for breast feeding (4) Asthma Current Visit: Yes Status: Chronic Assessment and plan: Currently stable Continue home albuterol Qualifiers: Asthma severity: mild Asthma persistence: intermittent Asthma complication type: uncomplicated Qualified Code(s): J45.20 - Mild intermittent asthma, uncomplicated (5) DVT prophylaxis Current Visit: Yes Status: Acute Assessment and plan: 5000 units heparin subcutaneous 3 times a day - Subjective Interval history: Patient does report that she is feeling about the same today as she did yesterday, though it is slightly different now. She reports that she is still having some tenderness in her abdomen, but that it has improved slightly and moved more to her sides. She states that she has become itchy all over. SHe also reports whole body achiness. She feels as if her abdomen is still warm. She denies fever and chills. She denies nausea and vomiting. - Constitutional Vitals: Temp Pulse Resp BP Pulse Ox 97.6 F 78 16 142/97 97 09/04/17 07:59 09/04/17 07:59 09/04/17 07:59 09/04/17 07:59 09/04/17 07:59 General appearance: Present: cooperative, A&O X 3, morbidly obese, pleasant, no acute distress, answers questions appropriately Exam: General: Cooperative, pleasant, no acute distress, alert and oriented 3, answers questions appropriately HEENT: Normocephalic, atraumatic, Conjunctiva pink, sclera anicteric Respiratory: No accessory muscle usage, clear to auscultation bilaterally, no wheezes/rhonchi/rales appreciated Cardiovascular: Regular rate and rhythm, S1 and S2 present, no murmurs/rubs/ gallops/clicks appreciated GI/abdominal: Nondistended, tenderness in lower abdomen around scar, firmness still present immediately around c section incision, no erythema appreciated today (much improved from prior), no observed fluid discharged today , normal bowel sounds, no peritoneal signs Extremities: No calf tenderness, noncyanotic, mild pedal edema appreciated, warm , lower extremity pulses palpable and symmetrical Neurological: Alert and oriented 3, no facial droop, no focal deficits Skin: Dry, intact, normal color Internal Medicine: Result - Labs CBC & Chem 7: 09/04/17 05:20 09/04/17 05:20 Labs: Short CBC 09/04/17 Range/Units 05:20 WBC 6.1 (4.3-11.1) K/mcL Hgb 9.8 L (11.5-15.4) g/dL Hct 29.0 L (35.3-44.9) % Plt Count 254 (140-400) K/mcL Neutrophils # 3.4 (1.6-8.9) K/mcL BMP 09/04/17 05:20 Sodium 144 Potassium 3.9 Chloride 113 H Carbon Dioxide 21 BUN 11 Creatinine 0.60 Glucose 77 Calcium 8.5 L - ABG Interpretation ABG results: PT/INR, D-dimer PT 14.6 Seconds (9.4-12.1) H 09/01/17 04:22 Consult Discharge Plan - Plan Referrals: [facility] – [place],José Antonio Quiroz MD [Primary Care Provider] - <Seth Peterson - Last Filed: 09/04/17 16:53> Date of Encounter: 09/04/17 - Constitutional Vitals: Temp Pulse Resp BP Pulse Ox 97.7 F 66 18 143/109 97 09/04/17 16:19 09/04/17 16:19 09/04/17 16:19 09/04/17 16:19 09/04/17 16:19 Internal Medicine: Result - Labs CBC & Chem 7: 09/04/17 05:20 09/04/17 05:20 Labs: Short CBC 09/04/17 Range/Units 05:20 WBC 6.1 (4.3-11.1) K/mcL Hgb 9.8 L (11.5-15.4) g/dL Hct 29.0 L (35.3-44.9) % Plt Count 254 (140-400) K/mcL Neutrophils # 3.4 (1.6-8.9) K/mcL [facility] 09/04/17 05:20 Sodium 144 Potassium 3.9 Chloride 113 H Carbon Dioxide 21 BUN 11 Creatinine 0.60 Glucose 77 Calcium 8.5 L - ABG Interpretation ABG results: PT/INR, D-dimer PT 14.6 Seconds (9.4-12.1) H 09/01/17 04:22 - Attending Attestation I have seen and examined patient independently. I have discussed with the resident physician Dr. Iraheta regarding the management plan. Agree with the documentation.
[2017-09-04] MEDS: Levofloxacin 750 MG/150 ML 750 MG/150 ML BAG IVPB SCH (16:16)
[2017-09-05] MEDS: *HR* OxyCODONE/APAP 5/325 TABLET PO PRN ×2 (02:20→15:37)
[2017-09-05] MEDS: MetroNIDAZOLE 500 MG/100 ML 500 MG/100 ML BAG IVPB SCH (05:05)
[2017-09-05] MEDS: *HR* Heparin 5,000 UNIT/ML VIAL SQ SCH ×2 (05:06→18:20)
[2017-09-05 05:59] LABS: Basophils # 0.1 K/mcL (0.0-0.2); Basophils % 0.7 %; Eosinophils # 0.2 K/mcL (0.0-0.6); Eosinophils % 3.3 %; Hematocrit 30.1 % (35.3-44.9); Hemoglobin 10.2 g/dL (11.5-15.4); Immature Granulocytes % 3.5 % (0-4); Lymphocytes # 2.1 K/mcL (0.6-4.6); Lymphocytes % 30.4 %; Mean Corpuscular HGB Conc 33.9 g/dL (31.6-35.5); Mean Corpuscular Hemoglobin 31.4 pg (28.0-33.3); Mean Corpuscular Volume 92.6 fL (83.0-100.0); Mean Platelet Volume 9.8 fL (9.4-12.4); Monocytes # 0.4 K/mcL (0.0-1.3); Monocytes % 5.5 %; Neutrophils # 3.9 K/mcL (1.6-8.9); Platelet Count 298 K/mcL (140-400); Red Blood Count 3.25 M/mcL (3.82-4.97); Red Cell Distribution Width 12.7 % (11.5-14.5); Segmented Neutrophils % 56.6 %
[2017-09-05] MEDS: Prenatal Vit/FA 1 EACH TABLET PO SCH (09:36)
[2017-09-05] MEDS: Magnesium Oxide 400 MG TABLET PO SCH (09:36)
--- NOTE | 2017-09-05 09:36 | Internal Med Progress Note ---
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 Pelvic and transvaginal US show that she has post- changes, small amount of fluid, endometrial thickening (without vascular flow), whether from blood or retained products. Area of erythema continues to improve Continued warmth around area of previous cellulitis Continued pain to palpation and some firmness Patient does report having completely saturated dressing earlier in the evening/ morning Stopped IV lasix 09/01/17 evening as this appears to be more sepsis than cardiomyopathy Vancomycin stopped 09/04/17, will consider re-adding vancomycin if no improvement seen OBGYN are aware of the US results and not immediately worries and state that the images will be evaluated by the OBGYN NURSING PROFESSOR have sign off Continue antibiotics of flagyl and levaquin day 6, unsure how much she has been receiving as there is concern with her IVs ceasing to function and her IV pumps being found off and continued problems with her IV Continue to monitor electrolytes with daily labs Qualifiers: Sepsis type: sepsis due to unspecified organism Qualified Code(s): A41.9 - Sepsis, unspecified organism (2) Wound infection following section, Current Visit: Yes Status: Acute Assessment and plan: Patient had 9 days ago Patient noted burning sensation as well as purulent drainage around sites of C- section wound VAC today prior to presentation to the hospital Patient started on Vancomycin, Flagyl, and Levaquin at admission Transvaginal US showed thickened endometrium w/o vascular flow, could be blood products or retained products of conception Area of erythema and induration improved today Plan as above (3) Breast feeding status of mother Current Visit: No Status: Acute Assessment and plan: See NURSING PROFESSOR documentation from 09/03/17 Her current medications were individually evaluated by OBGYN and deemed safe for breast feeding (4) Lower extremity pain Current Visit: Yes Status: Acute Assessment and plan: Patient reports having new right lower extremity pain in her calf and foot. It is tender to the touch and positive Homans sign. There appears to be asymmetrical swelling with +1 edema in her right lower extremity and only mild edema on the left. We will obtain right lower extremity Doppler Qualifiers: Laterality: right Qualified Code(s): M79.604 - Pain in right leg (5) Asthma Current Visit: Yes Status: Chronic Assessment and plan: Currently stable Continue home albuterol Qualifiers: Asthma severity: mild Asthma persistence: intermittent Asthma complication type: uncomplicated Qualified Code(s): J45.20 - Mild intermittent asthma, uncomplicated (6) DVT prophylaxis Current Visit: Yes Status: Acute Assessment and plan: 5000 units heparin subcutaneous 3 times a day - Subjective Interval history: Patient does report having continued discomfort in both for size, but does state she has not been moving out of bed. She also states she has noticed continued discharge from her previous surgical wound as well as having a saturated dressing earlier. She states she is having pain in her right lower extremity that she just noticed today. She denies having continued fevers/ chills, denies nausea/vomiting, denies shortness of breath. - Constitutional Vitals: Temp Pulse Resp BP Pulse Ox 97.8 F 71 18 159/106 97 09/05/17 07:00 09/05/17 07:00 09/05/17 07:00 09/05/17 07:00 09/05/17 07:00 General appearance: Present: cooperative, A&O X 3, morbidly obese, pleasant, no acute distress, answers questions appropriately Exam: General: Cooperative, pleasant, mild acute distress, alert and oriented 3, answers questions appropriately HEENT: Normocephalic, atraumatic, Conjunctiva pink, sclera anicteric Respiratory: No accessory muscle usage, clear to auscultation bilaterally, no wheezes/rhonchi/rales appreciated Cardiovascular: Regular rate and rhythm, S1 and S2 present, no murmurs/rubs/ gallops/clicks appreciated GI/abdominal: Nondistended, tenderness in lower abdomen around scar, tenderness in bilateral sides, firmness still present immediately around c section incision, no erythema appreciated today, no overt discharge seen this morning, dressing appears somewhat saturated, normal bowel sounds, no peritoneal signs Extremities: Right calf tenderness, positive Homans sign on right, mild pedal edema on left, +1 pedal edema on right, warm, lower extremity pulses palpable and symmetrical Neurological: Alert and oriented 3, no facial droop, no focal deficits Skin: Dry, intact, normal color Internal Medicine: Result - Labs CBC & Chem 7: 09/05/17 05:37 09/04/17 05:20 Labs: Short CBC 09/05/17 Range/Units 05:37 WBC 6.9 (4.3-11.1) K/mcL Hgb 10.2 L (11.5-15.4) g/dL Hct 30.1 L (35.3-44.9) % Plt Count 298 (140-400) K/mcL Neutrophils # 3.9 (1.6-8.9) K/mcL - ABG Interpretation ABG results: PT/INR, D-dimer PT 14.6 Seconds (9.4-12.1) H 09/01/17 04:22 Consult Discharge Plan - Plan Additional Instructions: Please return to the ED if worsening abdominal pain, development of fever/chills , development of nausea/vomiting, or development of discharge from your surgical incision site. Please take all medications as prescribed: Levaquin 750 mg daily for 7 days Metronidazole 500 mg 3 times a day for 7 days Please follow up with your OBGYN in 1 week Please follow up with wound care in 1-2 weeks Referrals: José Antonio Palacios MD [Primary Care Provider] - 09/15/17 9:00 am Prescriptions: levoFLOXacin [Levaquin] 750 mg PO DAILY #7 tablet metroNIDAZOLE [Metronidazole] 500 mg PO TID #21 tablet <Seth Peterson - Last Filed: 09/05/17 17:08> Date of Encounter: 09/05/17 - Constitutional Vitals: Temp Pulse Resp BP Pulse Ox 98.4 F 97 17 155/106 97 09/05/17 15:00 09/05/17 15:00 09/05/17 15:00 09/05/17 15:00 09/05/17 15:00 Internal Medicine: Result - Labs CBC & Chem 7: 09/05/17 05:37 09/04/17 05:20 Labs: Short CBC 09/05/17 Range/Units 05:37 WBC 6.9 (4.3-11.1) K/mcL Hgb 10.2 L (11.5-15.4) g/dL Hct 30.1 L (35.3-44.9) % Plt Count 298 (140-400) K/mcL Neutrophils # 3.9 (1.6-8.9) K/mcL - ABG Interpretation ABG results: PT/INR, D-dimer PT 14.6 Seconds (9.4-12.1) H 09/01/17 04:22 - Attending Attestation I have seen and examined pt independently, I have discussed with Resident physician Dr Iraheta regarding the management plan. Agree with the documentation. Pt has no fever. C/o right leg pain/swelling. No SOB. Abd redness improved. Will order US legs B/L, if negative, plan D/C pt home on po abx. F/U at NURSING PROFESSOR clinic for incision wound care.
--- NOTE | 2017-09-05 10:17 | Discharge Summary ---
<Feroz Iraheta - Last Filed: 09/05/17 12:02> Date of Encounter: 09/05/17 Time of Encounter: 08:25 - Discharge Diagnosis (1) Sepsis Priority: Primary Status: Resolved Qualifiers: Sepsis type: sepsis due to unspecified organism Qualified Code(s): A41.9 - Sepsis, unspecified organism (2) Wound infection following section, Priority: Primary Status: Acute (3) Breast feeding status of mother Priority: Primary Status: Acute (4) Lower extremity pain Priority: Primary Status: Acute Qualifiers: Laterality: right Qualified Code(s): M79.604 - Pain in right leg (5) Asthma Priority: Primary Status: Chronic Qualifiers: Asthma severity: mild Asthma persistence: intermittent Asthma complication type: uncomplicated Qualified Code(s): J45.20 - Mild intermittent asthma, uncomplicated (6) DVT prophylaxis Priority: Secondary Status: Acute - Discharge Medications Prescriptions: levoFLOXacin [Levaquin] 750 mg PO DAILY #7 tablet metroNIDAZOLE [Metronidazole] 500 mg PO TID #21 tablet Home Medications: Vit/Iron Fumarate/FA [ Tablet] 1 tab PO DAILY 08/26/17 [History ] Ibuprofen [Motrin] 600 mg PO Q6HR PRN #60 tablet 08/28/17 [Rx] OxyCODONE/APAP 5/325 [Percocet 5/325 MG] 1 each PO Q6HR PRN #20 tablet 08/28/17 [Rx] Albuterol Sulfate [Proair Hfa] 2 puff IH Q4H PRN 08/31/17 [History] levoFLOXacin [Levaquin] 750 mg PO DAILY #7 tablet 09/05/17 [Rx] metroNIDAZOLE [Metronidazole] 500 mg PO TID #21 tablet 09/05/17 [Rx] Allergies/Adverse Reactions: 3 Allergy/AdvReac Type Severity Reaction Status Date / Time Amoxicillin [From Augmentin] Allergy Diarrhea Verified 08/31/17 14:46 clavulanic acid Allergy Diarrhea Verified 08/31/17 14:46 [From Augmentin] latex Allergy Rash Verified 08/31/17 14:46 all cillins Allergy Rash Uncoded 12/04/15 07:52 Procedures/tests Complete & Pending: Procedures Performed prior 72 hours Category Date Time Status US transvaginal [US] Routine Exams 09/02/17 11:00 Completed EV venous imaging LE RT Routine Y 09/05/17 09:36 Ordered Venous Doppler [EV venous imaging LE BI] Stat Y 09/05/17 09:34 Ordered Date of admission: 08/31/17 20:01 Primary care physician: José Antonio Palacios MD Consults: 08/31/17 20:08 Consult to RUBBER PRODUCTION MACHINE OPERATOR [CONS] Routine Consulting Provider: OIL FILTERS INSPECTOR Keri Reason for Consult: 5 days post-; wound with wound vac -- please assess wound and for post- issues. Call Completed: Yes 08/31/17 20:09 Consult to Physician [CONS] Routine Consulting Provider: Vinay Wang Reason for Consult: CHf symptoms; suspect post- cardiomyopathy. S/P c- section 5 days ago. Call Completed: No 09/02/17 11:14 Consult to Wound Care [CONS] Stat Reason for Consult: Drainage from left side of incision. Time Notified: 11:15 Call Completed: Yes 09/03/17 23:20 Consult to Invasive Line Access Team [CONS] Routine Reason for Consult: PICC line insertion Line Type: PICC Discharging clinician: Feroz Iraheta Anticipated date of discharge: 09/05/17 - Patient Status Disposition: Home, Self-Care Condition: Good Functional capacity at discharge: independent ambulation Overall status at discharge: patient is progressing back to baseline - Discharge Instructions Instructions: Metronidazole (By mouth), Levofloxacin (By mouth), Chest Pain (DC ), Wound Infection (DC) Follow Up With: José Antonio Palacios MD [Primary Care Provider] - 09/15/17 9:00 am Additional Instructions: Please return to the ED if worsening abdominal pain, development of fever/chills , development of nausea/vomiting, or development of discharge from your surgical incision site. Please take all medications as prescribed: Levaquin 750 mg daily for 7 days Metronidazole 500 mg 3 times a day for 7 days Please follow up with your OBGYN in 1 week Please follow up with wound care in 1-2 weeks - Diet and Activity Activity: increase activity as tolerated Diet: advance to your usual diet Interval History: Patient reports having continued pain in her sides and in her lower abdomen. She also reports having some continued drainage of the surgical room. She also reports having new right lower extremity pain. Otherwise she feels well and feels like she is improving. She denies fever/chills, denies nausea/vomiting. Patient does feel safe for discharge and will like to get home to be with her baby. Hospital course: Mrs. Payne is a 27 year old female with past medical history of asthma and 5- days post who presented to [facility] on 08/31/17 with a 2 day history of worsening LE edema, fevers, chills, and reported some purulent drainage around the site of her wound vac. She had the wound vac in place over her incision site. She was septic at admission with tachycardia and tachypnea. She was initially thought to be having post- cardiomyopathy and was started on Lasix as well as Vancomycin, Levaquin, and flagyl due to concerns of a wound infection. After admission an echocardiogram was performed that showed that she had a normal EF, indicating that sepsis was the main driver's license reviewing officer of her symptoms. She was continued on IV antibiotics, but appeared to have worsening cellulitis around her incision site. OBGYN had been consulted in the ER and they were following to assist with caring for her infection. 2 days after admission, , she was found to have copious amounts of purulent discharge from her incision and underwent evaluation for abscess or retained products of conception. The pelvic ultrasound did not reveal an abscess and she was found to have a thickened endometrium, that was consistent with begin 1 week post- (the images were reviewed by the OBGYN). The area of cellulitis continued to spread, but there was concern that the patient had not been receiving the full doses of her antibiotics; either from the patients IVs continuing to fail or from the pumps being found to be turned off (suspecting the family/friends of the patient). After better vascular access was achieved, the patient began receiving the full doses of her antibiotics and the cellulitis then began to improve. She did develop right lower extremity pain and she was found not to have a DVT by venous doppler. As of the time of discharge the area of erythema has gone down remarkedly and she has had improvement in the amount of drainage seen from the c section scar. She reports having continued tenderness in her sides and lower abdomen, but feels that she would be safe to go home. She is safe for discharge with continued PO antibiotics and to have close follow up with her OBGYN to assess the status of the infection and her surgical incision. - Time Spent with Patient Total time spent providing and/or coordinating discharge services: - Constitutional Vitals: Temp Pulse Resp BP Pulse Ox 97.8 F 71 18 159/106 97 09/05/17 07:00 09/05/17 07:00 09/05/17 07:00 09/05/17 07:00 09/05/17 07:00 General appearance: Present: cooperative, A&O X 3, morbidly obese, pleasant, no acute distress, answers questions appropriately Exam: General: Cooperative, pleasant, mild acute distress, alert and oriented 3, answers questions appropriately HEENT: Normocephalic, atraumatic, Conjunctiva pink, sclera anicteric Respiratory: No accessory muscle usage, clear to auscultation bilaterally, no wheezes/rhonchi/rales appreciated Cardiovascular: Regular rate and rhythm, S1 and S2 present, no murmurs/rubs/ gallops/clicks appreciated GI/abdominal: Nondistended, tenderness in lower abdomen around scar, tenderness in bilateral sides, firmness still present immediately around c section incision, no erythema appreciated today, no overt discharge seen this morning, dressing appears somewhat saturated, normal bowel sounds, no peritoneal signs Extremities: Right calf tenderness, positive Homans sign on right, mild pedal edema on left, +1 pedal edema on right, warm, lower extremity pulses palpable and symmetrical Neurological: Alert and oriented 3, no facial droop, no focal deficits Skin: Dry, intact, normal color <Seth Peterson - Last Filed: 09/05/17 18:32> Date of Encounter: 09/05/17 Procedures/tests Complete & Pending: Procedures Performed prior 72 hours Category Date Time Status Venous Doppler [EV venous imaging LE BI] Stat Y 09/05/17 09:34 Ordered Date of admission: 08/31/17 20:01 Primary care physician: José Antonio Palacios MD Consults: 08/31/17 20:08 Consult to RUBBER PRODUCTION MACHINE OPERATOR [CONS] Routine Consulting Provider: OIL FILTERS INSPECTOR Keri Reason for Consult: 5 days post-; wound with wound vac -- please assess wound and for post- issues. Call Completed: Yes 08/31/17 20:09 Consult to Physician [CONS] Routine Consulting Provider: Vinay Wang Reason for Consult: CHf symptoms; suspect post- cardiomyopathy. S/P c- section 5 days ago. Call Completed: No 09/02/17 11:14 Consult to Wound Care [CONS] Stat Reason for Consult: Drainage from left side of incision. Time Notified: 11:15 Call Completed: Yes 09/03/17 23:20 Consult to Invasive Line Access Team [CONS] Routine Reason for Consult: PICC line insertion Line Type: PICC Hospital course: Ms. Payne is a 27 year old female - Time Spent with Patient Total time spent providing and/or coordinating discharge services: - Constitutional Vitals: Temp Pulse Resp BP Pulse Ox 98.4 F 97 17 155/106 97 09/05/17 15:00 09/05/17 15:00 09/05/17 15:00 09/05/17 15:00 09/05/17 15:00 - Attending Attestation I have seen and examined pt independently, I have discussed with Resident physician Dr Iraheta regarding the management plan. Agree with the documentation.
[2017-09-05] MEDS ORDERED: MetroNIDAZOLE 500 MG/100 ML 500 MG/100 ML BAG IVPB SCH (14:35)
[2017-09-05] MEDS ORDERED: Levofloxacin 750 MG/150 ML 750 MG/150 ML BAG IVPB SCH (14:35)
[2017-09-05 15:20] VITALS: BP 155/106
[2017-09-06] MEDS ORDERED: metroNIDAZOLE 500 MG TABLET PO SCH (09:00)
[2017-09-06] MEDS ORDERED: levoFLOXacin 750 MG TABLET PO SCH (15:00)
== END 2017-09-05 18:48 | disposition home or self-care (01) | DRG 776 ==
LOC: EMEROO 14:32 → 2NENU 14:32 → SUATTDRO 20:01
PROVIDERS: ADMIT Hospitalist; ATTEND Internal Medicine

== ENCOUNTER 2018-01-31 12:40 | Observation (INO) ==
[2018-01-31] MEDS ORDERED: 0.9 % Sodium Chloride 1,000 ML IVC ONE (12:56)
[2018-01-31] MEDS ORDERED: Ondansetron 4 MG/2 ML VIAL IVP ONE (12:57)
[2018-01-31] MEDS ORDERED: *HR* FentaNYL (PF) 100 MCG/2 ML VIAL IVP ONE (12:57)
--- NOTE | 2018-01-31 12:59 | Emergency Department Note ---
Disposition Clinical Impression: Acute cholecystitis Disposition: Admitted As Inpatient Condition: Undetermined Referrals: José Antonio Palacios MD [Primary Care Provider] - Forms: ED Satisfaction Letter, Work/School Release Time of Disposition: 15:25 Abdominal Pain HPI - General Chief Complaint: ED Abdominal Pain Stated Complaint: abd pain Time Seen by Provider: 01/31/18 12:51 Source: patient Mode of arrival: private vehicle Limitations: no limitations Nursing Notes Reviewed: Yes Vital Signs Reviewed: Yes - History of Present Illness HPI Narrative: 27-year-old female with history of appendicitis without appendectomy, A2, , arrives to the emergency department roughly 36 hours after coming in complaining of right lower quadrant pain. The patient states this feels very similar to when she was diagnosed with appendicitis years ago. The patient has associated nausea without vomiting. She is a large amount of pain the very tearful on examination. Patient denies any other complaints at this time. Patient's workup 36 hours ago revealed cholelithiasis without cholecystitis. No other acute abnormality. - Related Data Home Medications Medication Instructions Recorded Confirmed Vit/Iron Fumarate/FA 1 tab PO DAILY 08/26/17 09/01/17 [ Tablet] Albuterol Sulfate [Proair Hfa] 2 puff IH Q4H PRN 08/31/17 09/01/17 Previous Rx's Medication Instructions Recorded Ibuprofen [Motrin] 600 mg PO Q6HR PRN #60 tablet 08/28/17 OxyCODONE/APAP 5/325 [Percocet 1 each PO Q6HR PRN #20 tablet 08/28/17 5/325 MG] levoFLOXacin [Levaquin] 750 mg PO DAILY #7 tablet 09/05/17 metroNIDAZOLE [Metronidazole] 500 mg PO TID #21 tablet 09/05/17 Allergies Allergy/AdvReac Type Severity Reaction Status Date / Time Amoxicillin [From Augmentin] Allergy Diarrhea Verified 01/30/18 03:51 clavulanic acid Allergy Diarrhea Verified 01/30/18 03:51 [From Augmentin] latex Allergy Rash Verified 01/30/18 03:51 All systems ED: reviewed and negative except as stated. Constitutional: Denies: fever, chills, weakness ENT ED: Denies: congestion Cardiovascular: Denies: chest pain Respiratory: Denies: dyspnea Gastrointestinal: Reports: abdominal pain, nausea. 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), endometriosis Psychiatric history: Reports: anxiety, depression - Social History Smoking status: Never smoker Alcohol use: Reports: none Drug use: Reports: none Physical Exam - General Limitations: no limitations General appearance: alert, in distress (Due to pain) - Head Head exam: atraumatic, normocephalic, normal inspection - Eye Eye exam: Present: normal appearance, PERRL, EOMI - ENT ENT exam: normal exam, normal oropharynx, mucous membranes moist - Neck Neck exam: Present: normal inspection, full ROM, trachea midline - Chest Chest inspection: Present: normal inspection, symmetric chest wall rise - Respiratory Respiratory exam: Present: normal lung sounds bilaterally - Cardiovascular Cardiovascular exam: Present: regular rate, normal rhythm, normal heart sounds - Abdominal Exam Abdominal exam: Present: soft, tenderness (RLQ), tenderness at McBurney's Point. Absent: distention, guarding, rebound, rigidity, Francois's sign, Rovsing' s sign, pulsatile mass, hernia, scar - Extremities Exam Extremities exam: Present: normal inspection, full ROM. Absent: tenderness, pedal edema - Back Exam Back exam: Present: normal inspection, full ROM. Absent: tenderness - Neurological Exam Neurological exam: Present: alert, oriented X3 - Skin Skin exam: Present: warm, dry, intact, normal color Course Vital Signs Temperature 97.3 F L 01/31/18 12:53 Pulse Rate 84 01/31/18 12:53 Respiratory Rate 16 01/31/18 12:53 Blood Pressure 155/107 01/31/18 12:53 O2 Sat by Pulse Oximetry 96 01/31/18 12:53 Temperature 97.3 F L 01/31/18 12:53 Pulse Rate 84 01/31/18 12:53 Respiratory Rate 16 01/31/18 12:53 Blood Pressure 155/107 01/31/18 12:53 O2 Sat by Pulse Oximetry 96 01/31/18 12:53 Oxygen Delivery Oxygen Delivery Room Air Abdominal Pain - MDM Narrative Medical decision making narrative: Ultrasound in the emergency department demonstrates findings consistent with cholecystitis. Patient has no leukocytosis. She does have cholelithiasis without common bile duct thickening. The patient's pain will be addressed once admitted. We administered 1 dose of IV Rocephin here in the emergency department. We will admit the patient to Dr. Connor in surgery. - Medical Records Medical records reviewed: Yes I reviewed the patient's medical records. - Lab Data Lab results reviewed: Yes I reviewed the patient's lab results. Result diagrams: 01/31/18 13:20 01/31/18 13:20 Lab Results 01/31/18 01/31/18 01/31/18 Range/Units 12:50 13:01 13:20 WBC (4.3-11.1) K/mcL RBC (3.82-4.97) M/mcL Hgb (11.5-15.4) g/dL Hct (35.3-44.9) % MCV (83.0-100.0) fL MCH (28.0-33.3) pg MCHC (31.6-35.5) g/dL RDW (11.5-14.5) % Plt Count (140-400) K/mcL MPV (9.4-12.4) fL Immature Gran % (0-4) % Seg Neutrophils % % Lymphocytes % % Monocytes % % Eosinophils % % Basophils % % Neutrophils # (1.6-8.9) K/mcL Lymphocytes # (0.6-4.6) K/mcL Monocytes # (0.0-1.3) K/mcL Eosinophils # (0.0-0.6) K/mcL Basophils # (0.0-0.2) K/mcL Potassium 5.1 (3.5-5.1) mEq/L Lipase (11-82) Units/L Urine Color Yellow (Yellow) Urine Clarity Clear (Clear) Urine pH 6.0 (5.0-8.0) pH Units Ur Specific [place] 1.023 (1.010-1.025) Urine Protein Negative (Neg-Trace) mg/dL Urine Glucose (UA) Normal (Normal) mg/dL Urine Ketones Negative (Negative) mg/dL Urine Blood Negative (Negative) Urine Nitrite Negative (Negative) Urine Bilirubin Negative (Negative) Urine Urobilinogen Normal (Normal) mg/dL Ur Leukocyte Esterase Negative (Negative) Ur Culture Indicated? NO (NO) Urine Test Negative (Negative) 01/31/18 01/31/18 Range/Units 13:20 13:20 WBC 6.7 (4.3-11.1) K/mcL RBC 4.52 (3.82-4.97) M/mcL Hgb 13.9 (11.5-15.4) g/dL Hct 40.7 (35.3-44.9) % MCV 90.0 (83.0-100.0) fL MCH 30.8 (28.0-33.3) pg MCHC 34.2 (31.6-35.5) g/dL RDW 12.2 (11.5-14.5) % Plt Count 233 (140-400) K/mcL MPV 11.3 (9.4-12.4) fL Immature Gran % 0.9 (0-4) % Seg Neutrophils % 61.8 % Lymphocytes % 31.1 % Monocytes % 4.5 % Eosinophils % 1.4 % Basophils % 0.3 % Neutrophils # 4.1 (1.6-8.9) K/mcL Lymphocytes # 2.1 (0.6-4.6) K/mcL Monocytes # 0.3 (0.0-1.3) K/mcL Eosinophils # 0.1 (0.0-0.6) K/mcL Basophils # 0.0 (0.0-0.2) K/mcL Potassium (3.5-5.1) mEq/L Lipase 15 (11-82) Units/L Urine Color (Yellow) Urine Clarity (Clear) Urine pH (5.0-8.0) pH Units Ur Specific [place] (1.010-1.025) Urine Protein (Neg-Trace) mg/dL Urine Glucose (UA) (Normal) mg/dL Urine Ketones (Negative) mg/dL Urine Blood (Negative) Urine Nitrite (Negative) Urine Bilirubin (Negative) Urine Urobilinogen (Normal) mg/dL Ur Leukocyte Esterase (Negative) Ur Culture Indicated? (NO) Urine Test (Negative) - Radiology Data Radiology results reviewed: Yes I reviewed the patient's radiology results. Abdomen/Pelvis CT 01/31/18 12:56 IMPRESSION: Stable study showing cholelithiasis and fatty infiltration of the liver. D/ / Swapna Dixon Cha, MD / Swapna Dixon Cha, MD Interpreting Provider: Swapna Dixon Cha, MD Gallbladder Ultrasound 01/31/18 13:03 IMPRESSION: 1. Cholelithiasis. 2. Borderline gallbladder wall thickening and possible fluid adjacent to the gallbladder which can be seen with acute cholecystitis. Negative Francois sign. 3. Mild hepatic steatosis. D/ / José Quintero / José Quintero Interpreting Provider: José Quintero
--- NOTE | 2018-01-31 12:59 | Emergency Department Note ---
Disposition Clinical Impression: Acute cholecystitis Disposition: Admitted As Inpatient Condition: Undetermined Referrals: José Antonio Palacios MD [Primary Care Provider] - Forms: ED Satisfaction Letter, Work/School Release General Adult HPI - General Chief complaint: ED Abdominal Pain Stated complaint: abd pain Time Seen by Provider: 01/31/18 12:51 - Related Data Home Medications Medication Instructions Recorded Confirmed Albuterol Sulfate [Proair Hfa] 2 puff IH Q4H PRN 08/31/17 01/31/18 Previous Rx's Medication Instructions Recorded Ibuprofen [Motrin] 600 mg PO Q6HR PRN #60 tablet 08/28/17 Allergies Allergy/AdvReac Type Severity Reaction Status Date / Time Amoxicillin [From Augmentin] Allergy Diarrhea Verified 01/30/18 03:51 clavulanic acid Allergy Diarrhea Verified 01/30/18 03:51 [From Augmentin] latex Allergy Rash Verified 01/30/18 03:51 Past Medical History - Past Medical History Medical history: Reports: asthma Surgical history: Reports: (5 days ago) Psychiatric history: Reports: anxiety, depression PHYS THER history: Reports: spontaneous (x2), endometriosis - Social History Smoking Status: Never smoker Smokeless Tobacco Status: No Alcohol use: Reports: none Drug use: Reports: none Course Vital Signs Temperature 97.3 F L 01/31/18 12:53 Pulse Rate 84 01/31/18 12:53 Respiratory Rate 16 01/31/18 12:53 Blood Pressure 155/107 01/31/18 12:53 O2 Sat by Pulse Oximetry 96 01/31/18 12:53 Temperature 97.3 F L 01/31/18 12:53 Pulse Rate 53 01/31/18 17:35 Respiratory Rate 18 01/31/18 17:35 Blood Pressure 132/97 01/31/18 17:35 O2 Sat by Pulse Oximetry 96 01/31/18 15:33 Oxygen Delivery Oxygen Delivery Room Air Medical Decision Making - Lab Data Result diagrams: 01/31/18 13:20 01/31/18 13:20 Lab Results 01/31/18 01/31/18 01/31/18 Range/Units 12:50 13:01 13:20 WBC (4.3-11.1) K/mcL RBC (3.82-4.97) M/mcL Hgb (11.5-15.4) g/dL Hct (35.3-44.9) % MCV (83.0-100.0) fL MCH (28.0-33.3) pg MCHC (31.6-35.5) g/dL RDW (11.5-14.5) % Plt Count (140-400) K/mcL MPV (9.4-12.4) fL Immature Gran % (0-4) % Seg Neutrophils % % Lymphocytes % % Monocytes % % Eosinophils % % Basophils % % Neutrophils # (1.6-8.9) K/mcL Lymphocytes # (0.6-4.6) K/mcL Monocytes # (0.0-1.3) K/mcL Eosinophils # (0.0-0.6) K/mcL Basophils # (0.0-0.2) K/mcL Sodium 139 (136-145) mEq/L Potassium 5.1 (3.5-5.1) mEq/L Chloride 109 H (98-107) mEq/L Carbon Dioxide 23 (23-29) mEq/L BUN 18 (6-20) mg/dL Creatinine 0.86 (0.60-1.20) mg/dL Est GFR ( Amer) > 60 (> 60) Est GFR (Non-Af Amer) > 60 (> 60) BUN/Creatinine Ratio 21 (6-26) Glucose 91 (70-105) mg/dL Calculated Osmolality 289 (280-300) Calcium 8.8 (8.6-10.3) mg/dL Total Bilirubin 0.3 (0.3-1.0) mg/dL AST 31 (13-39) Units/L ALT 32 (7-52) Units/L Alkaline Phosphatase 86 (34-104) Units/L Serum Total Protein 7.1 (6.4-8.9) g/dL Albumin 4.1 (3.5-5.7) g/dL Globulin 3.0 (2.4-3.5) g/dL Albumin/Globulin Ratio 1.4 (1.1-2.2) Lipase (11-82) Units/L Urine Color Yellow (Yellow) Urine Clarity Clear (Clear) Urine pH 6.0 (5.0-8.0) pH Units Ur Specific [place] 1.023 (1.010-1.025) Urine Protein Negative (Neg-Trace) mg/dL Urine Glucose (UA) Normal (Normal) mg/dL Urine Ketones Negative (Negative) mg/dL Urine Blood Negative (Negative) Urine Nitrite Negative (Negative) Urine Bilirubin Negative (Negative) Urine Urobilinogen Normal (Normal) mg/dL Ur Leukocyte Esterase Negative (Negative) Ur Culture Indicated? NO (NO) Urine Test Negative (Negative) 01/31/18 01/31/18 Range/Units 13:20 13:20 WBC 6.7 (4.3-11.1) K/mcL RBC 4.52 (3.82-4.97) M/mcL Hgb 13.9 (11.5-15.4) g/dL Hct 40.7 (35.3-44.9) % MCV 90.0 (83.0-100.0) fL MCH 30.8 (28.0-33.3) pg MCHC 34.2 (31.6-35.5) g/dL RDW 12.2 (11.5-14.5) % Plt Count 233 (140-400) K/mcL MPV 11.3 (9.4-12.4) fL Immature Gran % 0.9 (0-4) % Seg Neutrophils % 61.8 % Lymphocytes % 31.1 % Monocytes % 4.5 % Eosinophils % 1.4 % Basophils % 0.3 % Neutrophils # 4.1 (1.6-8.9) K/mcL Lymphocytes # 2.1 (0.6-4.6) K/mcL Monocytes # 0.3 (0.0-1.3) K/mcL Eosinophils # 0.1 (0.0-0.6) K/mcL Basophils # 0.0 (0.0-0.2) K/mcL Sodium (136-145) mEq/L Potassium (3.5-5.1) mEq/L Chloride (98-107) mEq/L Carbon Dioxide (23-29) mEq/L BUN (6-20) mg/dL Creatinine (0.60-1.20) mg/dL Est GFR ( Amer) (> 60) Est GFR (Non-Af Amer) (> 60) BUN/Creatinine Ratio (6-26) Glucose (70-105) mg/dL Calculated Osmolality (280-300) Calcium (8.6-10.3) mg/dL Total Bilirubin (0.3-1.0) mg/dL AST (13-39) Units/L ALT (7-52) Units/L Alkaline Phosphatase (34-104) Units/L Serum Total Protein (6.4-8.9) g/dL Albumin (3.5-5.7) g/dL Globulin (2.4-3.5) g/dL Albumin/Globulin Ratio (1.1-2.2) Lipase 15 (11-82) Units/L Urine Color (Yellow) Urine Clarity (Clear) Urine pH (5.0-8.0) pH Units Ur Specific [place] (1.010-1.025) Urine Protein (Neg-Trace) mg/dL Urine Glucose (UA) (Normal) mg/dL Urine Ketones (Negative) mg/dL Urine Blood (Negative) Urine Nitrite (Negative) Urine Bilirubin (Negative) Urine Urobilinogen (Normal) mg/dL Ur Leukocyte Esterase (Negative) Ur Culture Indicated? (NO) Urine Test (Negative) Attestation Statement - Attestation Attestation: I examined this patient and my medical decision-making was reviewed with the Resident Physician. I agree with the documented findings, disposition and treatment plan as described except to the extent set forth below. [id number] time provided Patient arrives of right-sided abdominal pain. I did review the transcribed report of her CT abdomen and pelvis from her most recent visit dated 01/30/18. She is uncomfortable on exam. Concern for biliary colic.
[2018-01-31] MEDS ORDERED: Hyoscyamine SL 0.125 MG TAB.SUBL SL STA (13:01)
[2018-01-31 13:21] LABS: Bilirubin,Urine Negative (Negative); Blood,Urine Negative (Negative); Clarity,Urine Clear (Clear); Color,Urine Yellow (Yellow); Glucose,Urine (UA) Normal (Normal); Ketones,Urine Negative (Negative); Leukocyte Esterase,Urine Negative (Negative); Nitrite,Urine Negative (Negative); Protein,Urine Negative (Neg-Trace); Specific Gravity,Urine 1.023 (1.010-1.025); Urobilinogen,Urine Normal (Normal)
[2018-01-31 13:40] LABS: Basophils % 0.3 %; Eosinophils # 0.1 K/mcL (0.0-0.6); Eosinophils % 1.4 %; Hematocrit 40.7 % (35.3-44.9); Hemoglobin 13.9 g/dL (11.5-15.4); Immature Granulocytes % 0.9 % (0-4); Lymphocytes # 2.1 K/mcL (0.6-4.6); Lymphocytes % 31.1 %; Mean Corpuscular HGB Conc 34.2 g/dL (31.6-35.5); Mean Corpuscular Hemoglobin 30.8 pg (28.0-33.3); Mean Platelet Volume 11.3 fL (9.4-12.4); Monocytes # 0.3 K/mcL (0.0-1.3); Monocytes % 4.5 %; Neutrophils # 4.1 K/mcL (1.6-8.9); Platelet Count 233 K/mcL (140-400); Red Blood Count 4.52 M/mcL (3.82-4.97); Red Cell Distribution Width 12.2 % (11.5-14.5); Segmented Neutrophils % 61.8 %
[2018-01-31] MEDS ORDERED: cefTRIAXone 1,000 MG in Water for inj. (sterile) 20 ML 10 ML IVP ONE (14:40)
[2018-01-31 15:23] LABS: Potassium 5.1 mEq/L (3.5-5.1)
[2018-01-31 15:24] LABS: Alanine Aminotransferase 32 Units/L (7-52); Albumin 4.1 g/dL (3.5-5.7); Albumin/Globulin Ratio 1.4 (1.1-2.2); Alkaline Phosphatase 86 Units/L (34-104); Aspartate Amino Transferase 31 Units/L (13-39); BUN/Creatinine Ratio 21 (6-26); Bilirubin,Total 0.3 mg/dL (0.3-1.0); Blood Urea Nitrogen 18 mg/dL (6-20); Calcium 8.8 mg/dL (8.6-10.3); Carbon Dioxide 23 mEq/L (23-29); Chloride 109 mEq/L (98-107); Glucose 91 mg/dL (70-105); Osmolality,Calculated 289 (280-300); Sodium 139 mEq/L (136-145); Total Protein 7.1 g/dL (6.4-8.9); eGFR For African Americans > 60 (> 60); eGFR For Non-African Americans > 60 (> 60)
[2018-01-31] MEDS ORDERED: *HR* HYDROmorphone (PF) 1 MG/ML SYRINGE IVP SCH (15:30)
[2018-01-31] MEDS ORDERED: Ondansetron 4 MG/2 ML VIAL IVP SCH (15:30)
[2018-01-31] MEDS ORDERED: OXYCODONE Oral CONC 10 MG/0.5 ML ORAL.SYG SL PRN (19:43)
[2018-01-31] MEDS ORDERED: Ondansetron 4 MG/2 ML VIAL IVP PRN (19:47)
[2018-01-31] MEDS: 0.9 % Sodium Chloride 1,000 ML IVC SCH (22:20)
[2018-01-31] MEDS: *HR* FentaNYL (PF) 100 MCG/2 ML VIAL IVP SCH ×3 (23:20→23:22)
[2018-02-01] MEDS: cefOXitin 2,000 MG in Water for inj. (sterile) 20 ML 10 ML IVP SCH ×2 (00:06→08:41)
[2018-02-01] MEDS: 0.9 % Sodium Chloride 1,000 ML IVC SCH (05:40)
--- NOTE | 2018-02-01 07:32 | General Surg History&Physical ---
Date of Encounter: 02/01/18 Time of Encounter: 07:20 Assessment and Plan (1) Acute cholecystitis Current Visit: Yes Status: Acute The assessment and plan as outlined above was discussed with the patient and/or family members who expressed understanding and agreement. All questions were answered. Acute cholecystitis and cholelithiasis with recalcitrant right upper quadrant abdominal pain. She has received antibiotics and narcotic pain medicine with no relief of pain. She now presents for urgent laparoscopic cholecystectomy. I spent 10 minutes today going over the risks and benefits of surgery including bleeding infection postoperative bile leak and common bile duct. She understood and wished to proceed History of Present Illness Chief complaint: Right upper quadrant abdominal pain HPI: Ms. Payne is a 27 year old female With morbid obesity who presents with 5 days of abdominal pain. She had a CAT scan day before yesterday and yesterday. CAT scan demonstrated cholelithiasis and minimal pericholecystic changes. Ultrasound however demonstrated pericholecystic changes consistent with acute cholecystitis. She states that she has not previously had pain syndromes of this type. She denies shakes chills or fever. She denies episodes of jaundice. She has had both nausea and vomiting. She continues to be in recalcitrant pain. She now presents for urgent laparoscopic cholecystectomy Past Med Surg Social Fam HX - Past Medical History Medical history: asthma Psychiatric history: anxiety, depression - Past Surgical History Surgical History: (5 days ago) - Social History Smoking Status: Never smoker Smokeless Tobacco Status: No Alcohol use: none Drug use: none - Family History Father Living Status: Still Living Hx Family Cardiac Disorders: Yes Mother Adopted: No Twin of Family Member: Yes, Identical Living Status: Hx Family Cardiac Disorders: Yes (grandfather) Hx Family Respiratory Disorders: Yes (copd grandmother) Hx Family Cancer: Yes (aunts, breast cancer) Hx Family GI Disorders: No Hx Family Endocrine Disorder: No Hx Family Neuromuscular Disorders: No Hx Family Neurologic Disorders: No Hx Family HEENT Disorders: No Hx Family Autoimmune Disorders: No Medications and Allergies Ibuprofen [Motrin] 600 mg PO Q6HR PRN #60 tablet 08/28/17 [Rx] Albuterol Sulfate [Proair Hfa] 2 puff IH Q4H PRN 08/31/17 [History] 3 Allergy/AdvReac Type Severity Reaction Status Date / Time Amoxicillin [From Augmentin] Allergy Diarrhea Verified 01/30/18 03:51 clavulanic acid Allergy Diarrhea Verified 01/30/18 03:51 [From Augmentin] latex Allergy Rash Verified 01/30/18 03:51 Review of Systems All systems PM: The remainder of the systems were reviewed and are negative General Surgery Exam Initial Vital Signs Temp Pulse Resp BP Pulse Ox 97.3 F L 84 16 155/107 96 01/31/18 12:53 01/31/18 12:53 01/31/18 12:53 01/31/18 12:53 01/31/18 12:53 - General physical appearance well developed, well nourished, no distress, obese - Neck no masses, no bruits, trachea midline, no lymphadectomy, no venous distension - Respiratory normal expansion, normal respiratory effort, clear to percussion, clear to auscultation - Cardiovascular Cardiovascular exam: Present: RRR, no murmurs/rubs/gallops - Abdomen Abdomen general surgery: Present: tender Abdominal Tenderness: Present: RUQ (Involuntary guarding) - Neurologic Present: CN 2-12 grossly intact, normal coordination, normal sensation - Psychiatric Psychiatric general surgery: Present: appropriate, oriented to person, oriented to place, oriented to time, speech is normal, memory intact Results - Labs 01/31/18 13:20 01/31/18 13:20 Abnormal lab results Chloride 109 mEq/L (98-107) H 01/31/18 13:20 All other labs normal. - Imaging CT scan - abdomen: image reviewed (I personally reviewed CAT scan of the abdomen. CAT scan demonstrates minimal pericolic cystic fluid however the patient does have cholelithiasis and what appears to be gallbladder obstruction)
[2018-02-01] MEDS ORDERED: Albuterol 2.5 MG/3 ML NEBULIZER IH ONE (09:13)
[2018-02-01] MEDS ORDERED: Albuterol 2.5 MG/3 ML NEBULIZER ONE (09:15)
--- NOTE | 2018-02-01 09:16 | Anesthesia Evaluation PreOp ---
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 Other Medical History: Other (Morbid Obesity Anxiety) Anesthesia History: No Prior Anesthetic Complications : No Test: Negative Alcohol Use: none Drug use: none Medications and Allergies Ibuprofen [Motrin] 600 mg PO Q6HR PRN #60 tablet 08/28/17 [Rx] Albuterol Sulfate [Proair Hfa] 2 puff IH Q4H PRN 08/31/17 [History] 3 Allergy/AdvReac Type Severity Reaction Status Date / Time Amoxicillin [From Augmentin] Allergy Diarrhea Verified 01/30/18 03:51 clavulanic acid Allergy Diarrhea Verified 01/30/18 03:51 [From Augmentin] latex Allergy Rash Verified 01/30/18 03:51 - Meds/Allergy Pre-op Review Medications Reviewed: Yes Allergies Reviewed: Yes Beta Blockers on Current Med List: No Anesthesia Results - Labs 01/31/18 13:20 01/31/18 13:20 O2 Sat Height 1.7 m Height 1.7 m Weight 118.6 kg Weight 118.6 kg Weight 113.398 kg O2 Sat by Pulse Oximetry 95 O2 Sat by Pulse Oximetry 97 O2 Sat by Pulse Oximetry 98 O2 Sat by Pulse Oximetry 59 O2 Sat by Pulse Oximetry 99 O2 Sat by Pulse Oximetry 98 O2 Sat by Pulse Oximetry 96 O2 Sat by Pulse Oximetry 96 Vital Signs Temp Pulse Resp BP Pulse Ox 97.3 F L 84 16 155/107 96 01/31/18 12:53 01/31/18 12:53 01/31/18 12:53 01/31/18 12:53 01/31/18 12:53 Anesthesia Exam Vital Signs/O2 Sat/Glucose, Most Current Temp Pulse Resp BP Pulse Ox 02/01/18 07:40 97.6 F 60 18 116/63 95 Height: 5'7 Weight: 261 lbs NPO (# of Hours): MN Pain Scale: 0 - HEENT Pupil (Motor): Pupils equal, EOMI Mallampati: II Teeth: Normal Oral Opening: Greater than 3 - DECATING MACHINE OPERATOR LOC: Oriented DECATING MACHINE OPERATOR Motor: Normal RUE, Normal LUE, Normal RLE, Normal LLE, Normal Face DECATING MACHINE OPERATOR Sensory: Normal: RUE, LUE, RLE, LLE, Face - Cardiac Rhythm: Regular Murmur: None JVD: No Carotid Bruit: No - Pulmonary Breath Sounds: bilateral Clear Respiratory Effort: Symmetrical Anesthesia Assess/Plan ASA Score: 3 ([place] Asthma) Modified Pansey Scale for Level of Consciousness: Cooperative, oriented, and tranquil Anesthetic Plan: General, Regional Monitoring Plan: Standard Monitors Recovery Plan: PACU (Discussed GA, possible TAP Block Rescue if needed post op, agrees to proceed)
[2018-02-01] MEDS ORDERED: Famotidine 20 MG/2 ML VIAL ONE (09:20)
[2018-02-01] MEDS ORDERED: Acetaminophen IV 1,000 MG/100 ML INFUS..BTL ONE (09:20)
[2018-02-01] MEDS ORDERED: CefOXitin 1,000 MG VIAL ONE (09:29)
[2018-02-01] MEDS ORDERED: Isovue-300 50 ML VIAL IVP ONE (09:29)
[2018-02-01] MEDS ORDERED: Dexamethasone 4 MG/ML VIAL ONE (09:32)
[2018-02-01] MEDS ORDERED: *HR* Succinylcholine 200 MG/10 ML VIAL IVP ONE (09:32)
[2018-02-01] MEDS ORDERED: *HR* FentaNYL (PF) 100 MCG/2 ML VIAL ONE (09:32)
[2018-02-01] MEDS ORDERED: Ondansetron 4 MG/2 ML VIAL ONE (09:32)
[2018-02-01] MEDS ORDERED: Lidocaine -MPF 2% 2 ML VIAL ONE (09:32)
[2018-02-01] MEDS ORDERED: *HR* Rocuronium Bromide 50 MG/5 ML VIAL ONE (09:32)
[2018-02-01] MEDS ORDERED: *HR* Propofol 200 MG/20 ML VIAL IVP ONE (09:32)
[2018-02-01] MEDS ORDERED: Lidocaine -MPF 4% 5 ML AMPUL ONE (09:33)
[2018-02-01] MEDS ORDERED: Ketorolac 30 MG/ML VIAL ONE (09:37)
[2018-02-01] MEDS ORDERED: cefOXitin 1,000 MG, 0.9 % Sodium Chloride 1,000 ML IR ONE (10:00)
[2018-02-01] MEDS ORDERED: Neostigmine Methylsulfate 3 MG/3 ML SYRINGE ONE (10:41)
[2018-02-01] MEDS ORDERED: *HR* Morphine 10 MG/ML VIAL ONE (10:45)
--- NOTE | 2018-02-01 10:53 | Operative Note ---
Date of procedure: 02/01/18 Pre-op diagnosis: Acute cholecystitis and cholelithiasis Post-op diagnosis: same Procedure: Laparoscopic cholecystectomy, cholangiogram Anesthesia: ELAINA Surgeon: Leno Núñez Was there an marketing assistant present: No Estimated blood loss (cc): 10 Specimen: Gallbladder and contents Condition: stable Disposition: PACU Procedure in Detail: Laparoscopic cholecystectomy and intraoperative cholangiogram Operative procedure after informed consent and appropriate patient identification timeout the patient was taken to the major operating suite and placed supine position given adequate general endotracheal anesthesia the abdomen is prepped and draped in sterile fashion utilizing ChloraPrep standard draping techniques timeout was taken patient is identified. I made a vertical midline incision below the umbilicus dissected down to level of fascia there are 2 traction stitches placed in the abdominal cavity was entered visually. A Balderas trocar was placed in the abdomen and the abdomen was insufflated to 15 mmHg pressure CO2 the gallbladder was visualized. A placement 11 port in the subxiphoid area and 2 5 mm ports in the subcostal area. The gallbladder was grasped and elevated. A variety of blunt and sharp dissection techniques were used to isolate the cystic duct and cystic artery. The cystic artery was controlled with 2 surgical clips proximally and one distally and it was divided I placed a surgical clip on the neck the gallbladder and obtained an intraoperative cholangiogram using 10 mL of Isovue. Intraoperative cholangiogram was normal. The cholangiocatheter was removed and the cystic duct was controlled with 2 surgical clips proximally and was divided the gallbladder was removed from the gallbladder fossae using electrocautery. The gallbladder was removed through the #11 port site using ring forceps stone disimpaction. I replaced the #11 port and irrigated with copious amounts of antibiotic containing solution. There is no evidence of bleeding or bile leak. All trochars were removed. Fascia was closed with 0 Vicryl skin with 2-0 and 4-0 Vicryl she tolerated the procedure well and was transferred to recovery in stable condition
--- NOTE | 2018-02-01 10:55 | Discharge Summary ---
- NOTES TO OUTPATIENT PROVIDER Notes to Outpatient Provider: Status post laparoscopic cholecystectomy Orders not resulted at time of discharge: Pending orders 02/01/18 10:45 Surgical Pathology [PTH] Routine Date of Encounter: 02/01/18 Time of Encounter: 12:00 - Discharge Diagnosis (1) Acute cholecystitis Priority: Primary Status: Acute Comments: Acute cholecystitis, gallbladder obstruction, cholelithiasis General Surgery Exam Initial Vital Signs Temp Pulse Resp BP Pulse Ox 97.3 F L 84 16 155/107 96 01/31/18 12:53 01/31/18 12:53 01/31/18 12:53 01/31/18 12:53 01/31/18 12:53 - General physical appearance well developed, well nourished, no distress - Respiratory normal expansion, normal respiratory effort, clear to percussion, clear to auscultation - Cardiovascular Cardiovascular exam: Present: RRR, no murmurs/rubs/gallops - Abdomen Abdomen general surgery: Present: bowel sounds present, soft, non tender - Incision Incision: Present: clean and dry, intact - Neurologic Present: CN 2-12 grossly intact, normal coordination, normal sensation - Psychiatric Psychiatric general surgery: Present: appropriate, oriented to person, oriented to place, oriented to time, speech is normal, memory intact - Hospital Course Hospital course: Ms. Payne is a 27 year old female - Time Spent with Patient Total time spent providing and/or coordinating discharge services: - Discharge Medications Prescriptions: OxyCODONE/APAP 10/325 [Percocet 10/325 MG] 1 each PO Q6HR PRN 7 Days #24 tablet PRN Reason: Pain Home Medications: Ibuprofen [Motrin] 600 mg PO Q6HR PRN #60 tablet 08/28/17 [Rx] Albuterol Sulfate [Proair Hfa] 2 puff IH Q4H PRN 08/31/17 [History] OxyCODONE/APAP 10/325 [Percocet 10/325 MG] 1 each PO Q6HR PRN 7 Days #24 tablet 02/01/18 [Rx] Allergies/Adverse Reactions: 3 Allergy/AdvReac Type Severity Reaction Status Date / Time Amoxicillin [From Augmentin] Allergy Diarrhea Verified 01/30/18 03:51 clavulanic acid Allergy Diarrhea Verified 01/30/18 03:51 [From Augmentin] latex Allergy Rash Verified 01/30/18 03:51 Date of admission: 01/31/18 18:27 Primary care physician: José Antonio Palacios MD Discharging clinician: Leno Núñez Anticipated date of discharge: 02/01/18 Procedures and tests throughout hospitalization: Laparoscopic cholecystectomy, cholangiogram Labs on day of discharge: Labs from last 24 hours 02/01/18 01/31/18 05:49 23:27 POC Glucose 80 74 - Impressions ITS Impressions Cholangiogram,Operative 02/01/18 10:27 IMPRESSION: Intraprocedural fluoroscopic spot images as above. See separate procedure report for more information. D/ / David Bower MD / David Bower MD Interpreting Provider: David Bower MD - Patient Status Disposition: Home, Self-Care Condition: Good Functional capacity at discharge: independent ambulation Overall status at discharge: patient is progressing back to baseline - Discharge Instructions Instructions: Laparoscopic Cholecystectomy (DC) Follow Up With: José Antonio Palacios MD [Primary Care Provider] - Additional Instructions: He may use an ice pack. Do not drive a car wall taking narcotic pain medicine - Diet and Activity Activity: increase activity as tolerated Diet: advance to your usual diet
[2018-02-01] MEDS ORDERED: *HR* OxyCODONE/APAP 10/325 TABLET PO PRN (11:43)
[2018-02-01] MEDS ORDERED: OXYCODONE Oral CONC 10 MG/0.5 ML ORAL.SYG SL PRN (11:43)
[2018-02-01] MEDS ORDERED: Ondansetron 4 MG/2 ML VIAL IVP PRN (11:43)
[2018-02-01] MEDS ORDERED: 0.9 % Sodium Chloride 1,000 ML IVC SCH (11:43)
--- NOTE | 2018-02-01 12:58 | Anesthesia Evaluation Post Op ---
Date of Encounter: 02/01/18 Time of Encounter: 11:35 - Vital Signs Vital Signs: Vital Signs/O2 Sat/Glucose, Most Current Temp Pulse Resp BP Pulse Ox 02/01/18 12:43 97.6 F 60 18 119/75 94 02/01/18 12:15 97.9 F 54 18 109/75 98 02/01/18 11:44 97.5 F L 70 18 105/74 95 02/01/18 11:25 97.7 F 65 16 108/74 94 02/01/18 11:15 64 16 116/70 93 02/01/18 11:05 71 16 132/85 93 02/01/18 10:55 98.3 F 74 12 119/84 91 - Lungs Lungs: Clear Ascult./Percussion - Airway Airway: Non-obstructed - Cardiovascular Regular Rate - Mental Status Mental Status: Alert & Oriented, Answers Appropriately - Pain Pain Scale: 1 - Nausea Vomiting Nausea Vomiting: Not Present - Hydration Hydration: NPO - Discharge PostOp Status: Transfer Patient to floor
[2018-02-01 14:43] VITALS: BP 98/64
[2018-02-01] MEDS ORDERED: cefOXitin 2,000 MG in Water for inj. (sterile) 20 ML 10 ML IVP SCH (16:00)
== END 2018-02-01 16:05 | disposition home or self-care (01) ==
LOC: 3ANU 12:40 → EMEROO 12:40 → 3ANU 18:55
PROVIDERS: ADMIT Surgery; ATTEND Surgery

== ENCOUNTER → 2019-03-15 20:00 | Observation (INO) ==
[2019-03-15 19:06] LABS: Bilirubin,Urine Negative (Negative); Blood,Urine Negative (Negative); Clarity,Urine Cloudy (Clear); Color,Urine Yellow (Yellow); Glucose,Urine (UA) Normal (Normal); Ketones,Urine Negative (Negative); Leukocyte Esterase,Urine Negative (Negative); Nitrite,Urine Negative (Negative); Protein,Urine Negative (Neg-Trace); Specific Gravity,Urine 1.025 (1.010-1.025); Urobilinogen,Urine Normal (Normal)
[2019-03-15 19:10] LABS: Bacteria,Urine None Seen per hpf (None-Few); Hyaline Casts,Urine None Seen per lpf (None-Few); Squamous Epithelial Cell,Urine Many per lpf (None-Few); WBC,Urine 0-3 per hpf (0-3)
[2019-03-15 19:13] LABS: Trichomonas DNA Not Detected (Not Detect)
[2019-03-15 19:14] LABS: Candida DNA Not Detected (Not Detect); Gardnerella DNA DETECTED (Not Detect)
[2019-03-15 19:20] LABS: Amphetamine Screen,Urine Negative ng/mL (Cutoff=1000); Barbiturate Screen,Urine Negative ng/mL (Cutoff=200); Benzodiazepines Screen,Urine Negative ng/mL (Cutoff=200); Cannabinoid Screen,Urine Negative ng/mL (Cutoff = 50); Cocaine Screen,Urine Negative ng/mL (Cutoff= 300); Opiate Screen,Urine Negative ng/mL (Cutoff=300); Phencyclidine Screen,Urine Negative ng/mL (Cutoff=25)
[2019-03-15 20:19] LABS: Calcium Oxalate Crystals,Urine Present
[2019-03-15 20:20] LABS: RBC,Urine 0-3 per hpf (0-3)
--- NOTE | 2019-03-15 20:30 | Discharge Summary ---
Date of Encounter: 03/15/19 Time of Encounter: 20:31 - Discharge Diagnosis (1) 33 weeks gestation of Priority: Primary Status: Acute Comments: Admit to observation for labor evaluation (2) Bacterial vaginosis Priority: Secondary Status: Acute Comments: Vaginosis panel positive for Gardnerella. Prescription given to patient for clindamycin gel 7 days. She was previously treated with MetroGel for bacterial vaginosis in December of this year. (3) NST (non-stress test) reactive Priority: Secondary Status: Acute Comments: FHR 125 bpm, moderate variability, +15x15 accels, no decels. (4) Condyloma acuminata of vulva in in third trimester Priority: Secondary Status: Acute Comments: To follow up with Dr. Spears in the office tomorrow for routine visit. - Discharge Medications Prescriptions: New Clindamycin Vag CRM 1 appl VG HS 7 Days #1 tube No Action Pnv95/Ferrous Fumarate/FA [ Vitamin Tablet] 1 tab PO DAILY Acetaminophen [Tylenol] 1,000 mg PO Q6HR #120 tablet Home Medications: Acetaminophen [Tylenol] 1,000 mg PO Q6HR #120 tablet 01/03/19 [Rx] Pnv95/Ferrous Fumarate/FA [ Vitamin Tablet] 1 tab PO DAILY 01/03/19 [History] Clindamycin Vag CRM 1 appl VG HS 7 Days #1 tube 03/15/19 [Rx] Allergies/Adverse Reactions: Allergy/AdvReac Type Severity Reaction Status Date / Time latex Allergy Rash Verified 01/03/19 09:55 Penicillins Allergy Anaphylaxis Verified 01/03/19 13:46 Amoxicillin [From Augmentin] AdvReac Diarrhea Verified 01/03/19 09:55 clavulanic acid AdvReac Diarrhea Verified 01/03/19 09:55 [From Augmentin] Data Procedures and tests throughout hospitalization: Laboratory Tests 03/15/19 03/15/19 03/15/19 17:50 17:50 18:50 Urine Color Yellow Urine Clarity Cloudy A Urine pH 6.0 Ur Specific Hines 1.025 Urine Protein Negative Urine Glucose (UA) Normal Urine Ketones Negative Urine Blood Negative Urine Nitrite Negative Urine Bilirubin Negative Urine Urobilinogen Normal Ur Leukocyte Esterase Negative Urine Microscopic RBC 0-3 Urine Microscopic WBC 0-3 Ur Squamous Epith Cells Many H Calcium Oxalate Crystal Present Urine Bacteria None Seen Hyaline Casts None Seen Urine Opiates Screen Negative Ur Barbiturates Screen Negative Ur Phencyclidine Scrn Negative Ur Amphetamines Screen Negative U Benzodiazepines Scrn Negative Urine Cocaine Screen Negative U Marijuana (THC) Screen Negative Ur Drug Screen Interp See Below Elsa species DNA Not Detected Gardnerella DNA Probe DETECTED A Trichomonas DNA Probe Not Detected Labs on day of discharge: Labs from last 24 hours 03/15/19 03/15/19 03/15/19 18:50 17:50 17:50 Urine Color Yellow Urine Clarity Cloudy A Urine pH 6.0 Ur Specific Hines 1.025 Urine Protein Negative Urine Glucose (UA) Normal Urine Ketones Negative Urine Blood Negative Urine Nitrite Negative Urine Bilirubin Negative Urine Urobilinogen Normal Ur Leukocyte Esterase Negative Urine Microscopic RBC 0-3 Urine Microscopic WBC 0-3 Ur Squamous Epith Cells Many H Calcium Oxalate Crystal Present Urine Bacteria None Seen Hyaline Casts None Seen Urine Opiates Screen Negative Ur Barbiturates Screen Negative Ur Phencyclidine Scrn Negative Ur Amphetamines Screen Negative U Benzodiazepines Scrn Negative Urine Cocaine Screen Negative U Marijuana (THC) Screen Negative Ur Drug Screen Interp See Below Elsa species DNA Not Detected Gardnerella DNA Probe DETECTED A Trichomonas DNA Probe Not Detected Date of admission: 03/15/19 17:11 Discharging clinician: Bibiana Harris Anticipated date of discharge: 03/15/19 - Patient Status Disposition: Home, Self-Care Condition: Good Functional capacity at discharge: independent ambulation Overall status at discharge: patient is progressing back to baseline - Discharge Instructions Follow Up With: Madalyn Spears DO [Partnered Physician] - Additional Instructions: KEEP ALL OB APPOINTMENTS LABOR AND DELIVERY DISCHARGE INSTRUCTIONS Signs and Symptoms to be Reported to your Doctor Immediately: * Sudden gush, continuous or intermittent lead of fluid from vagina (note the time of gush and color of fluid) * Onset of bright red vaginal bleeding with or without pain (if you had a vaginal exam during this visit you may notice some dark red spotting. This is normal.) * Lower abdominal cramping or backache that is premenstrual-like feeling. * More than 6 contractions in one hour. * Burning during urination, having to urinate more frequently or pain in your mid-back. * A change in the baby's activity. This could be an increase or decrease in activity. * Severe headache which does not go away with tylenol. * Sudden swelling in the face, hands, arms and/or legs. * Upper abdominal pain - sometimes associated with heartburn or nausea and is not relieved by Maalox, Mylanta or Tums. * Dizziness or blurred vision or visual disturbances (seeing stars/lights). * Kick Counts One hour after a meal, lay down on one side in a quiet place. Count the number of jazmine the baby moves during an hour. If less than 6 movements, notify your physician. Diet: *Force fluids - 8-10 tall glasses of fluid per day. May include popsicles and jello. *Limit caffeine - this includes chocolate, coffee, tea, any soft drink containing such as all venancio, Jude Yellow and Mountain Dew - Diet and Activity Activity: resume usual activities as tolerated Diet: regular diet Hospital Course [employer] Hospital course: Patient arrived with complaints of abdominal pain, lower extremity swelling, feeling like she could not breathe. She does report positive movement, denies vaginal bleeding and fluid leakage. She is having some abdominal pain but is unable to tell if it is contractions. She states that she was treated for Trichomonas earlier in and does have some concern that has reoccurred. A vaginosis panel was collected with a sterile speculum exam. Small amount of white vaginal discharge noted in vaginal vault. Unable to visualize cervix. SVE was closed thick and high. At time of sterile speculum exam a large marble sized condyloma was noted on the right labia along with a smaller one closer to the groin. The large condyloma noted to be bleeding at the base and patient complaints of discomfort in that area. Patient was also complaining of lower extremity swelling and at times she feels like her feet are tingling from the amount of swelling she is having. She reports she had cardiomyopathy with her previous delivery and had a . She reports the swelling she is currently having is similar to what she had in her previous . Her pulse ox was greater than 95% throughout her stay and vitals were within normal limits. Urinalysis was unremarkable and vaginosis panel returned positive for bacterial vaginosis. She was treated for the same thing in December with MetroGel. She has been given a prescription for clindamycin gel for 7 days. She has an appointment with Dr. Spears for routine care tomorrow at which time she is instructed to discuss removal of genital warts due to them being painful. Time Attestation: Total time spent providing and/or coordinating discharge services: Time Spent: Less than 30 minutes Exam - Constitutional General appearance IM: A&O X 3, pleasant, no acute distress, answers questions appropriately - Respiratory Respiratory exam: Present: CTAB - Cardiovascular Cardiovascular exam IM: Present: RRR, +S1, +S2 - GI/Abdominal GI/Abdominal exam IM: normal bowel sounds, soft - Rectal Rectal exam: deferred - Additional comments: 2 skin tags noted on vulva, one marble sized and both appear like genital warts. Patient states the largest one has developed over the last couple of weeks. - Extremities Exam Extremities exam IM: Present: full ROM, normal capillary refill, normal inspection - Neurological Exam Neurological exam: alert, normal gait, oriented X3 - VTE Reasons for not Prescribing Prophylaxis: Treatment not Indicated - Low risk for VTE
== END | disposition home or self-care (01) ==
LOC: 1NENULAB
PROVIDERS: ADMIT Registered Nurse; ATTEND Registered Nurse